=== PATIENT | female | born 1960 | race African-American/Black ===

== ENCOUNTER 2016-09-11 09:17 | Inpatient (IN) | payer MEDICAID, OTHER ==
[~2016-09-11] VITALS: Ht 170.2 cm; Wt 68.0 kg
[~2016-09-11 09:17] MED LIST: ADVAIR 250/501 PUFFS INH; CARDIZEM60 MG ORAL; CARVEDILOL12.5 MG ORAL; COREG6.25 MG ORAL; CYCLOBENZAPRINE10 MG ORAL; FERROUS SULFAT325 MG ORAL; FUROSEMIDE40 MG ORAL; HYDRALAZINE HCL50 MG ORAL; IBUPROFEN600 MG ORAL; LEVAQUIN500 MG ORAL; LISINOPRIL10 MG ORAL; MEDROL4 MG ORAL; NORCO 5-325 TA1 EACH ORAL; NORVASC10 MG ORAL; PROAIR HFA8.5 GM INH
[2016-09-11 10:00] VITALS: BP 174/137
[2016-09-11] MEDS: Ipratropium 0.02% Inh Soln 2.5ml UD HHN SCH ×3 (10:12→11:11)
[2016-09-11] MEDS: Albuterol ud Inhalation HHN SCH ×3 (10:12→11:11)
[2016-09-11] MEDS ORDERED: Solu-MEDROL 125mg Inj IVP ONE (10:15)
[2016-09-11 10:39] LABS: BASOPHILS % (AUTO) 0.8 % (0.0-2.0); EOSINOPHILS % (AUTO) 1.5 % (0.0-3.0); LYMPHOCYTES % (AUTO) 16.1 % (20.0-45.0); MEAN CORPUSCULAR HEMOGLOBIN 26.5 PG (27.0-31.0); MEAN CORPUSCULAR HGB CONC 31.3 G/DL (32.0-36.0); MEAN CORPUSCULAR VOLUME 85 FL (80-99); MEAN PLATELET VOLUME 10.8 FL (6.5-10.1); MONOCYTES % (AUTO) 6.8 % (1.0-10.0); NEUTROPHILS % (AUTO) 74.7 % (45.0-75.0); PLATELET COUNT 128 K/UL (150-450); RED BLOOD COUNT 5.39 M/UL (4.20-5.40); WHITE BLOOD COUNT 8.6 K/UL (4.8-10.8)
[2016-09-11 11:00] LABS: ALANINE AMINOTRANSFERASE 22 U/L (3-33); ALBUMIN/GLOBULIN RATIO 1.4 (1.0-2.7); ANION GAP 14 (5-15); ASPARTATE AMINO TRANSFERASE 35 U/L (5-40); CALCIUM 9.4 mg/dL (8.6-10.2); CARBON DIOXIDE 25 mEQ/L (20-30); CHLORIDE 102 mEQ/L (98-107); GLOMERULAR FILTRATION RATE > 60 mL/min (>60); HEMOLYSIS 5; POTASSIUM 4.1 mEQ/L (3.4-4.9); SODIUM 141 mEQ/L (135-145); TROPONIN I < 0.30 ng/mL (<=0.30)
[2016-09-11 11:10] LABS: CKMB 2.9 ng/mL (< 3.8)
[2016-09-11] MEDS ORDERED: Diltiazem 25mg/5ml IV ONE ×2 (11:15→14:00)
[2016-09-11 11:54] VITALS: BP 170/134
[2016-09-11] MEDS ORDERED: Ketorolac 30mg Inj IV PRN (12:45)
[2016-09-11] MEDS ORDERED: LORazepam Inj 2mg/ml 1ml IV PRN (12:45)
[2016-09-11] MEDS ORDERED: Nitroglycerin Subl 0.4mg tab (Bottle Of 25) SL PRN (12:45)
[2016-09-11] MEDS ORDERED: Morphine Sulfate 2mg/ml Inj IVP PRN (12:45)
[2016-09-11] MEDS ORDERED: DuoNeb 0.5-3(2.5)mg/3ml neb HHN PRN (12:45)
[2016-09-11] MEDS ORDERED: Promethazine/Codeine 5ml UD ORAL PRN (12:45)
[2016-09-11 14:34] VITALS: BP 176/133
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
[2016-09-11 15:11] VITALS: BP 177/135
[2016-09-11] MEDS ORDERED: NovoLOG Insulin Flexpen SUBQ SCH (16:30)
[2016-09-11 17:22] VITALS: BP 176/135
[2016-09-11] MEDS: HydrALAZINE 50mg tab ORAL SCH (18:16)
[2016-09-11] MEDS: Solu-MEDROL 125mg Inj IV SCH (18:16)
[2016-09-11] MEDS: Lisinopril 20mg tab ORAL SCH (18:16)
[2016-09-11 18:29] VITALS: BP 193/152
[2016-09-11] MEDS: Carvedilol 12.5mg tab ORAL SCH (18:38)
[2016-09-11] MEDS ORDERED: Zosyn 2.25gm inj ONE (19:11)
[2016-09-11] MEDS: Piperacillin/Tazobactam 2.25 GM in D5W 55 ML IV SCH ×2 (19:17→22:13)
[2016-09-11] MEDS: Heparin 5000 units/ml inj SUBQ SCH (21:00)
[2016-09-11] MEDS: Theophylline ER 100mg ORAL SCH (22:11)
[2016-09-12] VITALS (7 sets, daily range): BP systolic 106–155; BP diastolic 75–105
[2016-09-12] MEDS: HydrALAZINE 50mg tab ORAL SCH ×4 (00:39→18:56)
[2016-09-12] MEDS: Solu-MEDROL 125mg Inj IV SCH ×3 (00:39→12:16)
[2016-09-12] MEDS ORDERED: Zosyn 2.25gm inj ONE (06:08)
[2016-09-12] MEDS: Piperacillin/Tazobactam 2.25 GM in D5W 55 ML IV SCH ×3 (06:27→21:47)
[2016-09-12] MEDS: Carvedilol 12.5mg tab ORAL SCH ×2 (08:47→18:56)
[2016-09-12] MEDS: Theophylline ER 100mg ORAL SCH ×2 (08:47→21:47)
[2016-09-12] MEDS: Lisinopril 20mg tab ORAL SCH ×2 (08:47→18:57)
[2016-09-12] MEDS: Heparin 5000 units/ml inj SUBQ SCH ×2 (08:48→21:00)
[2016-09-12] MEDS: Furosemide 40mg tab ORAL SCH (08:48)
--- NOTE | 2016-09-12 13:39 | History and Physical ---
History of Present Illness General Reason for Hospitalization: Upper Respiratory Illness Present Illness HPI 56-year-old female presented to ED complaining of cough and shortness of breath. reports congestion for few days Cough productive, no fevers or chills + wheezing, intermittent SOB, no hemoptysis hx of COPD, active smoker also complained of chest pain, sharp, midsternal /10, nonradiating aptietn found to be hypertensive and tachycardic ECG with AF with RVR, Cardizem x 2 given in ER with improvement, troponin negative started on IV steroids patient admitted of being noncompliant with medications urine drug screen + cocaine admitted to tele for further management Allergies: Coded Allergies: SULFA (SULFONAMIDE ANTIBIOTICS) (Unverified Allergy, Unknown, 03/29/14) Medication History Scheduled Albuterol Sulfate* (Proair Hfa*), 1 PUFF INH Q6H Carvedilol (Coreg), 6.25 MG ORAL EVERY 12 HOURS Carvedilol* (Carvedilol*), 12.5 MG ORAL BID, (Reported) Diltiazem Hcl* (Cardizem*), 60 MG ORAL EVERY 8 HOURS Ferrous Sulfate* (Ferrous Sulfate*), 325 MG ORAL DAILY, (Reported) Fluticasone/Salmeterol (Advair 250-50 Diskus), 1 PUFF INH EVERY 12 HOURS Furosemide* (Lasix*), 40 MG ORAL DAILY, (Reported) Hydralazine Hcl* (Hydralazine Hcl*), 50 MG ORAL EVERY 6 HOURS, (Reported) Levofloxacin* (Levaquin*), 500 MG ORAL DAILY Lisinopril* (Lisinopril*), 10 MG ORAL BID Methylprednisolone* (Medrol*), 4 MG ORAL DAILY Patient History History Provided By: Patient Healthcare decision maker Resuscitation status Full Code Advanced Directive on File Past Medical/Surgical History Past Medical/Surgical History: (1) Afib (2) HTN (hypertension) (3) COPD (chronic obstructive pulmonary disease) (4) Drug abuse (5) Atrial flutter (6) CHF (congestive heart failure) Social History Social History: (1) Cocaine abuse Review of Systems Constitutional: Reports: no symptoms Eye: Reports: no symptoms ENT: Reports: no symptoms Respiratory: Reports: see HPI Cardiovascular: Reports: see HPI Gastrointestinal: Reports: no symptoms Genitourinary: Reports: no symptoms Musculoskeletal: Reports: no symptoms Skin: Reports: no symptoms Psychiatric: Reports: no symptoms Neurological: Reports: no symptoms Endocrine: Reports: no symptoms Hematologic/Lymphatic: Reports: no symptoms Physical Exam General Appearance: WD/WN, no apparent distress Lines, tubes and drains: peripheral HEENT: normocephalic, atraumatic, anicteric, mucous membranes moist, PERRL Neck: non-tender, normal alignment, supple Respiratory/Chest: chest wall non-tender, no respiratory distress, no accessory muscle use, expiratory wheezing - throughout all herrera Cardiovascular/Chest: normal peripheral pulses, no JVD, irregularly irregular - rate controlled Abdomen: normal bowel sounds, non tender, soft Extremities: normal range of motion, non-tender, no calf tenderness, normal capillary refill Skin Exam: normal pigmentation, warm/dry Neurologic: alert, oriented x 3, responsive, normal mood/affect Musculoskeletal: normal muscle bulk Last 24 Hour Vital Signs Date Time Temp Pulse Resp B/P Pulse Ox O2 Delivery O2 Flow Rate FiO2 09/12/16 13:08 104 106/78 09/12/16 12:00 98.2 85 18 106/78 98 Room Air 83 09/12/16 12:00 106/78 09/12/16 12:00 80 09/12/16 08:47 135/75 09/12/16 08:47 94 135/75 09/12/16 08:00 88 09/12/16 08:00 97.9 94 17 135/75 98 Room Air 09/12/16 06:35 93 20 Room Air 09/12/16 06:27 130/83 09/12/16 06:27 93 130/83 09/12/16 06:25 93 130/83 09/12/16 04:18 97.3 77 20 124/92 95 Room Air 09/12/16 04:08 94 09/12/16 00:39 155/105 09/12/16 00:25 97.2 84 20 155/105 97 Room Air 09/11/16 23:44 74 09/11/16 23:44 74 09/11/16 22:10 90 150/109 09/11/16 22:00 92 22 Room Air 21 09/11/16 21:15 82 09/11/16 20:53 90 25 141/112 98 Room Air 1/20/17 19:13 186/147 09/11/16 18:38 89 205/148 09/11/16 18:29 97.6 88 12 193/152 99 Room Air 09/11/16 18:16 184/145 09/11/16 18:16 184/145 09/11/16 17:22 100 20 176/135 100 Room Air 09/11/16 16:30 96 182/132 09/11/16 15:11 99 22 177/135 98 Room Air 09/11/16 14:34 99 20 176/133 96 Room Air 09/11/16 13:57 103 202/146 Intake and Output 09/11/16 09/12/16 19:00 07:00 Intake Total 700 ml Balance 700 ml Intake Oral 480 ml IV Total 220 ml # Voids 1 # Bowel Movements 1 Height (Feet): 5 Height (Inches): 7.00 Weight (Pounds): 150 Medications Current Medications Medications (Trade) Dose Ordered Sig/Ruben Route PRN Reason Start Time Stop Time Status Last Admin Dose Admin Albuterol/ Ipratropium (DuoNeb 0.5-3(2.5)mg/3ml) 3 ml Q4H PRN HHN dyspnea 09/11/16 12:45 09/16/16 12:44 Carvedilol (Coreg) 12.5 mg BID ORAL 09/11/16 18:00 10/11/16 17:59 09/12/16 08:47 Clonidine HCl (Catapres) 0.1 mg Q4H PRN ORAL SBP>160 09/11/16 20:30 10/11/16 20:29 Dextrose (Dextrose 50%) STAT PRN IV Hypoglycemia 09/11/16 12:45 10/11/16 12:44 Diltiazem HCl (Cardizem) 60 mg EVERY 8 HOURS ORAL 09/11/16 14:00 10/11/16 13:59 09/12/16 13:08 Furosemide (Lasix) 40 mg DAILY ORAL 09/12/16 09:00 10/12/16 08:59 09/12/16 08:48 Heparin Sodium (Porcine) (Heparin 5000 units/ml) 5,000 units EVERY 12 HOURS SUBQ 09/11/16 21:00 10/11/16 20:59 Hydralazine HCl (Apresoline) 50 mg EVERY 6 HOURS ORAL 09/11/16 18:00 2/19/17 17:59 09/12/16 06:27 Ketorolac Tromethamine (Toradol 30mg) 30 mg Q8H PRN IV moderate pain 4-6 09/11/16 12:45 09/16/16 12:44 Lisinopril (Prinivil) 10 mg BID ORAL 09/11/16 18:00 10/11/16 17:59 09/12/16 08:47 Lorazepam (Ativan 2mg/ml 1ml) 0.5 mg Q4H PRN IV For Anxiety 09/11/16 12:45 09/18/16 12:44 Methylprednisolone Sodium Succinate (Solu-MEDROL) 60 mg EVERY 6 HOURS IV 09/11/16 18:00 10/11/16 17:59 09/12/16 12:16 Morphine Sulfate (Morphine Sulfate) 2 mg Q4H PRN IVP severe pain 7-10 09/11/16 12:45 09/18/16 12:44 Nitroglycerin (Ntg) 0.4 mg Q5M X 3 DOSES PRN SL Prn Chest Pain 09/11/16 12:45 10/11/16 12:44 09/11/16 19:13 Ondansetron HCl (Zofran) 4 mg Q6H PRN IVP Nausea & Vomiting 09/11/16 12:45 10/11/16 12:44 Piperacillin Sod/ Tazobactam Sod/ Dextrose (Zosyn/D5W) 55 ml @ 110 mls/hr EVERY 8 HOURS IV 09/11/16 19:00 09/16/16 18:59 09/12/16 13:14 Promethazine HCl/ Codeine (Phenergan with Codeine) 5 ml Q6H PRN ORAL cough 09/11/16 12:45 10/11/16 12:44 Temazepam (Restoril) 15 mg HSPRN PRN ORAL Insomnia 09/11/16 12:45 09/18/16 12:44 Theophylline 100 mg 100 mg EVERY 12 HOURS ORAL 09/11/16 21:00 10/11/16 20:59 09/12/16 08:47 Assessment/Plan Assessment/Plan ASSESSMENT HTN emergency acute COPD exacerbation AF with RVR - resolved chronic A fib/A flutter Cocaine abuse noncompliance with medications active smoker PLAN OF CARE tele O2 HHN prn IV steroids and taper gradually, still severe wheeling empiric abx sputum cx fup with CXR , initial CXR finding c/w COPD, but no acute finding continue Theophylline antitussive prn BP management with BB , CCB, Hydralazine and NATHAN, optimize as needed A fib likely chronic, rate control with BB and Cardizem no anticoagulation yet -per cardio discretion cardio eval pending patient is not aware that she has arrhythmia continue Lasix, monitor renal parameters, lytes trend pro BNP ECHO DVT prophylaxis 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
--- NOTE | 2016-09-12 16:45 | Cardiology Progress Note ---
Subjective Subjective [id number] Objective Last 24 Hour Vital Signs Date Time Temp Pulse Resp B/P Pulse Ox O2 Delivery O2 Flow Rate FiO2 09/12/16 13:08 104 106/78 09/12/16 12:00 98.2 85 18 106/78 98 Room Air 83 09/12/16 12:00 106/78 09/12/16 12:00 80 09/12/16 08:47 135/75 09/12/16 08:47 94 135/75 09/12/16 08:00 88 09/12/16 08:00 97.9 94 17 135/75 98 Room Air 09/12/16 06:35 93 20 Room Air 09/12/16 06:27 130/83 09/12/16 06:27 93 130/83 09/12/16 06:25 93 130/83 09/12/16 04:18 97.3 77 20 124/92 95 Room Air 09/12/16 04:08 94 09/12/16 00:39 155/105 09/12/16 00:25 97.2 84 20 155/105 97 Room Air 09/11/16 23:44 74 09/11/16 23:44 74 09/11/16 22:10 90 150/109 09/11/16 22:00 92 22 Room Air 21 09/11/16 21:15 82 09/11/16 20:53 90 25 141/112 98 Room Air 09/11/16 19:13 186/147 09/11/16 18:38 89 205/148 09/11/16 18:29 97.6 88 12 193/152 99 Room Air 09/11/16 18:16 184/145 09/11/16 18:16 184/145 09/11/16 17:22 100 20 176/135 100 Room Air Intake and Output 09/11/16 09/12/16 19:00 07:00 Intake Total 700 ml Balance 700 ml Intake Oral 480 ml IV Total 220 ml # Voids 1 # Bowel Movements 1 Microbiology Date/Time Source Procedure Growth Status 09/11/16 10:10 Blood Blood Culture - Preliminary NO GROWTH AFTER 24 HOURS Resulted 09/11/16 10:10 Blood Blood Culture - Preliminary NO GROWTH AFTER 24 HOURS Resulted 09/11/16 10:10 Nasal Nares Influenza Types A,B Antigen ([facility]ARSON) - Final Complete KEILA VEGA Sep 12, 2016 16:44
[2016-09-13] VITALS: BP 136/94
[2016-09-13] MEDS: HydrALAZINE 50mg tab ORAL SCH ×5 (00:36→23:53)
[2016-09-13 04:00] VITALS: BP 141/90
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
[2016-09-13] MEDS: Solu-MEDROL 125mg Inj IV SCH ×2 (06:10→13:27)
[2016-09-13] MEDS: Piperacillin/Tazobactam 2.25 GM in D5W 55 ML IV SCH ×2 (06:11→13:25)
[2016-09-13 08:00] VITALS: BP 127/88
[2016-09-13 08:35] LABS: MEAN CORPUSCULAR HEMOGLOBIN 26.7 PG (27.0-31.0); MEAN CORPUSCULAR HGB CONC 31.2 G/DL (32.0-36.0); MEAN CORPUSCULAR VOLUME 86 FL (80-99); MEAN PLATELET VOLUME 11.9 FL (6.5-10.1); PLATELET COUNT 161 K/UL (150-450); RED BLOOD COUNT 5.45 M/UL (4.20-5.40); RED CELL DISTRIBUTION WIDTH 14.1 % (11.6-14.8); WHITE BLOOD COUNT 21.4 K/UL (4.8-10.8)
[2016-09-13 08:42] LABS: ANION GAP 17 (5-15); CALCIUM 9.6 mg/dL (8.6-10.2); CARBON DIOXIDE 22 mEQ/L (20-30); CHLORIDE 103 mEQ/L (98-107); CREATININE 1.1 mg/dL (0.5-0.9); GLOMERULAR FILTRATION RATE > 60 mL/min (>60); HEMOLYSIS 6; POTASSIUM 3.9 mEQ/L (3.4-4.9); SODIUM 142 mEQ/L (135-145)
[2016-09-13] MEDS: Theophylline ER 100mg ORAL SCH ×2 (08:48→21:38)
[2016-09-13] MEDS: Furosemide 40mg tab ORAL SCH (08:48)
[2016-09-13] MEDS: Lisinopril 20mg tab ORAL SCH ×2 (08:48→17:15)
[2016-09-13] MEDS: Carvedilol 12.5mg tab ORAL SCH ×2 (08:48→17:15)
[2016-09-13] MEDS: Heparin 5000 units/ml inj SUBQ SCH (08:49)
[2016-09-13 11:08] LABS: BAND NEUTROPHILS % (MANUAL) 0 % (0-8); BASOPHILS % (MANUAL) 0 % (0-2); EOSINOPHILS % (MANUAL) 0 % (0-3); LYMPHOCYTES % (MANUAL) 4 % (20-45); NEUTROPHILS % (MANUAL) 95 % (45-75); PLATELET ESTIMATE ADEQUATE; PLATELET MORPHOLOGY NORMAL; TOTAL CELLS COUNTED 100
--- NOTE | 2016-09-13 11:45 | Diagnostic Imaging Report ---
Indications: Technique: Portable AP chest Findings: Comparison: 11/03/2016 Cardiac silhouette remains enlarged. Pulmonary vasculature appears mildly redistributed.. Mild bilateral interstitial prominence, right lung base linear densities unchanged. Lungs and pleura remain otherwise clear. Mild calcification and elongation of the aortic arch is unchanged. IMPRESSION: Stable mild bilateral interstitial prominence. Whether this represents chronic interstitial disease, persistent versus recurrent mild pulmonary edema in the setting of congestive heart failure cannot be differentiated Persistent subsegmental atelectasis versus scarring right lung base No new abnormality
[2016-09-13 12:00] VITALS: BP 124/87
--- NOTE | 2016-09-13 14:20 | Pulmonology Progress Note ---
Assessment/Plan Assessment/Plan ASSESSMENT HTN emergency acute COPD exacerbation AF with RVR - resolved chronic A fib/A flutter Cocaine abuse noncompliance with medications active smoker PLAN OF CARE O2 HHN prn IV steroids and taper today, respiratory status with significant improvement leucocytosis likely reactive 2 to steroids afebrile, non toxic, clinically with imrpvoemtn empiric abx sputum cx fup with CXR in am , initial CXR finding c/w COPD, but no acute finding continue Theophylline antitussive prn BP management with BB , CCB, Hydralazine and NATHAN, stable cardio eval appreciated A fib /flutter chronic, rate control with BB and Cardizem per cardio a/coagulation can wait, until seen by PMD, will start on ASA for now continue Lasix, monitor renal parameters, lytes trend pro BNP ECHO DVT prophylaxis addiction treatment counselor on abstinence from street drugs addiction treatment counselor on abstinence from smoking added Nicotine patch transfer to [place] case discussed and evaluated by supervising physician Subjective Allergies: Coded Allergies: SULFA (SULFONAMIDE ANTIBIOTICS) (Unverified Allergy, Unknown, 03/29/14) Subjective BP stable less wheezing, less congestion and cough seen and evaluated by cardio remains in permanent A fib/flutter, rate controlled leukocytosis today, but afebrile, non toxic Objective Last 24 Hour Vital Signs Date Time Temp Pulse Resp B/P Pulse Ox O2 Delivery O2 Flow Rate FiO2 09/13/16 13:26 94 124/82 09/13/16 12:15 124/82 09/13/16 09:54 88 18 Room Air 21 09/13/16 08:48 127/88 09/13/16 08:48 98 127/88 09/13/16 08:00 98.0 98 17 127/88 96 Room Air 93 09/13/16 08:00 84 09/13/16 06:27 155/95 09/13/16 06:27 95 155/90 09/13/16 04:00 97.1 90 19 141/90 98 Room Air 09/13/16 04:00 84 09/13/16 00:36 136/94 09/13/16 00:00 97.0 100 19 136/94 99 Room Air 09/13/16 00:00 100 09/12/16 21:51 86 148/96 09/12/16 20:34 84 20 Room Air 21 09/12/16 20:00 83 09/12/16 20:00 97.4 85 20 153/86 96 Room Air 09/12/16 18:57 146/102 09/12/16 18:56 146/102 09/12/16 18:56 91 146/102 09/12/16 16:00 97.8 81 19 123/88 98 Room Air 09/12/16 16:00 83 Intake and Output 09/12/16 09/13/16 18:59 06:59 Intake Total 730 ml 665 ml Balance 730 ml 665 ml Intake Oral 620 ml 500 ml IV Total 110 ml 165 ml # Voids 2 2 Objective General Appearance: WD/WN, no apparent distress Lines, tubes and drains: peripheral HEENT: normocephalic, atraumatic, anicteric, mucous membranes moist, PERRL Neck: non-tender, normal alignment, supple Respiratory/Chest: chest wall non-tender, no respiratory distress, no accessory muscle use, expiratory wheezing - throughout all herrera Cardiovascular/Chest: normal peripheral pulses, no JVD, irregularly irregular - rate controlled Abdomen: normal bowel sounds, non tender, soft Extremities: normal range of motion, non-tender, no calf tenderness, normal capillary refill Skin Exam: normal pigmentation, warm/dry Neurologic: alert, oriented x 3, responsive, normal mood/affect Musculoskeletal: normal muscle bulk Microbiology Date/Time Source Procedure Growth Status 09/11/16 10:10 Blood Blood Culture - Preliminary NO GROWTH AFTER 24 HOURS Resulted 09/11/16 10:10 Blood Blood Culture - Preliminary NO GROWTH AFTER 24 HOURS Resulted 09/11/16 10:10 Nasal Nares Influenza Types A,B Antigen (KARSON) - Final Complete Laboratory Tests 09/13/16 07:20: White Blood Count 21.4H, Red Blood Count 5.45H, Hemoglobin 14.5, Hematocrit 46.6 , Mean Corpuscular Volume 86, Mean Corpuscular Hemoglobin 26.7L, Mean Corpuscular Hemoglobin Concent 31.2L, Red Cell Distribution Width 14.1, Platelet Count 161, Mean Platelet Volume 11.9H, Neutrophils (%) (Auto) , Lymphocytes (%) (Auto) , Monocytes (%) (Auto) , Eosinophils (%) (Auto) , Basophils (%) (Auto) , Differential Total Cells Counted 100, Neutrophils % ( Manual) 95H, Lymphocytes % (Manual) 4L, Monocytes % (Manual) 1, Eosinophils % ( Manual) 0, Basophils % (Manual) 0, Band Neutrophils 0, Platelet Estimate Adequate, Platelet Morphology Normal, Red Blood Cell Morphology Normal, Sodium Level 142, Potassium Level 3.9, Chloride Level 103, Carbon Dioxide Level 22, Anion Gap 17H, Blood Urea Nitrogen 25H, Creatinine 1.1H, Estimat Glomerular Filtration Rate > 60, Glucose Level 129H, Calcium Level 9.6 Current Medications Medications (Trade) Dose Ordered Sig/Ruben Route PRN Reason Start Time Stop Time Status Last Admin Dose Admin Albuterol/ Ipratropium (DuoNeb 0.5-3(2.5)mg/3ml) 3 ml Q4H PRN HHN dyspnea 09/11/16 12:45 09/16/16 12:44 Carvedilol (Coreg) 12.5 mg BID ORAL 09/11/16 18:00 10/11/16 17:59 09/13/16 08:48 Clonidine HCl (Catapres) 0.1 mg Q4H PRN ORAL SBP>160 09/11/16 20:30 10/11/16 20:29 Dextrose (Dextrose 50%) STAT PRN IV Hypoglycemia 09/11/16 12:45 10/11/16 12:44 Diltiazem HCl (Cardizem) 60 mg EVERY 8 HOURS ORAL 09/11/16 14:00 10/11/16 13:59 09/13/16 13:26 Furosemide (Lasix) 40 mg DAILY ORAL 09/12/16 09:00 10/12/16 08:59 09/13/16 08:48 Heparin Sodium (Porcine) (Heparin 5000 units/ml) 5,000 units EVERY 12 HOURS SUBQ 09/11/16 21:00 10/11/16 20:59 Hydralazine HCl (Apresoline) 50 mg EVERY 6 HOURS ORAL 09/11/16 18:00 10/11/16 17:59 09/13/16 12:15 Ketorolac Tromethamine (Toradol 30mg) 30 mg Q8H PRN IV moderate pain 4-6 09/11/16 12:45 09/16/16 12:44 Lisinopril (Prinivil) 10 mg BID ORAL 09/11/16 18:00 10/11/16 17:59 09/13/16 08:48 Lorazepam (Ativan 2mg/ml 1ml) 0.5 mg Q4H PRN IV For Anxiety 09/11/16 12:45 09/18/16 12:44 Methylprednisolone Sodium Succinate (Solu-MEDROL) 60 mg Q8HR IV 09/13/16 06:00 10/13/16 05:59 09/13/16 13:27 Morphine Sulfate (Morphine Sulfate) 2 mg Q4H PRN IVP severe pain 7-10 09/11/16 12:45 09/18/16 12:44 Nicotine (Nicoderm) 1 patch Q24H TDERMAL 09/12/16 16:00 10/12/16 15:59 09/12/16 16:27 Nitroglycerin (Ntg) 0.4 mg Q5M X 3 DOSES PRN SL Prn Chest Pain 09/11/16 12:45 10/11/16 12:44 09/11/16 19:13 Ondansetron HCl (Zofran) 4 mg Q6H PRN IVP Nausea & Vomiting 09/11/16 12:45 10/11/16 12:44 Piperacillin Sod/ Tazobactam Sod/ Dextrose (Zosyn/D5W) 55 ml @ 110 mls/hr EVERY 8 HOURS IV 09/11/16 19:00 09/16/16 18:59 09/13/16 13:25 Promethazine HCl/ Codeine (Phenergan with Codeine) 5 ml Q6H PRN ORAL cough 09/11/16 12:45 10/11/16 12:44 Temazepam (Restoril) 15 mg HSPRN PRN ORAL Insomnia 09/11/16 12:45 09/18/16 12:44 Theophylline 100 mg 100 mg EVERY 12 HOURS ORAL 09/11/16 21:00 10/11/16 20:59 09/13/16 08:48 [facility]Akanksha NP Sep 13, 2016 14:20
--- NOTE | 2016-09-13 15:13 | Cardiology Progress Note ---
Assessment/Plan Problem List: (1) COPD exacerbation (2) Atrial flutter (3) HTN (hypertension) Status: stable, progressing Status Narrative Mrs. Menezes has HTN, AFL and was adm w/ COPD exacerbation. She has preserved LV systolic function, but severe MR by echo. Assessment/Plan She is responding to treatment for copd exacerbation - steroids, bronchodil, antibiotics Will start anticoagulation for AFL, given chads vasc score of 2 (or 3, if pt w / hx of chf) Consider for AFL ablation when pulm /ID status cleared. Subjective ROS Limited/Unobtainable: No Subjective Pt w/ cough, no c/o palpitations or dyspnea Objective Last 24 Hour Vital Signs Date Time Temp Pulse Resp B/P Pulse Ox O2 Delivery O2 Flow Rate FiO2 09/13/16 13:26 94 124/82 09/13/16 12:15 124/82 09/13/16 12:00 98.0 94 17 124/87 96 90 09/13/16 09:54 88 18 Room Air 21 09/13/16 08:48 127/88 09/13/16 08:48 98 127/88 09/13/16 08:00 98.0 98 17 127/88 96 Room Air 93 09/13/16 08:00 84 09/13/16 06:27 155/95 09/13/16 06:27 95 155/90 09/13/16 04:00 97.1 90 19 141/90 98 Room Air 09/13/16 04:00 84 09/13/16 00:36 136/94 09/13/16 00:00 97.0 100 19 136/94 99 Room Air 09/13/16 00:00 100 09/12/16 21:51 86 148/96 09/12/16 20:34 84 20 Room Air 21 09/12/16 20:00 83 09/12/16 20:00 97.4 85 20 153/86 96 Room Air 09/12/16 18:57 146/102 09/12/16 18:56 146/102 09/12/16 18:56 91 146/102 09/12/16 16:00 97.8 81 19 123/88 98 Room Air 09/12/16 16:00 83 General Appearance: WD/WN, no apparent distress, alert EENT: PERRL/EOMI Neck: no JVD Rhythm: other - afl Cardiovascular: normal rate, regular rhythm, systolic murmur Respiratory/Chest: rhonchi - bilaterally - scattered rhonchi bilat Abdomen: non tender, soft Extremities: no swelling Intake and Output 09/12/16 09/13/16 19:00 07:00 Intake Total 730 ml 665 ml Balance 730 ml 665 ml Intake Oral 620 ml 500 ml IV Total 110 ml 165 ml # Voids 2 2 Laboratory Tests Test 09/13/16 07:20 White Blood Count 21.4 K/UL (4.8-10.8) H Red Blood Count 5.45 M/UL (4.20-5.40) H Hemoglobin 14.5 G/DL (12.0-16.0) Hematocrit 46.6 % (37.0-47.0) Mean Corpuscular Volume 86 FL (80-99) Mean Corpuscular Hemoglobin 26.7 PG (27.0-31.0) L Mean Corpuscular Hemoglobin Concent 31.2 G/DL (32.0-36.0) L Red Cell Distribution Width 14.1 % (11.6-14.8) Platelet Count 161 K/UL (150-450) Mean Platelet Volume 11.9 FL (6.5-10.1) H Neutrophils (%) (Auto) % (45.0-75.0) Lymphocytes (%) (Auto) % (20.0-45.0) Monocytes (%) (Auto) % (1.0-10.0) Eosinophils (%) (Auto) % (0.0-3.0) Basophils (%) (Auto) % (0.0-2.0) Differential Total Cells Counted 100 Neutrophils % (Manual) 95 % (45-75) H Lymphocytes % (Manual) 4 % (20-45) L Monocytes % (Manual) 1 % (1-10) Eosinophils % (Manual) 0 % (0-3) Basophils % (Manual) 0 % (0-2) Band Neutrophils 0 % (0-8) Platelet Estimate Adequate Platelet Morphology Normal Red Blood Cell Morphology Normal Sodium Level 142 mEQ/L (135-145) Potassium Level 3.9 mEQ/L (3.4-4.9) Chloride Level 103 mEQ/L (98-107) Carbon Dioxide Level 22 mEQ/L (20-30) Anion Gap 17 (5-15) H Blood Urea Nitrogen 25 mg/dL (7-23) H Creatinine 1.1 mg/dL (0.5-0.9) H Estimat Glomerular Filtration Rate > 60 mL/min (>60) Glucose Level 129 mg/dL (74-106) H Calcium Level 9.6 mg/dL (8.6-10.2) Microbiology Date/Time Source Procedure Growth Status 09/11/16 10:10 Blood Blood Culture - Preliminary NO GROWTH AFTER 24 HOURS Resulted 09/11/16 10:10 Blood Blood Culture - Preliminary NO GROWTH AFTER 24 HOURS Resulted 09/11/16 10:10 Nasal Nares Influenza Types A,B Antigen (KARSON) - Final Complete LEA GARIBAY Sep 13, 2016 15:13
[2016-09-13 16:00] VITALS: BP 131/76
[2016-09-13 16:17] LABS: PROTHROMBIN TIME 10.3 SEC (9.30-11.50)
[2016-09-13] MEDS ORDERED: Warfarin Sodium 5mg ORAL ONE (17:00)
[2016-09-13] MEDS ORDERED: Enoxaparin 60mg Inj SUBQ SCH (17:00)
[2016-09-13 20:00] VITALS: BP 120/79
[2016-09-13] MEDS ORDERED: Solu-MEDROL 125mg Inj IV SCH (21:00)
[2016-09-13] MEDS ORDERED: Zosyn 3.375gm q8h **Extended infusion IVPB SCH ×2 (22:00)
[2016-09-14] VITALS: BP 129/94
[2016-09-14] MEDS ORDERED: Nitroglycerin Subl 0.4mg tab (Bottle Of 25) SL PRN (01:30)
[2016-09-14 04:00] VITALS: BP 126/84
[2016-09-14] MEDS ORDERED: Morphine Sulfate 2mg/ml Inj IVP PRN (04:45)
[2016-09-14] MEDS ORDERED: LORazepam Inj 2mg/ml 1ml IV PRN (04:45)
[2016-09-14] MEDS ORDERED: DuoNeb 0.5-3(2.5)mg/3ml neb HHN PRN (04:45)
[2016-09-14] MEDS ORDERED: Piperacillin/Tazobactam 3.375 GM in D5W 110 ML IVPB SCH (06:00)
[2016-09-14] MEDS: HydrALAZINE 50mg tab ORAL SCH ×4 (06:29→22:00)
[2016-09-14] MEDS ORDERED: Promethazine/Codeine 5ml UD ORAL PRN (06:45)
--- NOTE | 2016-09-14 07:17 | Consultation ---
Consult Note Consult Note ID dic # [id number] AUBRIE CHASE M.D. Sep 14, 2016 07:17
[2016-09-14 08:15] VITALS: BP 125/88
[2016-09-14 08:44] LABS: MEAN CORPUSCULAR HEMOGLOBIN 27.1 PG (27.0-31.0); MEAN CORPUSCULAR HGB CONC 31.2 G/DL (32.0-36.0); MEAN CORPUSCULAR VOLUME 87 FL (80-99); MEAN PLATELET VOLUME 9.8 FL (6.5-10.1); PLATELET COUNT 182 K/UL (150-450); RED BLOOD COUNT 6.03 M/UL (4.20-5.40); RED CELL DISTRIBUTION WIDTH 14.3 % (11.6-14.8); WHITE BLOOD COUNT 21.3 K/UL (4.8-10.8)
[2016-09-14 08:53] LABS: CALCIUM 9.4 mg/dL (8.6-10.2); CREATININE 1.4 mg/dL (0.5-0.9); GLOMERULAR FILTRATION RATE 47.1 mL/min (>60); POTASSIUM 3.2 mEQ/L (3.4-4.9)
[2016-09-14] MEDS ORDERED: Enoxaparin 60mg Inj SUBQ SCH (09:00)
[2016-09-14] MEDS ORDERED: Solu-MEDROL 125mg Inj IV SCH (09:00)
[2016-09-14] MEDS ORDERED: Aspirin EC 81mg tab ORAL SCH (09:00)
[2016-09-14] MEDS ORDERED: Furosemide 40mg tab ORAL SCH (09:00)
[2016-09-14 09:01] LABS: INR 1.1 (0.9-1.1); PROTHROMBIN TIME 11.1 SEC (9.30-11.50)
[2016-09-14 10:05] LABS: ANISOCYTOSIS 1+; BAND NEUTROPHILS % (MANUAL) 0 % (0-8); BASOPHILS % (MANUAL) 0 % (0-2); EOSINOPHILS % (MANUAL) 0 % (0-3); LYMPHOCYTES % (MANUAL) 1 % (20-45); NEUTROPHILS % (MANUAL) 97 % (45-75); PLATELET ESTIMATE ADEQUATE; PLATELET MORPHOLOGY NORMAL; TOTAL CELLS COUNTED 100
--- NOTE | 2016-09-14 10:37 | Diagnostic Imaging Report ---
Indication: Dyspnea Comparison: 09/11/16 A single view chest radiograph was obtained. Findings: Cardiomediastinal appearance is within normal limits for age. Pulmonary vascularity is appropriate. The diaphragmatic contour is smooth and costophrenic angles are sharp. No pleural effusions are identified. The bones are unremarkable. Impression: No acute findings
[2016-09-14] MEDS: Aspirin EC 81mg tab ORAL SCH (10:54)
[2016-09-14] MEDS: Lisinopril 10mg tab ORAL SCH ×2 (10:54→16:59)
[2016-09-14] MEDS: Carvedilol 12.5mg tab ORAL SCH ×3 (10:55→22:35)
[2016-09-14] MEDS: Theophylline ER 100mg ORAL SCH ×2 (10:58→22:35)
[2016-09-14 12:00] VITALS: BP 135/77
[2016-09-14 16:00] VITALS: BP 130/90
[2016-09-14] MEDS ORDERED: Warfarin Sodium 5mg ORAL ONE (17:00)
--- NOTE | 2016-09-14 17:11 | Consultation ---
Consult Note Consult Note asked to evaluate for rising serum Cr Chief Complaint: Upper Respiratory Illness HPI 56-year-old female presents to ED complaining of cough and shortness of breath. Complaining of chest pain. Notes history of COPD and heart disease. Denies any fevers or chills. Notes productive cough. Patient has history of COPD. Stating chest pain. Sharp. Midsternal. 03/01. No other aggravating relieving factors. Patient is hypertensive and tachycardic. Patient states that she has not taken her blood pressure medications today. Denies any other associated symptoms Allergies: SULFA (SULFONAMIDE ANTIBIOTICS) (Unverified Allergy, Unknown, 03/29/14) Patient History Past Medical History: HTN, COPD Past Surgical History: none Patient interviewed and examined and data reviewed. admirring diagnosis in ER: Hypertensive emergency Drug abuse / coccain in urine COPD exacerbation Atrial flutter . Assessment/Plan . Renal Impression: Rising Scr likely due to Lasix - HTN OOC Arrythmia Drug Abuse COPD Sugg> Adjust BP meds- DC Lasix Taper prednisone Monitor renal parameters- K supplement Gastric protection Per orders- EZEKIEL BRUNO Sep 14, 2016 17:11
--- NOTE | 2016-09-14 17:27 | Consultation ---
DATE OF CONSULTATION: 09/14/2016 REFERRING PHYSICIAN: Enid Quezada M.D. REASON FOR CONSULTATION: Evaluation of the patient for leukocytosis, chronic obstructive pulmonary disease exacerbation, and antibiotic management. HISTORY OF PRESENT ILLNESS: The patient is a 56-year-old female, who came to the hospital with cough and shortness of breath. The patient was admitted here with impression of pneumonia and chronic obstructive pulmonary disease exacerbation. Infectious disease consultation requested for further evaluation of the patient's antibiotic management. PAST MEDICAL HISTORY: Significant for, 1. Atrial fibrillation. 2. Hypertension. 3. Chronic obstructive pulmonary disease. 4. Anemia. ALLERGIES: Sulfa. MEDICATIONS: Zosyn and Solu-Medrol. REVIEW OF SYSTEMS: HEENT: No recent change in vision or hearing. Pulmonary: The patient has cough and shortness of breath that has improved. The patient has white sputum. Cardiovascular: No chest pain. Gastrointestinal: No nausea or vomiting. Genitourinary: No dysuria. Musculoskeletal: No pain in the extremities. Neurologic: No seizure. PHYSICAL EXAMINATION: VITAL SIGNS: Temperature 97, blood pressure 126/84, and respiratory rate 18. HEENT: Mild pale conjunctivae. No icterus. NECK: No lymphadenopathy. CHEST: Coarse breathing sounds. HEART: S1 and S2. ABDOMEN: Soft. EXTREMITIES: No cyanosis at this time. NEUROLOGIC: Awake. LABORATORY DATA: White blood cells 21.4, hemoglobin 14, and platelets 161,000. BUN 35, creatinine 1. ALT, AST, and alkaline phosphatase within normal range. Urine toxicology is positive for cocaine. Sputum culture is pending. Blood culture is pending. Rapid influenza test is negative. Chest x-ray showed bilateral interstitial prominence. ASSESSMENT: The patient is a 56-year-old female with multiple medical problems who was admitted to this medical center with pneumonia and chronic obstructive pulmonary disease exacerbation. The patient has increased white blood cells due to Solu-Medrol. The patient would benefit from coverage of atypicals. PLAN: 1. We change Zosyn to Levaquin for 5 days. 2. Monitor CBC and monitor BMP. 3. Monitor cultures (blood, sputum). 4. Monitor chest x-ray. 5. Based on the patient's clinical course and laboratories, we will do further recommendations. Thank you, Dr. Quezada, for allowing me to participate in the care of this patient. I will follow the patient with you during this hospitalization. Amadou Boyd M.D. DR: DEMETRIUS JOB#: [id number] CC:
--- NOTE | 2016-09-14 17:52 | Pulmonology Progress Note ---
Assessment/Plan Problems: (1) COPD exacerbation (2) Leukocytosis (3) Afib (4) HTN (hypertension) Assessment/Plan IV antibiotics respiratory treatment cardiology to follow for heart rate control Subjective Interval Events: feeling better Allergies: Coded Allergies: SULFA (SULFONAMIDE ANTIBIOTICS) (Unverified Allergy, Unknown, 03/29/14) Objective Last 24 Hour Vital Signs Date Time Temp Pulse Resp B/P Pulse Ox O2 Delivery O2 Flow Rate FiO2 09/14/16 16:59 130/90 09/14/16 16:59 130/90 09/14/16 16:59 83 130/90 09/14/16 16:00 97.5 83 18 130/90 98 Room Air 09/14/16 13:38 135/77 09/14/16 13:38 66 135/77 09/14/16 12:00 97.6 66 21 135/77 97 Room Air 09/14/16 10:55 75 125/88 09/14/16 10:54 125/88 09/14/16 08:15 98.0 75 21 125/88 97 Room Air 09/14/16 07:45 87 16 Room Air 09/14/16 06:30 86 126/84 09/14/16 06:29 126/84 09/14/16 04:00 97.3 86 18 126/84 98 Room Air 09/14/16 00:00 97.7 90 20 129/94 95 Room Air 09/13/16 23:53 129/94 09/13/16 21:38 86 120/79 09/13/16 20:22 86 18 Room Air 21 09/13/16 20:00 97.4 93 20 120/79 95 Room Air Intake and Output 09/13/16 09/14/16 19:00 07:00 Intake Total 110 ml 822.5 ml Balance 110 ml 822.5 ml Intake Oral 740 ml IV Total 110 ml 82.5 ml # Voids 4 1 # Bowel Movements 1 General Appearance: WD/WN HEENT: normocephalic, anicteric Respiratory/Chest: chest wall non-tender, lungs clear Cardiovascular: normal peripheral pulses, regular rhythm Abdomen: normal bowel sounds, soft, non tender Skin: no rash Neurologic/Psychiatric: reception interviewer II-XII grossly normal Microbiology Date/Time Source Procedure Growth Status 09/13/16 03:30 Sputum Gram Stain - Final Resulted 09/13/16 03:30 Sputum Sputum Culture - Preliminary NO GROWTH Resulted Laboratory Tests 09/14/16 08:10: White Blood Count 21.3H, Red Blood Count 6.03H, Hemoglobin 16.3H, Hematocrit 52.3H, Mean Corpuscular Volume 87, Mean Corpuscular Hemoglobin 27.1, Mean Corpuscular Hemoglobin Concent 31.2L, Red Cell Distribution Width 14.3, Platelet Count 182, Mean Platelet Volume 9.8, Neutrophils (%) (Auto) , Lymphocytes (%) (Auto) , Monocytes (%) (Auto) , Eosinophils (%) (Auto) , Basophils (%) (Auto) , Differential Total Cells Counted 100, Neutrophils % ( Manual) 97H, Lymphocytes % (Manual) 1L, Monocytes % (Manual) 2, Eosinophils % ( Manual) 0, Basophils % (Manual) 0, Band Neutrophils 0, Platelet Estimate Adequate, Platelet Morphology Normal, Hypochromasia , Anisocytosis 1+, Prothrombin Time 11.1, Prothromb Time International Ratio 1.1, Sodium Level 140 , Potassium Level 3.2L, Chloride Level 98, Carbon Dioxide Level 25, Anion Gap 17H, Blood Urea Nitrogen 32H, Creatinine 1.4H, Estimat Glomerular Filtration Rate 47.1, Glucose Level 282#H, Calcium Level 9.4 Current Medications Medications (Trade) Dose Ordered Sig/Ruben Route PRN Reason Start Time Stop Time Status Last Admin Dose Admin Albuterol/ Ipratropium (DuoNeb 0.5-3(2.5)mg/3ml) 3 ml Q4H PRN HHN dyspnea 09/14/16 04:45 09/19/16 04:44 Aspirin (Ecotrin) 81 mg DAILY ORAL 09/14/16 09:00 10/14/16 08:59 09/14/16 10:54 Carvedilol (Coreg) 25 mg Q12HR ORAL 09/14/16 21:00 10/14/16 20:59 Clonidine HCl (Catapres) 0.1 mg Q4H PRN ORAL SBP>160 09/14/16 04:30 10/14/16 04:29 Dextrose (Dextrose 50%) STAT PRN IV Hypoglycemia 09/14/16 12:45 10/14/16 12:44 Diltiazem HCl (Cardizem) 60 mg EVERY 8 HOURS ORAL 09/14/16 06:00 10/14/16 05:59 09/14/16 13:38 Enoxaparin Sodium (Lovenox) 70 mg EVERY 12 HOURS SUBQ 09/14/16 21:00 10/14/16 20:59 Hydralazine HCl (Apresoline) 50 mg EVERY 8 HOURS ORAL 09/14/16 22:00 10/14/16 21:59 Levofloxacin (Levaquin 750mg/ D5W) 150 ml @ 100 mls/hr Q24H IVPB 09/14/16 09:00 09/21/16 08:59 09/14/16 10:52 Lisinopril (Zestril) 10 mg DAILY ORAL 09/15/16 09:00 10/15/16 08:59 Lorazepam (Ativan 2mg/ml 1ml) 0.5 mg Q4H PRN IV For Anxiety 09/14/16 04:45 09/21/16 04:44 Methylprednisolone Sodium Succinate (Solu-MEDROL) 40 mg EVERY 12 HOURS IV 09/14/16 21:00 10/14/16 20:59 Morphine Sulfate (Morphine Sulfate) 2 mg Q4H PRN IVP severe pain 7-10 09/14/16 04:45 09/21/16 04:44 Nicotine (Nicoderm) 1 patch Q24H TDERMAL 09/14/16 16:00 10/14/16 15:59 09/14/16 17:00 Nitroglycerin (Ntg) 0.4 mg Q5M X 3 DOSES PRN SL Prn Chest Pain 09/14/16 01:30 10/14/16 01:29 Ondansetron HCl (Zofran) 4 mg Q6H PRN IVP Nausea & Vomiting 09/14/16 06:45 10/14/16 06:44 Potassium Chloride (K-Dur) 20 meq TWICE A DAY ORAL 09/14/16 18:00 09/15/16 17:59 Promethazine HCl/ Codeine (Phenergan with Codeine) 5 ml Q6H PRN ORAL cough 09/14/16 06:45 10/14/16 06:44 Ranitidine HCl (Zantac) 150 mg DAILY ORAL 09/14/16 18:00 10/14/16 17:59 Temazepam (Restoril) 15 mg HSPRN PRN ORAL Insomnia 09/14/16 12:45 09/21/16 12:44 Theophylline (Vasiliy-Dur) 100 mg EVERY 12 HOURS ORAL 09/14/16 09:00 10/14/16 08:59 09/14/16 10:58 Warfarin Sodium 1 ea 1 ea DAILY PRN MISC Per rx protocol 09/14/16 09:00 10/14/16 08:59 CANDIDO MARQUES Sep 14, 2016 17:52
--- NOTE | 2016-09-14 18:31 | Cardiology Report ---
APPROVED REPORT EXAM: Two-dimensional and M-mode echocardiogram with Doppler and color Doppler. INDICATION Shortness of Breath M-Mode DIMENSIONS IVSd1.9 (0.7-1.1cm)Left Atrium (MM)6.1 (1.6-4.0cm) LVDd6.1 (3.5-5.6cm)Aortic Root2.7 (2.0-3.7cm) PWd1.4 (0.7-1.1cm)Aortic Cusp Exc.1.7 (1.5-2.0cm) LVDs2.2 (2.5-4.0cm) PWs1.1 cm Normal left ventricular systolic function and wall motion. Left ventricular ejection fraction estimated to be 50-55%. High E/E' ratio is suggestive of increased intracardiac filling pressure. Mild left ventricular hypertrophy. No evidence of pericardial effusion. Moderate bi-atrial enlargment. Mild Left ventricular enlargement. Right venrticular chamber size is within normal limits. Mild focal aortic valve sclerosis with adequate cusp excursion. Mildly thickened mitral valve leaflets with normal excursion. Mild mitral annulus and aortic root calcification. Pulmonic valve not well visualized. Normal tricuspid valve structure. IVC dilated at 2.1cm with physiologic collapse. A color flow and spectral Doppler study was performed and revealed: Trace aortic regurgitation. Severe mitral regurgitation. Mitral inflow indicate normal left ventricular diastolic function. Mild tricuspid regurgitation. Tricuspid systolic velocities suggests peak right ventricular systolic pressure of 30 mmHg. No pulmonic regurgitation present.
--- NOTE | 2016-09-14 19:47 | Cardiology Progress Note ---
Assessment/Plan Assessment/Plan copd afib chronic htn cociane abuse hx chf sig MR prior echo showed sig mr lwo dose diuretic increase acei not sure how safe a candidate for chronic anticoagulation she will be have recommended that she see her own recruitment and outreach assistant has apoint this to [facility] for anticoagulation patriciaamdin teaching Subjective Cardiovascular: Denies: chest pain, irregular heart rate, lightheadedness Respiratory: Reports: SOB at rest, SOB with excertion, shortness of breath Gastrointestinal/Abdominal: Denies: abdominal pain Genitourinary: Denies: burning Objective Last 24 Hour Vital Signs Date Time Temp Pulse Resp B/P Pulse Ox O2 Delivery O2 Flow Rate FiO2 09/14/16 16:59 130/90 09/14/16 16:59 130/90 09/14/16 16:59 83 130/90 09/14/16 16:00 97.5 83 18 130/90 98 Room Air 09/14/16 13:38 135/77 09/14/16 13:38 66 135/77 09/14/16 12:00 97.6 66 21 135/77 97 Room Air 09/14/16 10:55 75 125/88 09/14/16 10:54 125/88 09/14/16 08:15 98.0 75 21 125/88 97 Room Air 09/14/16 07:45 87 16 Room Air 09/14/16 06:30 86 126/84 09/14/16 06:29 126/84 09/14/16 04:00 97.3 86 18 126/84 98 Room Air 09/14/16 00:00 97.7 90 20 129/94 95 Room Air 09/13/16 23:53 129/94 09/13/16 21:38 86 120/79 09/13/16 20:22 86 18 Room Air 21 09/13/16 20:00 97.4 93 20 120/79 95 Room Air General Appearance: alert Neck: no JVD Cardiovascular: irregularly irregular Respiratory/Chest: lungs clear, normal breath sounds Abdomen: normal bowel sounds, non tender, soft Extremities: no swelling Intake and Output 09/13/16 09/14/16 19:00 07:00 Intake Total 110 ml 822.5 ml Balance 110 ml 822.5 ml Intake Oral 740 ml IV Total 110 ml 82.5 ml # Voids 4 1 # Bowel Movements 1 Laboratory Tests Test 09/14/16 08:10 White Blood Count 21.3 K/UL (4.8-10.8) H Red Blood Count 6.03 M/UL (4.20-5.40) H Hemoglobin 16.3 G/DL (12.0-16.0) H Hematocrit 52.3 % (37.0-47.0) H Mean Corpuscular Volume 87 FL (80-99) Mean Corpuscular Hemoglobin 27.1 PG (27.0-31.0) Mean Corpuscular Hemoglobin Concent 31.2 G/DL (32.0-36.0) L Red Cell Distribution Width 14.3 % (11.6-14.8) Platelet Count 182 K/UL (150-450) Mean Platelet Volume 9.8 FL (6.5-10.1) Neutrophils (%) (Auto) % (45.0-75.0) Lymphocytes (%) (Auto) % (20.0-45.0) Monocytes (%) (Auto) % (1.0-10.0) Eosinophils (%) (Auto) % (0.0-3.0) Basophils (%) (Auto) % (0.0-2.0) Differential Total Cells Counted 100 Neutrophils % (Manual) 97 % (45-75) H Lymphocytes % (Manual) 1 % (20-45) L Monocytes % (Manual) 2 % (1-10) Eosinophils % (Manual) 0 % (0-3) Basophils % (Manual) 0 % (0-2) Band Neutrophils 0 % (0-8) Platelet Estimate Adequate Platelet Morphology Normal Hypochromasia Anisocytosis 1+ Prothrombin Time 11.1 SEC (9.30-11.50) Prothromb Time International Ratio 1.1 (0.9-1.1) Sodium Level 140 mEQ/L (135-145) Potassium Level 3.2 mEQ/L (3.4-4.9) L Chloride Level 98 mEQ/L (98-107) Carbon Dioxide Level 25 mEQ/L (20-30) Anion Gap 17 (5-15) H Blood Urea Nitrogen 32 mg/dL (7-23) H Creatinine 1.4 mg/dL (0.5-0.9) H Estimat Glomerular Filtration Rate 47.1 mL/min (>60) Glucose Level 282 mg/dL (74-106) #H Calcium Level 9.4 mg/dL (8.6-10.2) Microbiology Date/Time Source Procedure Growth Status 09/13/16 03:30 Sputum Gram Stain - Final Resulted 09/13/16 03:30 Sputum Sputum Culture - Preliminary NO GROWTH Resulted DAWNA GURROLA Sep 14, 2016 19:47
[2016-09-14 20:00] VITALS: BP 126/82
[2016-09-14] MEDS: Solu-MEDROL 125mg Inj IV SCH (20:32)
[2016-09-14] MEDS: Enoxaparin 80mg Inj SUBQ SCH (22:37)
[2016-09-14 22:55] LABS: APPEARANCE,URINE CLEAR; KETONES,URINE NEGATIVE (NEGATIVE); LEUKOCYTE ESTERASE ,URINE NEGATIVE (NEGATIVE); NITRITE,URINE NEGATIVE (NEGATIVE); PH,URINE 5 (4.5-8.0); PROTEIN,URINE NEGATIVE (NEGATIVE); UROBILINOGEN,URINE NORMAL MG/DL (0.0-1.0)
[2016-09-14 23:09] LABS: BACTERIA,URINE FEW /HPF; RBC,URINE 0-2 /HPF (0 - 2); SQUAMOUS EPITHELIAL CELL,UR FEW /LPF (NONE/OCC); WBC,URINE 0-2 /HPF (0 - 2)
[2016-09-15] VITALS: BP 128/95
[2016-09-15 04:00] VITALS: BP 142/93
[2016-09-15] MEDS: HydrALAZINE 50mg tab ORAL SCH ×3 (05:21→22:00)
[2016-09-15 08:00] VITALS: BP 123/72
[2016-09-15 08:25] LABS: MEAN CORPUSCULAR HEMOGLOBIN 26.8 PG (27.0-31.0); MEAN CORPUSCULAR HGB CONC 31.1 G/DL (32.0-36.0); MEAN CORPUSCULAR VOLUME 86 FL (80-99); MEAN PLATELET VOLUME 9.4 FL (6.5-10.1); PLATELET COUNT 173 K/UL (150-450); RED BLOOD COUNT 5.91 M/UL (4.20-5.40); RED CELL DISTRIBUTION WIDTH 14.1 % (11.6-14.8); WHITE BLOOD COUNT 18.7 K/UL (4.8-10.8)
[2016-09-15 08:36] LABS: INR 1.2 (0.9-1.1); PROTHROMBIN TIME 12.6 SEC (9.30-11.50)
[2016-09-15 08:42] LABS: ALANINE AMINOTRANSFERASE 12 U/L (3-33); ALBUMIN/GLOBULIN RATIO 1.3 (1.0-2.7); ANION GAP 13 (5-15); ASPARTATE AMINO TRANSFERASE 8 U/L (5-40); CARBON DIOXIDE 26 mEQ/L (20-30); CHLORIDE 101 mEQ/L (98-107); CHOLESTEROL 165 mg/dL (< 200); CHOLESTEROL/HDL RATIO 3.2 (3.3-4.4); CREATININE 1.4 mg/dL (0.5-0.9); CRP QUANT < 0.3 mg/dL (< 0.5); GLOMERULAR FILTRATION RATE 47.1 mL/min (>60); HEMOLYSIS 8; LDL CHOLESTEROL (CALC.) 90 mg/dL (60-99); MAGNESIUM 1.9 mg/dL (1.7-2.5); PHOSPHORUS 3.7 mg/dL (2.5-4.8); POTASSIUM 3.7 mEQ/L (3.4-4.9); SODIUM 140 mEQ/L (135-145); URIC ACID 6.9 mg/dL (3.0-7.5)
[2016-09-15] MEDS: Lisinopril 10mg tab ORAL SCH ×2 (08:48→18:07)
[2016-09-15] MEDS: Solu-MEDROL 125mg Inj IV SCH (08:49)
[2016-09-15] MEDS: Theophylline ER 100mg ORAL SCH ×2 (08:49→22:12)
[2016-09-15] MEDS: Aspirin EC 81mg tab ORAL SCH (08:49)
[2016-09-15] MEDS: Carvedilol 12.5mg tab ORAL SCH ×2 (08:49→22:12)
[2016-09-15] MEDS: Enoxaparin 80mg Inj SUBQ SCH ×2 (08:52→22:13)
[2016-09-15] MEDS ORDERED: Lisinopril 10mg tab ORAL SCH (09:00)
[2016-09-15 09:01] LABS: THYROID STIMULATING HORMONE 0.307 uIU/mL (0.300-4.500)
[2016-09-15 09:26] LABS: HEMOGLOBIN A1C 5.7 % (< 6.0)
[2016-09-15 09:27] LABS: BAND NEUTROPHILS % (MANUAL) 0 % (0-8); BASOPHILS % (MANUAL) 0 % (0-2); EOSINOPHILS % (MANUAL) 0 % (0-3); LYMPHOCYTES % (MANUAL) 2 % (20-45); NEUTROPHILS % (MANUAL) 96 % (45-75); PLATELET ESTIMATE ADEQUATE; PLATELET MORPHOLOGY NORMAL; TOTAL CELLS COUNTED 100
--- NOTE | 2016-09-15 09:38 | Infectious Diseases Prog Note ---
Assessment/Plan Assessment/Plan ASSESSMENT: 56 y/o female with: // COPD exacerbation - improved, SCx NRF - CXR 09/14: No acute findings - negative: influenza // Leukocytosis - improved, afebrile ( on steroids ) // SHANKAR - stable // A-fib with RVR // Severe MR // UDS(+) cocaine // Sulfa allergy // Full Code PLAN: - continue levaquin d# 2 / 5 - taper steroids per pulm - f/u cultures - monitor CBC, temperatures - monitor BMP - monitor INR - monitor CXR Subjective Allergies: Coded Allergies: SULFA (SULFONAMIDE ANTIBIOTICS) (Unverified Allergy, Unknown, 03/29/14) Subjective remains afebrile. breathing improved Objective Vital Signs Last 24 Hour Vital Signs Date Time Temp Pulse Resp B/P Pulse Ox O2 Delivery O2 Flow Rate FiO2 09/15/16 08:49 70 123/72 09/15/16 08:48 123/72 09/15/16 08:00 97.5 70 18 123/72 97 Room Air 09/15/16 05:22 76 132/84 09/15/16 05:21 132/84 09/15/16 04:00 97.3 80 18 142/93 97 Room Air 09/15/16 00:00 96.8 67 18 128/95 97 Room Air 09/14/16 22:35 84 130/90 09/14/16 22:00 130/90 09/14/16 20:31 84 130/90 09/14/16 20:00 97.6 76 16 126/82 100 Room Air 09/14/16 19:30 84 20 Room Air 21 09/14/16 16:59 130/90 09/14/16 16:59 130/90 09/14/16 16:59 83 130/90 09/14/16 16:00 97.5 83 18 130/90 98 Room Air 09/14/16 13:38 135/77 09/14/16 13:38 66 135/77 09/14/16 12:00 97.6 66 21 135/77 97 Room Air 09/14/16 10:55 75 125/88 09/14/16 10:54 125/88 Height (Feet): 5 Height (Inches): 7.00 Weight (Pounds): 150 General Appearance: no acute distress Respiratory/Chest: no respiratory distress Cardiovascular: normal rate, regular rhythm Abdomen: normal bowel sounds, soft, non tender, non distended Microbiology Date/Time Source Procedure Growth Status 09/13/16 03:30 Sputum Gram Stain - Final Resulted 09/13/16 03:30 Sputum Sputum Culture - Preliminary NORMAL UPPER RESPIRATORY PRO AT 24 ... Resulted Laboratory Tests Test 09/14/16 21:00 09/15/16 08:05 Urine Color Pale yellow Urine Appearance Clear Urine pH 5 (4.5-8.0) Urine Specific [place] 1.015 (1.005-1.035) Urine Protein Negative (NEGATIVE) Urine Glucose (UA) Negative (NEGATIVE) Urine Ketones Negative (NEGATIVE) Urine Occult Blood Negative (NEGATIVE) Urine Nitrite Negative (NEGATIVE) Urine Bilirubin Negative (NEGATIVE) Urine Urobilinogen Normal MG/DL (0.0-1.0) Urine Leukocyte Esterase Negative (NEGATIVE) Urine RBC 0-2 /HPF (0 - 2) Urine WBC 0-2 /HPF (0 - 2) Urine Squamous Epithelial Cells Few /LPF (NONE/OCC) Urine Bacteria Few /HPF (NONE) Urine Random Sodium 38 mmol/L White Blood Count 18.7 K/UL (4.8-10.8) H Red Blood Count 5.91 M/UL (4.20-5.40) H Hemoglobin 15.9 G/DL (12.0-16.0) Hematocrit 50.9 % (37.0-47.0) H Mean Corpuscular Volume 86 FL (80-99) Mean Corpuscular Hemoglobin 26.8 PG (27.0-31.0) L Mean Corpuscular Hemoglobin Concent 31.1 G/DL (32.0-36.0) L Red Cell Distribution Width 14.1 % (11.6-14.8) Platelet Count 173 K/UL (150-450) Mean Platelet Volume 9.4 FL (6.5-10.1) Neutrophils (%) (Auto) % (45.0-75.0) Lymphocytes (%) (Auto) % (20.0-45.0) Monocytes (%) (Auto) % (1.0-10.0) Eosinophils (%) (Auto) % (0.0-3.0) Basophils (%) (Auto) % (0.0-2.0) Differential Total Cells Counted 100 Neutrophils % (Manual) 96 % (45-75) H Lymphocytes % (Manual) 2 % (20-45) L Monocytes % (Manual) 2 % (1-10) Eosinophils % (Manual) 0 % (0-3) Basophils % (Manual) 0 % (0-2) Band Neutrophils 0 % (0-8) Platelet Estimate Adequate Platelet Morphology Normal Red Blood Cell Morphology Normal Prothrombin Time 12.6 SEC (9.30-11.50) H Prothromb Time International Ratio 1.2 (0.9-1.1) H Sodium Level 140 mEQ/L (135-145) Potassium Level 3.7 mEQ/L (3.4-4.9) Chloride Level 101 mEQ/L (98-107) Carbon Dioxide Level 26 mEQ/L (20-30) Anion Gap 13 (5-15) Blood Urea Nitrogen 34 mg/dL (7-23) H Creatinine 1.4 mg/dL (0.5-0.9) H Estimat Glomerular Filtration Rate 47.1 mL/min (>60) Glucose Level 211 mg/dL (74-106) H Hemoglobin A1c 5.7 % (< 6.0) Uric Acid 6.9 mg/dL (3.0-7.5) Calcium Level 9.0 mg/dL (8.6-10.2) Phosphorus Level 3.7 mg/dL (2.5-4.8) Magnesium Level 1.9 mg/dL (1.7-2.5) Total Bilirubin 0.2 mg/dL (0.0-1.2) Gamma Glutamyl Transpeptidase 23 U/L (5-36) Aspartate Amino Transf (AST/SGOT) 8 U/L (5-40) Alanine Aminotransferase (ALT/SGPT) 12 U/L (3-33) Alkaline Phosphatase 82 U/L (35-104) Total Creatine Kinase 13 U/L (26-140) L C-Reactive Protein, Quantitative < 0.3 mg/dL (< 0.5) Pro-B-Type Natriuretic Peptide 400 pg/mL (0-125) H Total Protein 6.0 g/dL (6.6-8.7) L Albumin 3.4 g/dL (3.5-5.2) L Globulin 2.6 g/dL Albumin/Globulin Ratio 1.3 (1.0-2.7) Triglycerides Level 114 mg/dL (< 150) Cholesterol Level 165 mg/dL (< 200) LDL Cholesterol 90 mg/dL (60-99) HDL Cholesterol 52 mg/dL (> 60) Cholesterol/HDL Ratio 3.2 (3.3-4.4) L Thyroid Stimulating Hormone (TSH) 0.307 uIU/mL (0.300-4.500) Current Medications Medications (Trade) Dose Ordered Sig/Ruben Route PRN Reason Start Time Stop Time Status Last Admin Dose Admin Albuterol/ Ipratropium (DuoNeb 0.5-3(2.5)mg/3ml) 3 ml Q4H PRN HHN dyspnea 09/14/16 04:45 09/19/16 04:44 Aspirin (Ecotrin) 81 mg DAILY ORAL 09/14/16 09:00 10/14/16 08:59 09/15/16 08:49 Carvedilol (Coreg) 25 mg Q12HR ORAL 09/14/16 21:00 10/14/16 20:59 09/15/16 08:49 Clonidine HCl (Catapres) 0.1 mg Q4H PRN ORAL SBP>160 09/14/16 04:30 10/14/16 04:29 Dextrose (Dextrose 50%) STAT PRN IV Hypoglycemia 09/14/16 12:45 10/14/16 12:44 Diltiazem HCl (Cardizem) 60 mg EVERY 8 HOURS ORAL 09/14/16 06:00 10/14/16 05:59 09/15/16 05:22 Enoxaparin Sodium (Lovenox) 70 mg EVERY 12 HOURS SUBQ 09/14/16 21:00 10/14/16 20:59 09/15/16 08:52 Hydralazine HCl (Apresoline) 50 mg EVERY 8 HOURS ORAL 09/14/16 22:00 10/14/16 21:59 09/15/16 05:21 Levofloxacin (Levaquin 750mg/ D5W) 150 ml @ 100 mls/hr Q24H IVPB 09/14/16 09:00 09/21/16 08:59 09/15/16 08:49 Lisinopril (Zestril) 10 mg BID ORAL 09/15/16 09:00 10/15/16 08:59 09/15/16 08:48 Lorazepam (Ativan 2mg/ml 1ml) 0.5 mg Q4H PRN IV For Anxiety 09/14/16 04:45 09/21/16 04:44 Methylprednisolone Sodium Succinate (Solu-MEDROL) 40 mg EVERY 12 HOURS IV 09/14/16 21:00 10/14/16 20:59 09/15/16 08:49 Morphine Sulfate (Morphine Sulfate) 2 mg Q4H PRN IVP severe pain 7-10 09/14/16 04:45 09/21/16 04:44 Nicotine (Nicoderm) 1 patch Q24H TDERMAL 09/14/16 16:00 10/14/16 15:59 09/14/16 17:00 Nitroglycerin (Ntg) 0.4 mg Q5M X 3 DOSES PRN SL Prn Chest Pain 09/14/16 01:30 10/14/16 01:29 Ondansetron HCl (Zofran) 4 mg Q6H PRN IVP Nausea & Vomiting 09/14/16 06:45 10/14/16 06:44 Potassium Chloride (K-Dur) 20 meq TWICE A DAY ORAL 09/14/16 18:00 09/15/16 17:59 09/15/16 08:48 Promethazine HCl/ Codeine (Phenergan with Codeine) 5 ml Q6H PRN ORAL cough 09/14/16 06:45 10/14/16 06:44 Ranitidine HCl (Zantac) 150 mg DAILY ORAL 09/14/16 18:00 10/14/16 17:59 09/15/16 08:49 Temazepam (Restoril) 15 mg HSPRN PRN ORAL Insomnia 09/14/16 12:45 09/21/16 12:44 Theophylline (Vasiliy-Dur) 100 mg EVERY 12 HOURS ORAL 09/14/16 09:00 10/14/16 08:59 09/15/16 08:49 Warfarin Sodium 1 ea 1 ea DAILY PRN MISC Per rx protocol 09/14/16 09:00 10/14/16 08:59 ADINA FORDE Sep 15, 2016 09:38
[2016-09-15 12:00] VITALS: BP 141/77
--- NOTE | 2016-09-15 13:17 | Cardiology Progress Note ---
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 has apoint this to reevaluate for anticoagulation couamrosemary teaching d/w pty kimi need for close monitoring labs on couamdin daily and evelutlly weekly for now i explaiend keyonalure to properly be followed maylead to his or los level adn contribute to bleeign or not protect form stroke she indicated understanding Subjective Cardiovascular: Denies: chest pain Respiratory: Denies: shortness of breath Gastrointestinal/Abdominal: Denies: abdomen distended Genitourinary: Denies: burning Objective Last 24 Hour Vital Signs Date Time Temp Pulse Resp B/P Pulse Ox O2 Delivery O2 Flow Rate FiO2 09/15/16 08:49 70 123/72 09/15/16 08:48 123/72 09/15/16 08:00 97.5 70 18 123/72 97 Room Air 09/15/16 05:22 76 132/84 09/15/16 05:21 132/84 09/15/16 04:00 97.3 80 18 142/93 97 Room Air 09/15/16 00:00 96.8 67 18 128/95 97 Room Air 09/14/16 22:35 84 130/90 09/14/16 22:00 130/90 09/14/16 20:31 84 130/90 09/14/16 20:00 97.6 76 16 126/82 100 Room Air 09/14/16 19:30 84 20 Room Air 21 09/14/16 16:59 130/90 09/14/16 16:59 130/90 09/14/16 16:59 83 130/90 09/14/16 16:00 97.5 83 18 130/90 98 Room Air 09/14/16 13:38 135/77 09/14/16 13:38 66 135/77 General Appearance: no apparent distress Neck: no JVD Cardiovascular: irregularly irregular Respiratory/Chest: lungs clear, normal breath sounds Abdomen: normal bowel sounds, non tender, soft Extremities: no swelling Intake and Output 09/14/16 09/15/16 19:00 07:00 Intake Total 480 ml 180 ml Balance 480 ml 180 ml Intake Oral 480 ml 180 ml # Voids 4 Laboratory Tests Test 09/14/16 21:00 09/15/16 08:05 Urine Color Pale yellow Urine Appearance Clear Urine pH 5 (4.5-8.0) Urine Specific [place] 1.015 (1.005-1.035) Urine Protein Negative (NEGATIVE) Urine Glucose (UA) Negative (NEGATIVE) Urine Ketones Negative (NEGATIVE) Urine Occult Blood Negative (NEGATIVE) Urine Nitrite Negative (NEGATIVE) Urine Bilirubin Negative (NEGATIVE) Urine Urobilinogen Normal MG/DL (0.0-1.0) Urine Leukocyte Esterase Negative (NEGATIVE) Urine RBC 0-2 /HPF (0 - 2) Urine WBC 0-2 /HPF (0 - 2) Urine Squamous Epithelial Cells Few /LPF (NONE/OCC) Urine Bacteria Few /HPF (NONE) Urine Random Sodium 38 mmol/L White Blood Count 18.7 K/UL (4.8-10.8) H Red Blood Count 5.91 M/UL (4.20-5.40) H Hemoglobin 15.9 G/DL (12.0-16.0) Hematocrit 50.9 % (37.0-47.0) H Mean Corpuscular Volume 86 FL (80-99) Mean Corpuscular Hemoglobin 26.8 PG (27.0-31.0) L Mean Corpuscular Hemoglobin Concent 31.1 G/DL (32.0-36.0) L Red Cell Distribution Width 14.1 % (11.6-14.8) Platelet Count 173 K/UL (150-450) Mean Platelet Volume 9.4 FL (6.5-10.1) Neutrophils (%) (Auto) % (45.0-75.0) Lymphocytes (%) (Auto) % (20.0-45.0) Monocytes (%) (Auto) % (1.0-10.0) Eosinophils (%) (Auto) % (0.0-3.0) Basophils (%) (Auto) % (0.0-2.0) Differential Total Cells Counted 100 Neutrophils % (Manual) 96 % (45-75) H Lymphocytes % (Manual) 2 % (20-45) L Monocytes % (Manual) 2 % (1-10) Eosinophils % (Manual) 0 % (0-3) Basophils % (Manual) 0 % (0-2) Band Neutrophils 0 % (0-8) Platelet Estimate Adequate Platelet Morphology Normal Red Blood Cell Morphology Normal Prothrombin Time 12.6 SEC (9.30-11.50) H Prothromb Time International Ratio 1.2 (0.9-1.1) H Sodium Level 140 mEQ/L (135-145) Potassium Level 3.7 mEQ/L (3.4-4.9) Chloride Level 101 mEQ/L (98-107) Carbon Dioxide Level 26 mEQ/L (20-30) Anion Gap 13 (5-15) Blood Urea Nitrogen 34 mg/dL (7-23) H Creatinine 1.4 mg/dL (0.5-0.9) H Estimat Glomerular Filtration Rate 47.1 mL/min (>60) Glucose Level 211 mg/dL (74-106) H Hemoglobin A1c 5.7 % (< 6.0) Uric Acid 6.9 mg/dL (3.0-7.5) Calcium Level 9.0 mg/dL (8.6-10.2) Phosphorus Level 3.7 mg/dL (2.5-4.8) Magnesium Level 1.9 mg/dL (1.7-2.5) Total Bilirubin 0.2 mg/dL (0.0-1.2) Gamma Glutamyl Transpeptidase 23 U/L (5-36) Aspartate Amino Transf (AST/SGOT) 8 U/L (5-40) Alanine Aminotransferase (ALT/SGPT) 12 U/L (3-33) Alkaline Phosphatase 82 U/L (35-104) Total Creatine Kinase 13 U/L (26-140) L C-Reactive Protein, Quantitative < 0.3 mg/dL (< 0.5) Pro-B-Type Natriuretic Peptide 400 pg/mL (0-125) H Total Protein 6.0 g/dL (6.6-8.7) L Albumin 3.4 g/dL (3.5-5.2) L Globulin 2.6 g/dL Albumin/Globulin Ratio 1.3 (1.0-2.7) Triglycerides Level 114 mg/dL (< 150) Cholesterol Level 165 mg/dL (< 200) LDL Cholesterol 90 mg/dL (60-99) HDL Cholesterol 52 mg/dL (> 60) Cholesterol/HDL Ratio 3.2 (3.3-4.4) L Thyroid Stimulating Hormone (TSH) 0.307 uIU/mL (0.300-4.500) Microbiology Date/Time Source Procedure Growth Status 09/13/16 03:30 Sputum Gram Stain - Final Resulted 09/13/16 03:30 Sputum Sputum Culture - Preliminary NORMAL UPPER RESPIRATORY PRO AT 24 ... Resulted DAWNA GURROLA Sep 15, 2016 13:17
[2016-09-15 16:00] VITALS: BP 132/77
[2016-09-15] MEDS ORDERED: Warfarin Sodium 3mg ORAL ONE (17:00)
--- NOTE | 2016-09-15 17:05 | General Progress Note ---
Assessment/Plan Status: stable Assessment/Plan status: Rising Scr likely due to Lasix - now 1.4 stable HTN OOC - controlled. Arrythmia Drug Abuse COPD Plan: Adjust BP meds- Off Lasix Taper steroids Monitor renal parameters- K supplement Gastric protection Per orders- Subjective ROS Limited/Unobtainable: No Constitutional: Reports: malaise Allergies: Coded Allergies: SULFA (SULFONAMIDE ANTIBIOTICS) (Unverified Allergy, Unknown, 03/29/14) Objective Last 24 Hour Vital Signs Date Time Temp Pulse Resp B/P Pulse Ox O2 Delivery O2 Flow Rate FiO2 09/15/16 16:00 97.9 91 20 132/77 98 Room Air 09/15/16 14:39 141/77 09/15/16 14:39 75 141/77 09/15/16 12:00 97.7 75 20 141/77 99 Room Air 09/15/16 08:49 70 123/72 09/15/16 08:48 123/72 09/15/16 08:00 97.5 70 18 123/72 97 Room Air 09/15/16 05:22 76 132/84 09/15/16 05:21 132/84 09/15/16 04:00 97.3 80 18 142/93 97 Room Air 09/15/16 00:00 96.8 67 18 128/95 97 Room Air 09/14/16 22:35 84 130/90 09/14/16 22:00 130/90 09/14/16 20:31 84 130/90 09/14/16 20:00 97.6 76 16 126/82 100 Room Air 09/14/16 19:30 84 20 Room Air 21 Intake and Output 09/14/16 09/15/16 19:00 07:00 Intake Total 480 ml 180 ml Balance 480 ml 180 ml Intake Oral 480 ml 180 ml # Voids 4 Laboratory Tests 09/14/16 21:00: Urine Color Pale yellow, Urine Appearance Clear, Urine pH 5, Urine Specific [place] 1.015, Urine Protein Negative, Urine Glucose (UA) Negative, Urine Ketones Negative, Urine Occult Blood Negative, Urine Nitrite Negative, Urine Bilirubin Negative, Urine Urobilinogen Normal, Urine Leukocyte Esterase Negative , Urine RBC 0-2, Urine WBC 0-2, Urine Squamous Epithelial Cells Few, Urine Bacteria Few, Urine Random Sodium 38 09/15/16 08:05: White Blood Count 18.7H, Red Blood Count 5.91H, Hemoglobin 15.9, Hematocrit 50.9H, Mean Corpuscular Volume 86, Mean Corpuscular Hemoglobin 26.8L, Mean Corpuscular Hemoglobin Concent 31.1L, Red Cell Distribution Width 14.1, Platelet Count 173, Mean Platelet Volume 9.4, Neutrophils (%) (Auto) , Lymphocytes (%) (Auto) , Monocytes (%) (Auto) , Eosinophils (%) (Auto) , Basophils (%) (Auto) , Differential Total Cells Counted 100, Neutrophils % ( Manual) 96H, Lymphocytes % (Manual) 2L, Monocytes % (Manual) 2, Eosinophils % ( Manual) 0, Basophils % (Manual) 0, Band Neutrophils 0, Platelet Estimate Adequate, Platelet Morphology Normal, Red Blood Cell Morphology Normal, Prothrombin Time 12.6H, Prothromb Time International Ratio 1.2H, Sodium Level 140, Potassium Level 3.7, Chloride Level 101, Carbon Dioxide Level 26, Anion Gap 13, Blood Urea Nitrogen 34H, Creatinine 1.4H, Estimat Glomerular Filtration Rate 47.1, Glucose Level 211H, Hemoglobin A1c 5.7, Uric Acid 6.9, Calcium Level 9.0, Phosphorus Level 3.7, Magnesium Level 1.9, Total Bilirubin 0.2, Gamma Glutamyl Transpeptidase 23, Aspartate Amino Transf (AST/SGOT) 8, Alanine Aminotransferase (ALT/SGPT) 12, Alkaline Phosphatase 82, Total Creatine Kinase 13L, C-Reactive Protein, Quantitative < 0.3, Pro-B-Type Natriuretic Peptide 400H , Total Protein 6.0L, Albumin 3.4L, Globulin 2.6, Albumin/Globulin Ratio 1.3, Triglycerides Level 114, Cholesterol Level 165, LDL Cholesterol 90, HDL Cholesterol 52, Cholesterol/HDL Ratio 3.2L, Thyroid Stimulating Hormone (TSH) 0.307 Height (Feet): 5 Height (Inches): 7.00 Weight (Pounds): 150 General Appearance: no apparent distress Cardiovascular: arrhythmia Respiratory/Chest: other - no wheez Abdomen: soft EZEKIEL BRUNO Sep 15, 2016 17:05
[2016-09-15 19:00] VITALS: BP 125/80
[2016-09-15] MEDS ORDERED: Solu-MEDROL 40mg Inj IVP SCH (21:00)
--- NOTE | 2016-09-15 23:30 | Pulmonology Progress Note ---
Assessment/Plan Problems: (1) COPD (chronic obstructive pulmonary disease) (2) Leukocytosis (3) Afib (4) HTN (hypertension) (5) Dyspnea Assessment/Plan improving taper steorids check inr dc when INR therapeutic Subjective ROS Limited/Unobtainable: No Constitutional: Reports: no symptoms HEENT: Repors: no symptoms Respiratory: Reports: no symptoms Cardiovascular: Reports: no symptoms Allergies: Coded Allergies: SULFA (SULFONAMIDE ANTIBIOTICS) (Unverified Allergy, Unknown, 03/29/14) Objective Last 24 Hour Vital Signs Date Time Temp Pulse Resp B/P Pulse Ox O2 Delivery O2 Flow Rate FiO2 09/15/16 22:19 81 125/80 09/15/16 22:12 81 125/80 09/15/16 22:00 125/80 09/15/16 19:12 81 20 Room Air 21 09/15/16 19:00 98.0 88 20 125/80 96 Room Air 09/15/16 18:07 132/77 09/15/16 16:00 97.9 91 20 132/77 98 Room Air 09/15/16 14:39 141/77 09/15/16 14:39 75 141/77 09/15/16 12:00 97.7 75 20 141/77 99 Room Air 09/15/16 08:49 70 123/72 09/15/16 08:48 123/72 09/15/16 08:00 97.5 70 18 123/72 97 Room Air 09/15/16 05:22 76 132/84 09/15/16 05:21 132/84 09/15/16 04:00 97.3 80 18 142/93 97 Room Air 09/15/16 00:00 96.8 67 18 128/95 97 Room Air Intake and Output 09/14/16 09/15/16 19:00 07:00 Intake Total 480 ml 180 ml Balance 480 ml 180 ml Intake Oral 480 ml 180 ml # Voids 4 General Appearance: WD/WN HEENT: normocephalic, atraumatic Respiratory/Chest: chest wall non-tender, lungs clear Cardiovascular: normal peripheral pulses Abdomen: normal bowel sounds, no organomegaly Extremities: no cyanosis, no clubbing Skin: no lesions Neurologic/Psychiatric: 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 Resulted Laboratory Tests 09/15/16 08:05: White Blood Count 18.7H, Red Blood Count 5.91H, Hemoglobin 15.9, Hematocrit 50.9H, Mean Corpuscular Volume 86, Mean Corpuscular Hemoglobin 26.8L, Mean Corpuscular Hemoglobin Concent 31.1L, Red Cell Distribution Width 14.1, Platelet Count 173, Mean Platelet Volume 9.4, Neutrophils (%) (Auto) , Lymphocytes (%) (Auto) , Monocytes (%) (Auto) , Eosinophils (%) (Auto) , Basophils (%) (Auto) , Differential Total Cells Counted 100, Neutrophils % ( Manual) 96H, Lymphocytes % (Manual) 2L, Monocytes % (Manual) 2, Eosinophils % ( Manual) 0, Basophils % (Manual) 0, Band Neutrophils 0, Platelet Estimate Adequate, Platelet Morphology Normal, Red Blood Cell Morphology Normal, Prothrombin Time 12.6H, Prothromb Time International Ratio 1.2H, Sodium Level 140, Potassium Level 3.7, Chloride Level 101, Carbon Dioxide Level 26, Anion Gap 13, Blood Urea Nitrogen 34H, Creatinine 1.4H, Estimat Glomerular Filtration Rate 47.1, Glucose Level 211H, Hemoglobin A1c 5.7, Uric Acid 6.9, Calcium Level 9.0, Phosphorus Level 3.7, Magnesium Level 1.9, Total Bilirubin 0.2, Gamma Glutamyl Transpeptidase 23, Aspartate Amino Transf (AST/SGOT) 8, Alanine Aminotransferase (ALT/SGPT) 12, Alkaline Phosphatase 82, Total Creatine Kinase 13L, C-Reactive Protein, Quantitative < 0.3, Pro-B-Type Natriuretic Peptide 400H , Total Protein 6.0L, Albumin 3.4L, Globulin 2.6, Albumin/Globulin Ratio 1.3, Triglycerides Level 114, Cholesterol Level 165, LDL Cholesterol 90, HDL Cholesterol 52, Cholesterol/HDL Ratio 3.2L, Thyroid Stimulating Hormone (TSH) 0.307 Current Medications Medications (Trade) Dose Ordered Sig/Ruben Route PRN Reason Start Time Stop Time Status Last Admin Dose Admin Albuterol/ Ipratropium (DuoNeb 0.5-3(2.5)mg/3ml) 3 ml Q4H PRN HHN dyspnea 09/14/16 04:45 09/19/16 04:44 Aspirin (Ecotrin) 81 mg DAILY ORAL 09/14/16 09:00 10/14/16 08:59 09/15/16 08:49 Carvedilol (Coreg) 25 mg Q12HR ORAL 09/14/16 21:00 10/14/16 20:59 09/15/16 22:12 Clonidine HCl (Catapres) 0.1 mg Q4H PRN ORAL SBP>160 09/14/16 04:30 10/14/16 04:29 Dextrose (Dextrose 50%) STAT PRN IV Hypoglycemia 09/14/16 12:45 10/14/16 12:44 Diltiazem HCl (Cardizem) 60 mg EVERY 8 HOURS ORAL 09/14/16 06:00 10/14/16 05:59 09/15/16 22:19 Enoxaparin Sodium (Lovenox) 70 mg EVERY 12 HOURS SUBQ 09/14/16 21:00 10/14/16 20:59 09/15/16 22:13 Hydralazine HCl (Apresoline) 50 mg EVERY 8 HOURS ORAL 09/14/16 22:00 10/14/16 21:59 09/15/16 14:39 Levofloxacin (Levaquin 750mg/ D5W) 150 ml @ 100 mls/hr Q24H IVPB 09/14/16 09:00 09/21/16 08:59 09/15/16 08:49 Lisinopril (Zestril) 10 mg BID ORAL 09/15/16 09:00 10/15/16 08:59 09/15/16 18:07 Lorazepam (Ativan 2mg/ml 1ml) 0.5 mg Q4H PRN IV For Anxiety 09/14/16 04:45 09/21/16 04:44 Morphine Sulfate (Morphine Sulfate) 2 mg Q4H PRN IVP severe pain 7-10 09/14/16 04:45 09/21/16 04:44 Nicotine (Nicoderm) 1 patch Q24H TDERMAL 09/14/16 16:00 10/14/16 15:59 09/15/16 18:06 Nitroglycerin (Ntg) 0.4 mg Q5M X 3 DOSES PRN SL Prn Chest Pain 09/14/16 01:30 10/14/16 01:29 Ondansetron HCl (Zofran) 4 mg Q6H PRN IVP Nausea & Vomiting 09/14/16 06:45 10/14/16 06:44 Promethazine HCl/ Codeine (Phenergan with Codeine) 5 ml Q6H PRN ORAL cough 09/14/16 06:45 10/14/16 06:44 Ranitidine HCl (Zantac) 150 mg DAILY ORAL 09/14/16 18:00 10/14/16 17:59 09/15/16 08:49 Temazepam (Restoril) 15 mg HSPRN PRN ORAL Insomnia 09/14/16 12:45 09/21/16 12:44 Theophylline (Vasiliy-Dur) 100 mg EVERY 12 HOURS ORAL 09/14/16 09:00 10/14/16 08:59 09/15/16 22:12 Warfarin Sodium 1 ea 1 ea DAILY PRN MISC Per rx protocol 09/14/16 09:00 10/14/16 08:59 CANDIDO MARQUES Sep 15, 2016 23:30
[2016-09-16] VITALS: BP 141/103
[2016-09-16 04:00] VITALS: BP 138/94
[2016-09-16] MEDS: HydrALAZINE 50mg tab ORAL SCH ×3 (06:31→21:11)
[2016-09-16 07:49] LABS: INR 1.6 (0.9-1.1); PROTHROMBIN TIME 16.6 SEC (9.30-11.50)
[2016-09-16 08:09] VITALS: BP 148/108
[2016-09-16] MEDS: Enoxaparin 80mg Inj SUBQ SCH ×2 (08:53→21:13)
[2016-09-16] MEDS: Lisinopril 10mg tab ORAL SCH ×2 (08:56→17:02)
[2016-09-16] MEDS: Theophylline ER 100mg ORAL SCH ×2 (08:57→21:12)
[2016-09-16] MEDS: Aspirin EC 81mg tab ORAL SCH (08:57)
[2016-09-16] MEDS: Carvedilol 12.5mg tab ORAL SCH ×2 (08:57→21:12)
[2016-09-16 11:43] VITALS: BP 132/78
--- NOTE | 2016-09-16 14:10 | General Progress Note ---
Assessment/Plan Status: stable Assessment/Plan status: Rising Scr likely due to Lasix - now 1.4 stable HTN OOC - controlled. Arrythmia Drug Abuse COPD Plan: no labs today Adjust BP meds- increase cardiazem Off Lasix Taper steroids Monitor renal parameters- K supplement as needed Gastric protection Per orders- Subjective ROS Limited/Unobtainable: No Constitutional: Reports: malaise Allergies: Coded Allergies: SULFA (SULFONAMIDE ANTIBIOTICS) (Unverified Allergy, Unknown, 03/29/14) Objective Last 24 Hour Vital Signs Date Time Temp Pulse Resp B/P Pulse Ox O2 Delivery O2 Flow Rate FiO2 09/16/16 11:43 97.5 75 19 132/78 95 Room Air 09/16/16 08:57 84 148/108 09/16/16 08:56 148/108 09/16/16 08:09 97.6 84 19 148/108 96 Room Air 09/16/16 07:44 84 18 Room Air 21 09/16/16 06:31 138/94 09/16/16 06:31 86 138/94 09/16/16 04:00 98.6 86 18 138/94 97 Room Air 09/16/16 00:00 98.1 89 18 141/103 98 Room Air 09/15/16 22:19 81 125/80 09/15/16 22:12 81 125/80 09/15/16 22:00 125/80 09/15/16 19:12 81 20 Room Air 21 09/15/16 19:00 98.0 88 20 125/80 96 Room Air 09/15/16 18:07 132/77 09/15/16 16:00 97.9 91 20 132/77 98 Room Air 09/15/16 14:39 141/77 09/15/16 14:39 75 141/77 Intake and Output 09/15/16 09/16/16 19:00 07:00 Intake Total 550 ml 240 ml Output Total 1000 ml Balance -450 ml 240 ml Intake Oral 550 ml 240 ml Output Urine Total 1000 ml # Voids 7 Laboratory Tests 09/16/16 05:10: Prothrombin Time 16.6H, Prothromb Time International Ratio 1.6H Height (Feet): 5 Height (Inches): 7.00 Weight (Pounds): 150 General Appearance: no apparent distress Cardiovascular: arrhythmia Objective no change in PE EZEKIEL BRUNO 25, 2017 14:10
[2016-09-16 16:00] VITALS: BP 132/78
[2016-09-16] MEDS ORDERED: Warfarin Sodium 5mg ORAL ONE (17:00)
--- NOTE | 2016-09-16 17:38 | Infectious Diseases Prog Note ---
Assessment/Plan Assessment/Plan ASSESSMENT: 56 y/o female with: // COPD exacerbation - improved, SCx NRF - CXR 09/14: No acute findings - negative: influenza // Leukocytosis - improved, afebrile ( on steroids ) // SHANKAR - stable // A-fib with RVR // Severe MR // UDS(+) cocaine // Sulfa allergy // Full Code PLAN: - continue levaquin d# 3 / 5 - taper steroids per pulm - f/u cultures - monitor CBC, temperatures - monitor BMP - monitor INR - monitor CXR Subjective Constitutional: Denies: anorexia, chills, drenching sweats, fatigue, fever, no symptoms, other Allergies: Coded Allergies: SULFA (SULFONAMIDE ANTIBIOTICS) (Unverified Allergy, Unknown, 03/29/14) Objective Vital Signs Last 24 Hour Vital Signs Date Time Temp Pulse Resp B/P Pulse Ox O2 Delivery O2 Flow Rate FiO2 09/16/16 17:02 132/78 09/16/16 16:00 96.9 78 18 132/78 Room Air 09/16/16 15:04 133/91 09/16/16 11:43 97.5 75 19 132/78 95 Room Air 09/16/16 08:57 84 148/108 09/16/16 08:56 148/108 09/16/16 08:09 97.6 84 19 148/108 96 Room Air 09/16/16 07:44 84 18 Room Air 21 09/16/16 06:31 138/94 09/16/16 06:31 86 138/94 09/16/16 04:00 98.6 86 18 138/94 97 Room Air 09/16/16 00:00 98.1 89 18 141/103 98 Room Air 09/15/16 22:19 81 125/80 09/15/16 22:12 81 125/80 09/15/16 22:00 125/80 09/15/16 19:12 81 20 Room Air 21 09/15/16 19:00 98.0 88 20 125/80 96 Room Air 09/15/16 18:07 132/77 Height (Feet): 5 Height (Inches): 7.00 Weight (Pounds): 150 HEENT: anicteric Respiratory/Chest: lungs clear, normal breath sounds Cardiovascular: normal rate, regular rhythm Abdomen: soft, non tender, no organomegaly Laboratory Tests Test 09/16/16 05:10 Prothrombin Time 16.6 SEC (9.30-11.50) H Prothromb Time International Ratio 1.6 (0.9-1.1) H Current Medications Medications (Trade) Dose Ordered Sig/Ruben Route PRN Reason Start Time Stop Time Status Last Admin Dose Admin Albuterol/ Ipratropium (DuoNeb 0.5-3(2.5)mg/3ml) 3 ml Q4H PRN HHN dyspnea 09/14/16 04:45 09/19/16 04:44 Aspirin (Ecotrin) 81 mg DAILY ORAL 09/14/16 09:00 10/14/16 08:59 09/16/16 08:57 Carvedilol (Coreg) 25 mg Q12HR ORAL 09/14/16 21:00 10/14/16 20:59 09/16/16 08:57 Clonidine HCl (Catapres) 0.1 mg Q4H PRN ORAL SBP>160 09/14/16 04:30 10/14/16 04:29 Dextrose (Dextrose 50%) STAT PRN IV Hypoglycemia 09/14/16 12:45 10/14/16 12:44 Diltiazem HCl (Cardizem) 90 mg EVERY 8 HOURS ORAL 09/16/16 22:00 10/16/16 21:59 Enoxaparin Sodium (Lovenox) 70 mg EVERY 12 HOURS SUBQ 09/14/16 21:00 10/14/16 20:59 09/16/16 08:53 Hydralazine HCl (Apresoline) 50 mg EVERY 8 HOURS ORAL 09/14/16 22:00 10/14/16 21:59 09/16/16 15:04 Levofloxacin (Levaquin 750mg/ D5W) 150 ml @ 100 mls/hr Q24H IVPB 09/14/16 09:00 09/18/16 23:59 09/16/16 10:41 Lisinopril (Zestril) 10 mg BID ORAL 09/15/16 09:00 10/15/16 08:59 09/16/16 17:02 Lorazepam (Ativan 2mg/ml 1ml) 0.5 mg Q4H PRN IV For Anxiety 09/14/16 04:45 09/21/16 04:44 Morphine Sulfate (Morphine Sulfate) 2 mg Q4H PRN IVP severe pain 7-10 09/14/16 04:45 09/21/16 04:44 Nicotine (Nicoderm) 1 patch Q24H TDERMAL 09/14/16 16:00 10/14/16 15:59 09/16/16 17:03 Nitroglycerin (Ntg) 0.4 mg Q5M X 3 DOSES PRN SL Prn Chest Pain 09/14/16 01:30 10/14/16 01:29 Ondansetron HCl (Zofran) 4 mg Q6H PRN IVP Nausea & Vomiting 09/14/16 06:45 10/14/16 06:44 Promethazine HCl/ Codeine (Phenergan with Codeine) 5 ml Q6H PRN ORAL cough 09/14/16 06:45 10/14/16 06:44 Ranitidine HCl (Zantac) 150 mg DAILY ORAL 09/14/16 18:00 10/14/16 17:59 09/16/16 08:56 Temazepam (Restoril) 15 mg HSPRN PRN ORAL Insomnia 09/14/16 12:45 09/21/16 12:44 Theophylline (Vasiliy-Dur) 100 mg EVERY 12 HOURS ORAL 09/14/16 09:00 10/14/16 08:59 09/16/16 08:57 Warfarin Sodium 1 ea 1 ea DAILY PRN MISC Per rx protocol 09/14/16 09:00 10/14/16 08:59 AUBRIE CHASE M.D. Sep 16, 2016 17:38
--- NOTE | 2016-09-16 17:56 | Pulmonology Progress Note ---
Assessment/Plan Problems: (1) COPD exacerbation (2) Leukocytosis (3) Afib (4) HTN (hypertension) Assessment/Plan off steroids IV antibiotics respiratory treatment inr daily on Coumadine Subjective ROS Limited/Unobtainable: No Interval Events: feeling better HEENT: Repors: no symptoms Cardiovascular: Reports: no symptoms Allergies: Coded Allergies: SULFA (SULFONAMIDE ANTIBIOTICS) (Unverified Allergy, Unknown, 03/29/14) Objective Last 24 Hour Vital Signs Date Time Temp Pulse Resp B/P Pulse Ox O2 Delivery O2 Flow Rate FiO2 09/16/16 17:02 132/78 09/16/16 16:00 96.9 78 18 132/78 Room Air 09/16/16 15:04 133/91 09/16/16 11:43 97.5 75 19 132/78 95 Room Air 09/16/16 08:57 84 148/108 09/16/16 08:56 148/108 09/16/16 08:09 97.6 84 19 148/108 96 Room Air 09/16/16 07:44 84 18 Room Air 21 09/16/16 06:31 138/94 09/16/16 06:31 86 138/94 09/16/16 04:00 98.6 86 18 138/94 97 Room Air 09/16/16 00:00 98.1 89 18 141/103 98 Room Air 09/15/16 22:19 81 125/80 09/15/16 22:12 81 125/80 09/15/16 22:00 125/80 09/15/16 19:12 81 20 Room Air 21 09/15/16 19:00 98.0 88 20 125/80 96 Room Air 09/15/16 18:07 132/77 Intake and Output 09/15/16 09/16/16 19:00 07:00 Intake Total 550 ml 240 ml Output Total 1000 ml Balance -450 ml 240 ml Intake Oral 550 ml 240 ml Output Urine Total 1000 ml # Voids 7 General Appearance: WD/WN HEENT: normocephalic Respiratory/Chest: chest wall non-tender, lungs clear Cardiovascular: normal peripheral pulses Abdomen: normal bowel sounds, soft, non tender Genitourinary: normal external genitalia Laboratory Tests 09/16/16 05:10: Prothrombin Time 16.6H, Prothromb Time International Ratio 1.6H Current Medications Medications (Trade) Dose Ordered Sig/Ruben Route PRN Reason Start Time Stop Time Status Last Admin Dose Admin Albuterol/ Ipratropium (DuoNeb 0.5-3(2.5)mg/3ml) 3 ml Q4H PRN HHN dyspnea 09/14/16 04:45 09/19/16 04:44 Aspirin (Ecotrin) 81 mg DAILY ORAL 09/14/16 09:00 10/14/16 08:59 09/16/16 08:57 Carvedilol (Coreg) 25 mg Q12HR ORAL 09/14/16 21:00 10/14/16 20:59 09/16/16 08:57 Clonidine HCl (Catapres) 0.1 mg Q4H PRN ORAL SBP>160 09/14/16 04:30 10/14/16 04:29 Dextrose (Dextrose 50%) STAT PRN IV Hypoglycemia 09/14/16 12:45 10/14/16 12:44 Diltiazem HCl (Cardizem) 90 mg EVERY 8 HOURS ORAL 09/16/16 22:00 10/16/16 21:59 Enoxaparin Sodium (Lovenox) 70 mg EVERY 12 HOURS SUBQ 09/14/16 21:00 10/14/16 20:59 09/16/16 08:53 Hydralazine HCl (Apresoline) 50 mg EVERY 8 HOURS ORAL 09/14/16 22:00 10/14/16 21:59 09/16/16 15:04 Levofloxacin (Levaquin 750mg/ D5W) 150 ml @ 100 mls/hr Q24H IVPB 09/14/16 09:00 09/18/16 23:59 09/16/16 10:41 Lisinopril (Zestril) 10 mg BID ORAL 09/15/16 09:00 10/15/16 08:59 09/16/16 17:02 Lorazepam (Ativan 2mg/ml 1ml) 0.5 mg Q4H PRN IV For Anxiety 09/14/16 04:45 09/21/16 04:44 Morphine Sulfate (Morphine Sulfate) 2 mg Q4H PRN IVP severe pain 7-10 09/14/16 04:45 09/21/16 04:44 Nicotine (Nicoderm) 1 patch Q24H TDERMAL 09/14/16 16:00 10/14/16 15:59 09/16/16 17:03 Nitroglycerin (Ntg) 0.4 mg Q5M X 3 DOSES PRN SL Prn Chest Pain 09/14/16 01:30 10/14/16 01:29 Ondansetron HCl (Zofran) 4 mg Q6H PRN IVP Nausea & Vomiting 09/14/16 06:45 10/14/16 06:44 Promethazine HCl/ Codeine (Phenergan with Codeine) 5 ml Q6H PRN ORAL cough 09/14/16 06:45 10/14/16 06:44 Ranitidine HCl (Zantac) 150 mg DAILY ORAL 09/14/16 18:00 10/14/16 17:59 09/16/16 08:56 Temazepam (Restoril) 15 mg HSPRN PRN ORAL Insomnia 09/14/16 12:45 09/21/16 12:44 Theophylline (Vasiliy-Dur) 100 mg EVERY 12 HOURS ORAL 09/14/16 09:00 10/14/16 08:59 09/16/16 08:57 Warfarin Sodium 1 ea 1 ea DAILY PRN MISC Per rx protocol 09/14/16 09:00 10/14/16 08:59 CANDIDO MARQUES Sep 16, 2016 17:56
[2016-09-16 19:00] VITALS: BP 127/91
[2016-09-16] MEDS: Diltiazem 90mg tab ORAL SCH (21:16)
[2016-09-17 00:32] VITALS: BP 128/94
[2016-09-17 04:00] VITALS: BP 138/101
[2016-09-17] MEDS: HydrALAZINE 50mg tab ORAL SCH ×3 (05:38→21:38)
[2016-09-17] MEDS: Diltiazem 90mg tab ORAL SCH (05:38)
[2016-09-17 07:25] LABS: INR 1.8 (0.9-1.1); PROTHROMBIN TIME 18.9 SEC (9.30-11.50)
[2016-09-17 07:28] LABS: BASOPHILS % (AUTO) 1.6 % (0.0-2.0); EOSINOPHILS % (AUTO) 0.4 % (0.0-3.0); LYMPHOCYTES % (AUTO) 13.3 % (20.0-45.0); MEAN CORPUSCULAR HEMOGLOBIN 26.8 PG (27.0-31.0); MEAN CORPUSCULAR HGB CONC 31.6 G/DL (32.0-36.0); MEAN CORPUSCULAR VOLUME 85 FL (80-99); MEAN PLATELET VOLUME 10.6 FL (6.5-10.1); MONOCYTES % (AUTO) 7.4 % (1.0-10.0); NEUTROPHILS % (AUTO) 77.3 % (45.0-75.0); PLATELET COUNT 168 K/UL (150-450); RED BLOOD COUNT 5.79 M/UL (4.20-5.40); RED CELL DISTRIBUTION WIDTH 14.2 % (11.6-14.8); WHITE BLOOD COUNT 12.2 K/UL (4.8-10.8)
[2016-09-17 07:58] VITALS: BP 107/58
[2016-09-17 08:00] LABS: ALANINE AMINOTRANSFERASE 14 U/L (3-33); ALBUMIN/GLOBULIN RATIO 1.4 (1.0-2.7); ANION GAP 9 (5-15); ASPARTATE AMINO TRANSFERASE 13 U/L (5-40); CALCIUM 8.7 mg/dL (8.6-10.2); CARBON DIOXIDE 30 mEQ/L (20-30); CHLORIDE 103 mEQ/L (98-107); CREATININE 1.3 mg/dL (0.5-0.9); GLOMERULAR FILTRATION RATE 51.4 mL/min (>60); HEMOLYSIS 6; MAGNESIUM 2.1 mg/dL (1.7-2.5); PHOSPHORUS 3.2 mg/dL (2.5-4.8); POTASSIUM 4.3 mEQ/L (3.4-4.9); SODIUM 142 mEQ/L (135-145); TOTAL PROTEIN 5.2 g/dL (6.6-8.7); URIC ACID 6.9 mg/dL (3.0-7.5)
[2016-09-17] MEDS: Lisinopril 10mg tab ORAL SCH (09:00)
[2016-09-17] MEDS: Carvedilol 12.5mg tab ORAL SCH ×2 (09:00→21:38)
[2016-09-17] MEDS: Enoxaparin 80mg Inj SUBQ SCH ×2 (09:07→21:42)
[2016-09-17] MEDS: Aspirin EC 81mg tab ORAL SCH (09:08)
[2016-09-17] MEDS: Theophylline ER 100mg ORAL SCH ×2 (09:08→21:38)
--- NOTE | 2016-09-17 09:23 | Infectious Diseases Prog Note ---
Assessment/Plan Assessment/Plan ASSESSMENT: 56 y/o female with: // COPD exacerbation - improved, SCx NRF - CXR 09/14: No acute findings - negative: influenza // Leukocytosis - improved, afebrile ( on steroids ) // SHANKAR - stable // A-fib with RVR // Severe MR // UDS(+) cocaine // Sulfa allergy // Full Code PLAN: - continue Levaquin d# 4 / 5 upon DC will change to po to complete the course - taper steroids per pulm - f/u cultures - monitor CBC, temperatures - monitor BMP - monitor INR - monitor CXR Subjective Constitutional: Denies: anorexia, chills, drenching sweats, fatigue, fever, no symptoms, other Allergies: Coded Allergies: SULFA (SULFONAMIDE ANTIBIOTICS) (Unverified Allergy, Unknown, 03/29/14) Objective Vital Signs Last 24 Hour Vital Signs Date Time Temp Pulse Resp B/P Pulse Ox O2 Delivery O2 Flow Rate FiO2 09/17/16 09:00 102/67 09/17/16 09:00 60 102/67 09/17/16 07:58 97.7 62 21 107/58 97 Room Air 09/17/16 05:38 83 138/101 09/17/16 05:38 138/101 09/17/16 04:00 97.0 81 20 138/101 99 Room Air 09/17/16 00:32 98.2 69 20 128/94 98 Room Air 09/16/16 21:16 80 132/78 09/16/16 21:12 80 132/78 09/16/16 21:11 132/78 09/16/16 19:03 80 18 Room Air 21 09/16/16 19:00 97.9 89 20 127/91 99 Room Air 09/16/16 17:02 132/78 09/16/16 16:00 96.9 78 18 132/78 Room Air 09/16/16 15:04 133/91 09/16/16 11:43 97.5 75 19 132/78 95 Room Air Height (Feet): 5 Height (Inches): 7.00 Weight (Pounds): 150 HEENT: anicteric Respiratory/Chest: normal breath sounds Cardiovascular: regular rhythm Abdomen: soft, non tender Laboratory Tests Test 09/17/16 06:25 White Blood Count 12.2 K/UL (4.8-10.8) H Red Blood Count 5.79 M/UL (4.20-5.40) H Hemoglobin 15.5 G/DL (12.0-16.0) Hematocrit 49.2 % (37.0-47.0) H Mean Corpuscular Volume 85 FL (80-99) Mean Corpuscular Hemoglobin 26.8 PG (27.0-31.0) L Mean Corpuscular Hemoglobin Concent 31.6 G/DL (32.0-36.0) L Red Cell Distribution Width 14.2 % (11.6-14.8) Platelet Count 168 K/UL (150-450) Mean Platelet Volume 10.6 FL (6.5-10.1) H Neutrophils (%) (Auto) 77.3 % (45.0-75.0) H Lymphocytes (%) (Auto) 13.3 % (20.0-45.0) L Monocytes (%) (Auto) 7.4 % (1.0-10.0) Eosinophils (%) (Auto) 0.4 % (0.0-3.0) Basophils (%) (Auto) 1.6 % (0.0-2.0) Prothrombin Time 18.9 SEC (9.30-11.50) H Prothromb Time International Ratio 1.8 (0.9-1.1) H Sodium Level 142 mEQ/L (135-145) Potassium Level 4.3 mEQ/L (3.4-4.9) Chloride Level 103 mEQ/L (98-107) Carbon Dioxide Level 30 mEQ/L (20-30) Anion Gap 9 (5-15) Blood Urea Nitrogen 34 mg/dL (7-23) H Creatinine 1.3 mg/dL (0.5-0.9) H Estimat Glomerular Filtration Rate 51.4 mL/min (>60) Glucose Level 77 mg/dL (74-106) Uric Acid 6.9 mg/dL (3.0-7.5) Calcium Level 8.7 mg/dL (8.6-10.2) Phosphorus Level 3.2 mg/dL (2.5-4.8) Magnesium Level 2.1 mg/dL (1.7-2.5) Total Bilirubin < 0.2 mg/dL (0.0-1.2) Aspartate Amino Transf (AST/SGOT) 13 U/L (5-40) Alanine Aminotransferase (ALT/SGPT) 14 U/L (3-33) Alkaline Phosphatase 93 U/L (35-104) Total Protein 5.2 g/dL (6.6-8.7) L Albumin 3.1 g/dL (3.5-5.2) L Globulin 2.1 g/dL Albumin/Globulin Ratio 1.4 (1.0-2.7) Current Medications Medications (Trade) Dose Ordered Sig/Ruben Route PRN Reason Start Time Stop Time Status Last Admin Dose Admin Albuterol/ Ipratropium (DuoNeb 0.5-3(2.5)mg/3ml) 3 ml Q4H PRN HHN dyspnea 09/14/16 04:45 09/19/16 04:44 Aspirin (Ecotrin) 81 mg DAILY ORAL 09/14/16 09:00 10/14/16 08:59 09/17/16 09:08 Carvedilol (Coreg) 25 mg Q12HR ORAL 09/14/16 21:00 10/14/16 20:59 09/16/16 21:12 Clonidine HCl (Catapres) 0.1 mg Q4H PRN ORAL SBP>160 09/14/16 04:30 10/14/16 04:29 Dextrose (Dextrose 50%) STAT PRN IV Hypoglycemia 09/14/16 12:45 10/14/16 12:44 Diltiazem HCl (Cardizem) 90 mg EVERY 8 HOURS ORAL 09/16/16 22:00 10/16/16 21:59 09/17/16 05:38 Enoxaparin Sodium (Lovenox) 70 mg EVERY 12 HOURS SUBQ 09/14/16 21:00 10/14/16 20:59 09/17/16 09:07 Hydralazine HCl (Apresoline) 50 mg EVERY 8 HOURS ORAL 09/14/16 22:00 10/14/16 21:59 09/17/16 05:38 Levofloxacin (Levaquin 750mg/ D5W) 150 ml @ 100 mls/hr Q24H IVPB 09/14/16 09:00 09/18/16 23:59 09/17/16 09:06 Lisinopril (Zestril) 10 mg BID ORAL 09/15/16 09:00 10/15/16 08:59 09/16/16 17:02 Lorazepam (Ativan 2mg/ml 1ml) 0.5 mg Q4H PRN IV For Anxiety 09/14/16 04:45 09/21/16 04:44 Morphine Sulfate (Morphine Sulfate) 2 mg Q4H PRN IVP severe pain 7-10 09/14/16 04:45 09/21/16 04:44 Nicotine (Nicoderm) 1 patch Q24H TDERMAL 09/14/16 16:00 10/14/16 15:59 09/16/16 17:03 Nitroglycerin (Ntg) 0.4 mg Q5M X 3 DOSES PRN SL Prn Chest Pain 09/14/16 01:30 10/14/16 01:29 Ondansetron HCl (Zofran) 4 mg Q6H PRN IVP Nausea & Vomiting 09/14/16 06:45 10/14/16 06:44 Promethazine HCl/ Codeine (Phenergan with Codeine) 5 ml Q6H PRN ORAL cough 09/14/16 06:45 10/14/16 06:44 Ranitidine HCl (Zantac) 150 mg DAILY ORAL 09/14/16 18:00 10/14/16 17:59 09/17/16 09:08 Temazepam (Restoril) 15 mg HSPRN PRN ORAL Insomnia 09/14/16 12:45 09/21/16 12:44 Theophylline (Vasiliy-Dur) 100 mg EVERY 12 HOURS ORAL 09/14/16 09:00 10/14/16 08:59 09/17/16 09:08 Warfarin Sodium (Coumadin) 6 mg COUMADIN ONCE ORAL 09/17/16 17:00 09/17/16 17:01 Warfarin Sodium 1 ea 1 ea DAILY PRN MISC Per rx protocol 09/14/16 09:00 10/14/16 08:59 AUBRIE CHASE M.D. Sep 17, 2016 09:23
[2016-09-17 11:50] VITALS: BP 105/63
--- NOTE | 2016-09-17 12:05 | General Progress Note ---
Assessment/Plan Status: stable Assessment/Plan status: Rising Scr likely due to Lasix - now 1.3 stable HTN OOC - controlled. low bp at times Arrythmia Drug Abuse COPD Plan: Adjust BP meds- change cardiazem dosage Off Lasix Taper steroids Monitor renal parameters- K supplement as needed Gastric protection Per orders- Subjective ROS Limited/Unobtainable: No Constitutional: Reports: malaise Allergies: Coded Allergies: SULFA (SULFONAMIDE ANTIBIOTICS) (Unverified Allergy, Unknown, 03/29/14) Objective Last 24 Hour Vital Signs Date Time Temp Pulse Resp B/P Pulse Ox O2 Delivery O2 Flow Rate FiO2 09/17/16 11:50 97.7 66 20 105/63 98 Room Air 09/17/16 09:40 94 18 Room Air 21 09/17/16 09:00 102/67 09/17/16 09:00 60 102/67 09/17/16 07:58 97.7 62 21 107/58 97 Room Air 09/17/16 05:38 83 138/101 09/17/16 05:38 138/101 09/17/16 04:00 97.0 81 20 138/101 99 Room Air 09/17/16 00:32 98.2 69 20 128/94 98 Room Air 09/16/16 21:16 80 132/78 09/16/16 21:12 80 132/78 09/16/16 21:11 132/78 09/16/16 19:03 80 18 Room Air 21 09/16/16 19:00 97.9 89 20 127/91 99 Room Air 09/16/16 17:02 132/78 09/16/16 16:00 96.9 78 18 132/78 Room Air 09/16/16 15:04 133/91 Intake and Output 09/16/16 09/17/16 19:00 07:00 Intake Total 620 ml 360 ml Balance 620 ml 360 ml Intake Oral 620 ml 360 ml # Voids 3 5 Laboratory Tests 09/17/16 06:25: White Blood Count 12.2H, Red Blood Count 5.79H, Hemoglobin 15.5, Hematocrit 49.2H, Mean Corpuscular Volume 85, Mean Corpuscular Hemoglobin 26.8L, Mean Corpuscular Hemoglobin Concent 31.6L, Red Cell Distribution Width 14.2, Platelet Count 168, Mean Platelet Volume 10.6H, Neutrophils (%) (Auto) 77.3H, Lymphocytes (%) (Auto) 13.3L, Monocytes (%) (Auto) 7.4, Eosinophils (%) (Auto) 0.4, Basophils (%) (Auto) 1.6, Prothrombin Time 18.9H, Prothromb Time International Ratio 1.8H, Sodium Level 142, Potassium Level 4.3, Chloride Level 103, Carbon Dioxide Level 30, Anion Gap 9, Blood Urea Nitrogen 34H, Creatinine 1.3H, Estimat Glomerular Filtration Rate 51.4, Glucose Level 77, Uric Acid 6.9, Calcium Level 8.7, Phosphorus Level 3.2, Magnesium Level 2.1, Total Bilirubin < 0.2, Aspartate Amino Transf (AST/SGOT) 13, Alanine Aminotransferase (ALT/SGPT) 14, Alkaline Phosphatase 93, Total Protein 5.2L, Albumin 3.1L, Globulin 2.1, Albumin/Globulin Ratio 1.4 Height (Feet): 5 Height (Inches): 7.00 Weight (Pounds): 150 General Appearance: no apparent distress Objective no change in PE EZEKIEL BRUNO Sep 17, 2016 12:05
[2016-09-17] MEDS ORDERED: COREG12.5 MG ORAL (15:01)
[2016-09-17] MEDS ORDERED: CARDIZEM60 MG ORAL (15:01)
[2016-09-17] MEDS ORDERED: APRESOLINE50 MG ORAL (15:01)
[2016-09-17] MEDS ORDERED: COUMADIN3 MG ORAL (15:01)
--- NOTE | 2016-09-17 15:04 | Pulmonology Progress Note ---
Assessment/Plan Problems: (1) COPD exacerbation (2) Leukocytosis (3) Afib (4) HTN (hypertension) Assessment/Plan off steroids IV antibiotics respiratory treatment inr daily on Coumadine INR. 1.8,, on lovenox, rising steady will be ready to dc in am Subjective ROS Limited/Unobtainable: No Interval Events: feeling better Constitutional: Reports: no symptoms HEENT: Repors: no symptoms Respiratory: Reports: no symptoms Allergies: Coded Allergies: SULFA (SULFONAMIDE ANTIBIOTICS) (Unverified Allergy, Unknown, 03/29/14) Objective Last 24 Hour Vital Signs Date Time Temp Pulse Resp B/P Pulse Ox O2 Delivery O2 Flow Rate FiO2 09/17/16 13:38 85 129/88 09/17/16 13:38 129/88 09/17/16 11:50 97.7 66 20 105/63 98 Room Air 09/17/16 09:40 94 18 Room Air 21 09/17/16 09:00 102/67 09/17/16 09:00 60 102/67 09/17/16 07:58 97.7 62 21 107/58 97 Room Air 09/17/16 05:38 83 138/101 09/17/16 05:38 138/101 09/17/16 04:00 97.0 81 20 138/101 99 Room Air 09/17/16 00:32 98.2 69 20 128/94 98 Room Air 09/16/16 21:16 80 132/78 09/16/16 21:12 80 132/78 09/16/16 21:11 132/78 09/16/16 19:03 80 18 Room Air 21 09/16/16 19:00 97.9 89 20 127/91 99 Room Air 09/16/16 17:02 132/78 09/16/16 16:00 96.9 78 18 132/78 Room Air 09/16/16 15:04 133/91 Intake and Output 09/16/16 09/17/16 19:00 07:00 Intake Total 620 ml 360 ml Balance 620 ml 360 ml Intake Oral 620 ml 360 ml # Voids 3 5 General Appearance: WD/WN HEENT: normocephalic, atraumatic Respiratory/Chest: chest wall non-tender, lungs clear Cardiovascular: normal peripheral pulses, normal rate Abdomen: normal bowel sounds, no organomegaly Genitourinary: normal external genitalia Extremities: no cyanosis 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, no motor/sensory deficits Lymphatic: no neck adenopathy Laboratory Tests 09/17/16 06:25: White Blood Count 12.2H, Red Blood Count 5.79H, Hemoglobin 15.5, Hematocrit 49.2H, Mean Corpuscular Volume 85, Mean Corpuscular Hemoglobin 26.8L, Mean Corpuscular Hemoglobin Concent 31.6L, Red Cell Distribution Width 14.2, Platelet Count 168, Mean Platelet Volume 10.6H, Neutrophils (%) (Auto) 77.3H, Lymphocytes (%) (Auto) 13.3L, Monocytes (%) (Auto) 7.4, Eosinophils (%) (Auto) 0.4, Basophils (%) (Auto) 1.6, Prothrombin Time 18.9H, Prothromb Time International Ratio 1.8H, Sodium Level 142, Potassium Level 4.3, Chloride Level 103, Carbon Dioxide Level 30, Anion Gap 9, Blood Urea Nitrogen 34H, Creatinine 1.3H, Estimat Glomerular Filtration Rate 51.4, Glucose Level 77, Uric Acid 6.9, Calcium Level 8.7, Phosphorus Level 3.2, Magnesium Level 2.1, Total Bilirubin < 0.2, Aspartate Amino Transf (AST/SGOT) 13, Alanine Aminotransferase (ALT/SGPT) 14, Alkaline Phosphatase 93, Total Protein 5.2L, Albumin 3.1L, Globulin 2.1, Albumin/Globulin Ratio 1.4 Current Medications Medications (Trade) Dose Ordered Sig/Ruben Route PRN Reason Start Time Stop Time Status Last Admin Dose Admin Albuterol/ Ipratropium (DuoNeb 0.5-3(2.5)mg/3ml) 3 ml Q4H PRN HHN dyspnea 09/14/16 04:45 09/19/16 04:44 Aspirin (Ecotrin) 81 mg DAILY ORAL 09/14/16 09:00 10/14/16 08:59 09/17/16 09:08 Carvedilol (Coreg) 25 mg Q12HR ORAL 09/14/16 21:00 10/14/16 20:59 09/16/16 21:12 Clonidine HCl (Catapres) 0.1 mg Q4H PRN ORAL SBP>160 09/14/16 04:30 10/14/16 04:29 Dextrose (Dextrose 50%) STAT PRN IV Hypoglycemia 09/14/16 12:45 10/14/16 12:44 Diltiazem HCl (Cardizem) 60 mg EVERY 8 HOURS ORAL 09/17/16 14:00 10/17/16 13:59 09/17/16 13:38 Enoxaparin Sodium (Lovenox) 70 mg EVERY 12 HOURS SUBQ 09/14/16 21:00 10/14/16 20:59 09/17/16 09:07 Hydralazine HCl (Apresoline) 50 mg EVERY 8 HOURS ORAL 09/14/16 22:00 10/14/16 21:59 09/17/16 13:38 Levofloxacin (Levaquin 750mg/ D5W) 150 ml @ 100 mls/hr Q24H IVPB 09/14/16 09:00 09/18/16 23:59 09/17/16 09:06 Lisinopril (Zestril) 10 mg DAILY ORAL 09/18/16 09:00 10/18/16 08:59 Lorazepam (Ativan 2mg/ml 1ml) 0.5 mg Q4H PRN IV For Anxiety 09/14/16 04:45 09/21/16 04:44 Morphine Sulfate (Morphine Sulfate) 2 mg Q4H PRN IVP severe pain 7-10 09/14/16 04:45 09/21/16 04:44 Nicotine (Nicoderm) 1 patch Q24H TDERMAL 09/14/16 16:00 10/14/16 15:59 09/16/16 17:03 Nitroglycerin (Ntg) 0.4 mg Q5M X 3 DOSES PRN SL Prn Chest Pain 09/14/16 01:30 10/14/16 01:29 Ondansetron HCl (Zofran) 4 mg Q6H PRN IVP Nausea & Vomiting 09/14/16 06:45 10/14/16 06:44 Promethazine HCl/ Codeine (Phenergan with Codeine) 5 ml Q6H PRN ORAL cough 09/14/16 06:45 10/14/16 06:44 Ranitidine HCl (Zantac) 150 mg DAILY ORAL 09/14/16 18:00 10/14/16 17:59 09/17/16 09:08 Temazepam (Restoril) 15 mg HSPRN PRN ORAL Insomnia 09/14/16 12:45 09/21/16 12:44 Theophylline (Vasiliy-Dur) 100 mg EVERY 12 HOURS ORAL 09/14/16 09:00 10/14/16 08:59 09/17/16 09:08 Warfarin Sodium (Coumadin) 6 mg COUMADIN ONCE ORAL 09/17/16 17:00 09/17/16 17:01 Warfarin Sodium 1 ea 1 ea DAILY PRN MISC Per rx protocol 09/14/16 09:00 10/14/16 08:59 CANDIDO MARQUES Sep 17, 2016 15:04
[2016-09-17 16:00] VITALS: BP 123/74
[2016-09-17] MEDS ORDERED: Warfarin Sodium 3mg ORAL ONE (17:00)
[2016-09-17 19:00] VITALS: BP 132/91
[2016-09-18] VITALS: BP 124/82
[2016-09-18 04:00] VITALS: BP 136/87
[2016-09-18] MEDS: HydrALAZINE 50mg tab ORAL SCH (06:03)
[2016-09-18 07:02] LABS: INR 1.7 (0.9-1.1)
[2016-09-18 08:03] VITALS: BP 146/95
[2016-09-18] MEDS: Aspirin EC 81mg tab ORAL SCH (08:22)
[2016-09-18] MEDS: Theophylline ER 100mg ORAL SCH (08:22)
[2016-09-18] MEDS: Carvedilol 12.5mg tab ORAL SCH (08:22)
[2016-09-18] MEDS: Enoxaparin 80mg Inj SUBQ SCH (08:23)
--- NOTE | 2016-09-18 08:41 | Infectious Diseases Prog Note ---
Assessment/Plan Assessment/Plan ASSESSMENT: 56 y/o female with: // COPD exacerbation - improved, SCx NRF - CXR 09/14: No acute findings - negative: influenza // Leukocytosis - improved, afebrile ( on steroids ) // SHANKAR - stable // A-fib with RVR // Severe MR // UDS(+) cocaine // Sulfa allergy // Full Code PLAN: - DC Levaquin d# 5 and monitor pt off of AB Rx - taper steroids per pulm - f/u cultures - monitor CBC, temperatures - monitor BMP - monitor INR - monitor CXR Subjective Constitutional: Denies: anorexia, chills, drenching sweats, fatigue, fever, no symptoms, other Allergies: Coded Allergies: SULFA (SULFONAMIDE ANTIBIOTICS) (Unverified Allergy, Unknown, 03/29/14) Objective Vital Signs Last 24 Hour Vital Signs Date Time Temp Pulse Resp B/P Pulse Ox O2 Delivery O2 Flow Rate FiO2 09/18/16 08:22 146/95 09/18/16 08:22 81 146/95 09/18/16 08:03 97.7 81 20 146/95 97 Room Air 09/18/16 06:03 82 136/87 09/18/16 06:03 136/87 09/18/16 04:00 97.2 82 18 136/87 97 Room Air 09/18/16 00:00 96.6 74 18 124/82 99 Room Air 09/17/16 21:38 85 132/91 09/17/16 21:38 132/91 09/17/16 21:38 85 132/91 09/17/16 20:13 85 18 Room Air 09/17/16 19:00 97.7 82 18 132/91 96 Room Air 09/17/16 16:00 96.6 65 18 123/74 99 Room Air 09/17/16 13:38 85 129/88 09/17/16 13:38 129/88 09/17/16 11:50 97.7 66 20 105/63 98 Room Air 09/17/16 09:40 94 18 Room Air 21 09/17/16 09:00 102/67 09/17/16 09:00 60 102/67 Height (Feet): 5 Height (Inches): 7.00 Weight (Pounds): 150 HEENT: atraumatic Respiratory/Chest: normal breath sounds Cardiovascular: regularly irregular Abdomen: non distended Laboratory Tests Test 09/18/16 04:55 Prothrombin Time 18.0 SEC (9.30-11.50) H Prothromb Time International Ratio 1.7 (0.9-1.1) H Current Medications Medications (Trade) Dose Ordered Sig/Ruben Route PRN Reason Start Time Stop Time Status Last Admin Dose Admin Albuterol/ Ipratropium (DuoNeb 0.5-3(2.5)mg/3ml) 3 ml Q4H PRN HHN dyspnea 09/14/16 04:45 09/19/16 04:44 Aspirin (Ecotrin) 81 mg DAILY ORAL 09/14/16 09:00 10/14/16 08:59 09/18/16 08:22 Carvedilol (Coreg) 25 mg Q12HR ORAL 09/14/16 21:00 10/14/16 20:59 09/18/16 08:22 Clonidine HCl (Catapres) 0.1 mg Q4H PRN ORAL SBP>160 09/14/16 04:30 10/14/16 04:29 Dextrose (Dextrose 50%) STAT PRN IV Hypoglycemia 09/14/16 12:45 10/14/16 12:44 Diltiazem HCl (Cardizem) 60 mg EVERY 8 HOURS ORAL 09/17/16 14:00 10/17/16 13:59 09/18/16 06:03 Enoxaparin Sodium (Lovenox) 70 mg EVERY 12 HOURS SUBQ 09/14/16 21:00 10/14/16 20:59 09/18/16 08:23 Hydralazine HCl (Apresoline) 50 mg EVERY 8 HOURS ORAL 09/14/16 22:00 10/14/16 21:59 09/18/16 06:03 Levofloxacin (Levaquin 750mg/ D5W) 150 ml @ 100 mls/hr Q24H IVPB 09/14/16 09:00 09/18/16 23:59 09/18/16 08:21 Lisinopril (Zestril) 10 mg DAILY ORAL 09/18/16 09:00 10/18/16 08:59 09/18/16 08:22 Lorazepam (Ativan 2mg/ml 1ml) 0.5 mg Q4H PRN IV For Anxiety 09/14/16 04:45 09/21/16 04:44 Morphine Sulfate (Morphine Sulfate) 2 mg Q4H PRN IVP severe pain 7-10 09/14/16 04:45 09/21/16 04:44 Nicotine (Nicoderm) 1 patch Q24H TDERMAL 09/14/16 16:00 10/14/16 15:59 09/17/16 16:33 Nitroglycerin (Ntg) 0.4 mg Q5M X 3 DOSES PRN SL Prn Chest Pain 09/14/16 01:30 10/14/16 01:29 Ondansetron HCl (Zofran) 4 mg Q6H PRN IVP Nausea & Vomiting 09/14/16 06:45 10/14/16 06:44 Promethazine HCl/ Codeine (Phenergan with Codeine) 5 ml Q6H PRN ORAL cough 09/14/16 06:45 10/14/16 06:44 Ranitidine HCl (Zantac) 150 mg DAILY ORAL 09/14/16 18:00 10/14/16 17:59 09/18/16 08:22 Temazepam (Restoril) 15 mg HSPRN PRN ORAL Insomnia 09/14/16 12:45 09/21/16 12:44 Theophylline (Vasiliy-Dur) 100 mg EVERY 12 HOURS ORAL 09/14/16 09:00 10/14/16 08:59 09/18/16 08:22 Warfarin Sodium 1 ea 1 ea DAILY PRN MISC Per rx protocol 09/14/16 09:00 10/14/16 08:59 AUBRIE CHASE M.D. Sep 18, 2016 08:41
[2016-09-18] MEDS ORDERED: Lisinopril 10mg tab ORAL SCH (09:00)
[2016-09-18 11:47] VITALS: BP 132/77
--- NOTE | 2016-09-18 13:47 | General Progress Note ---
Assessment/Plan Status: stable - from renal stand Assessment/Plan status: Rising Scr likely due to Lasix - now 1.3 stable HTN OOC - controlled. low bp at times Arrythmia Drug Abuse COPD Plan: Adjust BP meds- change cardiazem dosage Off Lasix Taper steroids Monitor renal parameters- K supplement as needed Gastric protection Per orders- Subjective ROS Limited/Unobtainable: No Allergies: Coded Allergies: SULFA (SULFONAMIDE ANTIBIOTICS) (Unverified Allergy, Unknown, 03/29/14) Objective Last 24 Hour Vital Signs Date Time Temp Pulse Resp B/P Pulse Ox O2 Delivery O2 Flow Rate FiO2 09/18/16 11:47 97.7 87 21 132/77 97 Room Air 09/18/16 10:15 73 18 Room Air 09/18/16 08:22 146/95 09/18/16 08:22 81 146/95 09/18/16 08:15 73 18 Room Air 09/18/16 08:03 97.7 81 20 146/95 97 Room Air 09/18/16 06:03 82 136/87 09/18/16 06:03 136/87 09/18/16 04:00 97.2 82 18 136/87 97 Room Air 09/18/16 00:00 96.6 74 18 124/82 99 Room Air 09/17/16 21:38 85 132/91 09/17/16 21:38 132/91 09/17/16 21:38 85 132/91 09/17/16 20:13 85 18 Room Air 09/17/16 19:00 97.7 82 18 132/91 96 Room Air 09/17/16 16:00 96.6 65 18 123/74 99 Room Air Intake and Output 09/17/16 09/18/16 19:00 07:00 Intake Total 960 ml 480 ml Balance 960 ml 480 ml Intake Oral 960 ml 480 ml # Voids 2 7 Laboratory Tests 09/18/16 04:55: Prothrombin Time 18.0H, Prothromb Time International Ratio 1.7H Height (Feet): 5 Height (Inches): 7.00 Weight (Pounds): 150 General Appearance: no apparent distress Objective no change in PE EZEKIEL BRUNO Sep 18, 2016 13:47
[2016-09-18] MEDS ORDERED: Tubing IV Secondary IV ONE (14:19)
--- NOTE | 2016-09-18 14:21 | Pulmonology Progress Note ---
Assessment/Plan Problems: (1) COPD exacerbation (2) Leukocytosis (3) Afib (4) HTN (hypertension) Assessment/Plan respiratory treatment inr daily on Coumadine INR. 1.7 today,, pt wants to go home and f/u with primary. doesn't want to stay until the INR is therapeutic repeat INR on wednesday as outpatient Subjective ROS Limited/Unobtainable: No Constitutional: Reports: no symptoms HEENT: Repors: no symptoms Respiratory: Reports: no symptoms Allergies: Coded Allergies: SULFA (SULFONAMIDE ANTIBIOTICS) (Unverified Allergy, Unknown, 03/29/14) Objective Last 24 Hour Vital Signs Date Time Temp Pulse Resp B/P Pulse Ox O2 Delivery O2 Flow Rate FiO2 09/18/16 11:47 97.7 87 21 132/77 97 Room Air 09/18/16 10:15 73 18 Room Air 09/18/16 08:22 146/95 09/18/16 08:22 81 146/95 09/18/16 08:15 73 18 Room Air 09/18/16 08:03 97.7 81 20 146/95 97 Room Air 09/18/16 06:03 82 136/87 09/18/16 06:03 136/87 09/18/16 04:00 97.2 82 18 136/87 97 Room Air 09/18/16 00:00 96.6 74 18 124/82 99 Room Air 09/17/16 21:38 85 132/91 09/17/16 21:38 132/91 09/17/16 21:38 85 132/91 09/17/16 20:13 85 18 Room Air 09/17/16 19:00 97.7 82 18 132/91 96 Room Air 09/17/16 16:00 96.6 65 18 123/74 99 Room Air Intake and Output 09/17/16 09/18/16 19:00 07:00 Intake Total 960 ml 480 ml Balance 960 ml 480 ml Intake Oral 960 ml 480 ml # Voids 2 7 General Appearance: WD/WN HEENT: normocephalic Respiratory/Chest: chest wall non-tender Cardiovascular: normal peripheral pulses, normal rate Abdomen: normal bowel sounds, soft, non tender Extremities: no cyanosis Skin: no rash, no ulcers 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 grossly normal Laboratory Tests 09/18/16 04:55: Prothrombin Time 18.0H, Prothromb Time International Ratio 1.7H Current Medications Medications (Trade) Dose Ordered Sig/Ruben Route PRN Reason Start Time Stop Time Status Last Admin Dose Admin Albuterol/ Ipratropium (DuoNeb 0.5-3(2.5)mg/3ml) 3 ml Q4H PRN HHN dyspnea 09/14/16 04:45 09/19/16 04:44 Aspirin (Ecotrin) 81 mg DAILY ORAL 09/14/16 09:00 10/14/16 08:59 09/18/16 08:22 Carvedilol (Coreg) 25 mg Q12HR ORAL 09/14/16 21:00 10/14/16 20:59 09/18/16 08:22 Clonidine HCl (Catapres) 0.1 mg Q4H PRN ORAL SBP>160 09/14/16 04:30 10/14/16 04:29 Dextrose (Dextrose 50%) STAT PRN IV Hypoglycemia 09/14/16 12:45 10/14/16 12:44 Diltiazem HCl (Cardizem) 60 mg EVERY 8 HOURS ORAL 09/17/16 14:00 10/17/16 13:59 09/18/16 06:03 Enoxaparin Sodium (Lovenox) 70 mg EVERY 12 HOURS SUBQ 09/14/16 21:00 10/14/16 20:59 09/18/16 08:23 Hydralazine HCl (Apresoline) 50 mg EVERY 8 HOURS ORAL 09/14/16 22:00 10/14/16 21:59 09/18/16 06:03 Lisinopril (Zestril) 10 mg DAILY ORAL 09/18/16 09:00 10/18/16 08:59 09/18/16 08:22 Lorazepam (Ativan 2mg/ml 1ml) 0.5 mg Q4H PRN IV For Anxiety 09/14/16 04:45 09/21/16 04:44 Morphine Sulfate (Morphine Sulfate) 2 mg Q4H PRN IVP severe pain 7-10 09/14/16 04:45 09/21/16 04:44 Nicotine (Nicoderm) 1 patch Q24H TDERMAL 09/14/16 16:00 10/14/16 15:59 09/17/16 16:33 Nitroglycerin (Ntg) 0.4 mg Q5M X 3 DOSES PRN SL Prn Chest Pain 09/14/16 01:30 10/14/16 01:29 Ondansetron HCl (Zofran) 4 mg Q6H PRN IVP Nausea & Vomiting 09/14/16 06:45 10/14/16 06:44 Promethazine HCl/ Codeine (Phenergan with Codeine) 5 ml Q6H PRN ORAL cough 09/14/16 06:45 10/14/16 06:44 Ranitidine HCl (Zantac) 150 mg DAILY ORAL 09/14/16 18:00 10/14/16 17:59 09/18/16 08:22 Temazepam (Restoril) 15 mg HSPRN PRN ORAL Insomnia 09/14/16 12:45 09/21/16 12:44 Theophylline (Vasiliy-Dur) 100 mg EVERY 12 HOURS ORAL 09/14/16 09:00 10/14/16 08:59 09/18/16 08:22 Warfarin Sodium (Coumadin per pharmacy) 1 ea DAILY PRN MISC Per rx protocol 09/14/16 09:00 10/14/16 08:59 CANDIDO MARQUES Sep 18, 2016 14:21
[2016-09-18] MEDS ORDERED: Warfarin Sodium 3mg ORAL ONE (17:00)
--- NOTE | 2016-09-21 15:18 | Discharge Summary ---
Discharge Summary Hospital Course Date of Admission Sep 11, 2016 at 11:56 Date of Discharge Sep 18, 2016 at 14:20 Admitting Diagnosis COPD/hypertension/afib HPI Elo Menezes is a 56 year old female who was admitted on Sep 11, 2016 at 11:56 for Chronic Obstructive Pulmonary Disorder, A Fib Hospital Course dc summary #[id number] Discharge Medications New Medications: Carvedilol (Coreg) 12.5 Mg Tablet 25 MG ORAL Q12HR for 30 Days, TAB Diltiazem Hcl* (Cardizem*) 60 Mg Tablet 60 MG ORAL EVERY 8 HOURS for 30 Days, TAB Hydralazine HCl (Hydralazine HCl) 50 Mg Tablet 50 MG ORAL EVERY 8 HOURS for 30 Days, TAB Warfarin Sod* (Coumadin*) 3 Mg Tablet 4 MG ORAL COUMADIN for 30 Days, TAB Discharge Discharge Disposition Patient was discharged to Home (01) Discharge Diagnoses: Corby (Kyaleen)Akanksha NP Sep 21, 2016 15:18
--- NOTE | 2016-09-22 04:28 | Discharge Summary 2 SIG ---
DATE OF ADMISSION: 09/11/2016 DATE OF DISCHARGE: 09/18/2016 REASON FOR ADMISSION: 66 years old female presented to emergency department complaining of cough and shortness of breath as well as congestion for few days. Cough was productive. No fever. No chills. She reported wheezing, intermittent shortness of breath, denied hemoptysis. The patient had underlying history of chronic obstructive pulmonary disease, active smoker, also complained of chest pain with coughing, sharp, midsternal, 7/10, nonradiating. The patient found to be hypertensive and tachycardic. EKG revealed atrial fibrillation with rapid ventricular response. Cardizem x2 given in the emergency room with improvement in blood pressure and heart rate. First troponin was negative. The patient started on IV steroids. The patient admitted to being noncompliant with medications. Urine tox screen positive for cocaine. The patient admitted to telemetry floor for further management. ADMITTING DIAGNOSES: 1. Acute chronic obstructive pulmonary disease exacerbation. 2. Atrial fibrillation/Atrial flutter with rapid ventricular response. 3. Chronic atrial fibrillation/atrial flutter. 4. Hypertensive emergency. 5 Cocaine abuse. HOSPITAL STAY: The patient admitted initially to telemetry floor. The patient started on supplemental oxygen. Pulmonary toilet provided. IV steroids started and gradually tapered as permitted. Sputum culture was negative. Influenza screen was negative. Blood culture were negative. The patient was on empiric antibiotics. ID followed. Initial chest x-ray was negative for any acute cardiopulmonary disease, but consistent with chronic obstructive pulmonary disease. Follow up chest x-ray was negative as well. The patient was started on theophylline and antitussive as needed. Blood pressure was managed with beta-abimbola, calcium channel abimbola, and hydralazine. Embossing Tool Setter followed the patient. Per Cardiology, the patient started on anticoagulation. Rate was controlled with beta-abimbola and Cardizem. Embossing Tool Setter recommended to consider ablation when stable. The patient was initially on Lasix. Intake and output , renal parameters were closely monitored. Creatinine got slightly worse. Lasix discontinued. ProBNP minimally elevated. Echocardiogram revealed preserved ejection fraction of 50 to 55%. Right ventricular systolic pressure of 30 and severe mitral regurgitation. The patient was on Coumadin. INR still subtherapeutic 1.75. The patient wanted to go home. She had appointment with her primary restaurant recruiter on 09/17/2016 and will follow up for Coumadin dosing with restaurant recruiter at that day. Patient was encouraged to keep this appointment. Blood pressure medications were adjusted in lieu of elevated creatinine. NATHAN inhibitor stopped. Blood pressure was controlled prior to discharge with beta-abimbola, calcium channel abimbola, and hydralazine. DVT prophylaxis provided. The patient counseled on abstinence from street drugs as well as the abstinence from smoking. The patient started on nicotine patch. The patient also encouraged compliance with medication regimen . The patient was cleared for discharge. Leukocytosis clearing down. No signs of respiratory distress. Congestion decreased. No further wheezing. FINAL DIAGNOSES: 1. Acute chronic obstructive pulmonary disease exacerbation. 2. Atrial fibrillation/atrial flutter with rapid ventricular response, currently controlled 3. Chronic atrial fibrillation/atrial flutter. 4. Hypertensive emergency, resolved. 5. Cocaine abuse. 6. Active smoker. 7. Noncompliance. 8. Severe mitral regurgitation. 9. Renal insufficiency. DISCHARGE MEDICATIONS: See medication reconciliation list. DISCHARGE INSTRUCTIONS: Follow up with restaurant recruiter on 09/17/2016 . . Follow up [facility] care [facility]. Enid Quezada M.D. I have been assigned to dictate discharge summary on this account and I was not involved in the patient's management. Akanksha LlamasStony Brook Southampton HospitalLalita NRonyPRony DR: THAIS JOB#: [id number] CC: SEAN
[2016-10-13] MEDS ORDERED: COUMADIN7.5 MG ORAL (13:29)
== END 2016-09-18 14:20 | disposition home or self-care (01) | DRG 140 ==
LOC: ENRESERVDT → ENRESERVTM → EMR 10:15 → 2E 11:56 → EDBEDREQ 15:57 → 4E 09-14 01:20
DX: J44.1 Chronic obstructive pulmonary disease with (acute) exacerbation (principal); I48.92 Unspecified atrial flutter; I50.9 Heart failure, unspecified; I48.2 Chronic atrial fibrillation; I16.1 Hypertensive emergency; Z91.14 Patient's other noncompliance with medication regimen; Z88.2 Allergy status to sulfonamides; F17.200 Nicotine dependence, unspecified, uncomplicated; I34.0 Nonrheumatic mitral (valve) insufficiency; F14.10 Cocaine abuse, uncomplicated
CPT/HCPCS: 36415; 71010; 80048; 80053; 80061; 80300; 81001; 82550; 82553; 82962; 82977; 83036; 83605; 83735; 83880; 84100; 84300; 84443; 84484; 84550; 85007; 85025; 85610; 86140; 86710; 87040; 87070; 87205; 93005; 93306; 94640; 94664; J1815; J8499

== ENCOUNTER 2016-09-29 20:19 | Inpatient (IN) | payer MEDICAID, OTHER ==
[~2016-09-29] VITALS: Ht 170.2 cm; Wt 80.8 kg
[~2016-09-29 20:19] MED LIST changes: +APRESOLINE50 MG ORAL; +COREG12.5 MG ORAL; +COUMADIN3 MG ORAL
[2016-09-29 20:45] VITALS: BP 121/106
[2016-09-29 21:25] LABS: BASOPHILS % (AUTO) 0.9 % (0.0-2.0); EOSINOPHILS % (AUTO) 0.9 % (0.0-3.0); LYMPHOCYTES % (AUTO) 13.8 % (20.0-45.0); MEAN CORPUSCULAR HEMOGLOBIN 27.4 PG (27.0-31.0); MEAN CORPUSCULAR HGB CONC 31.8 G/DL (32.0-36.0); MEAN CORPUSCULAR VOLUME 86 FL (80-99); MEAN PLATELET VOLUME 9.9 FL (6.5-10.1); MONOCYTES % (AUTO) 7.7 % (1.0-10.0); NEUTROPHILS % (AUTO) 76.7 % (45.0-75.0); PLATELET COUNT 111 K/UL (150-450); RED BLOOD COUNT 5.12 M/UL (4.20-5.40); RED CELL DISTRIBUTION WIDTH 15.8 % (11.6-14.8); WHITE BLOOD COUNT 9.8 K/UL (4.8-10.8)
[2016-09-29 21:30] VITALS: BP 193/155
[2016-09-29] MEDS ORDERED: Diltiazem 25mg/5ml IV ONE (21:45)
[2016-09-29 21:49] LABS: TROPONIN I < 0.30 ng/mL (<=0.30)
[2016-09-29 21:58] LABS: CKMB < 1.5 ng/mL (< 3.8)
[2016-09-29 22:09] LABS: ALANINE AMINOTRANSFERASE 40 U/L (3-33); ALBUMIN/GLOBULIN RATIO 1.7 (1.0-2.7); ANION GAP 17 (5-15); ASPARTATE AMINO TRANSFERASE 26 U/L (5-40); CALCIUM 8.9 mg/dL (8.6-10.2); CARBON DIOXIDE 22 mEQ/L (20-30); CHLORIDE 105 mEQ/L (98-107); CREATININE 1.1 mg/dL (0.5-0.9); GLOMERULAR FILTRATION RATE > 60 mL/min (>60); HEMOLYSIS 6; POTASSIUM 4.2 mEQ/L (3.4-4.9); SODIUM 144 mEQ/L (135-145); TOTAL PROTEIN 5.8 g/dL (6.6-8.7)
[2016-09-29 22:55] VITALS: BP 170/136
--- NOTE | 2016-09-29 23:08 | Emergency Room Report ---
History of Present Illness General Chief Complaint: Dyspnea/Respdistress Source: Patient Present Illness HPI 56-year-old female presents ED for evaluation. Patient states since yesterday she's had chest pain and shortness of breath. Pain was sharp, midsternal, 8/10 , nonradiating. No aggravating or relieving factors. Patient denies any chest pain at this time. Patient has history of atrial fibrillation. Patient is well -known to [facility] and spent here multiple times for chest pain and hypertension. Patient has known history of cocaine use. Patient admits to cocaine use recently. Denies any other drug use. No other aggravating relieving factors. Denies any other associated Allergies: Coded Allergies: SULFA (SULFONAMIDE ANTIBIOTICS) (Unverified Allergy, Unknown, 03/29/14) Patient History Past Medical History: HTN, COPD Past Surgical History: none Pertinent Family History: none Social History: Denies: alcohol use, drug use, smoking Last Menstrual Period: unknown Now: No Immunizations: UTD Reviewed Nursing Documentation: PMH: Agreed, PSxH: Agreed Nursing Documentation-PMH Hx Cardiac Problems: Yes Hx Hypertension: Yes Hx Pacemaker: No Hx COPD: Yes Hx Cancer: No Hx Gastrointestinal Problems: No Hx Neurological Problems: No Review of Systems All Other Systems: negative except mentioned in HPI Physical Exam Vital Signs Date Time Temp Pulse Resp B/P Pulse Ox O2 Delivery O2 Flow Rate FiO2 09/29/16 20:31 98.4 126 20 191/115 100 Nasal Cannula 2.0 Sp02 EP Interpretation: reviewed, normal General Appearance: no apparent distress, alert, GCS 15, non-toxic Head: normocephalic, atraumatic Eyes: bilateral eye PERRL, bilateral eye normal inspection ENT: hearing grossly normal, normal pharynx, no angioedema, normal voice Neck: full range of motion, supple/symm/no masses Respiratory: chest non-tender, lungs clear, normal breath sounds, speaking full sentences Cardiovascular #1: regular rate, rhythm, no edema Cardiovascular #2: 2+ carotid (R), 2+ carotid (L), 2+ radial (R), 2+ radial (L) , 2+ dorsalis pedis (R), 2+ dorsalis pedis (L) Gastrointestinal: normal bowel sounds, non tender, soft, non-distended, no guarding, no rebound Rectal: deferred Genitourinary: normal inspection, no CVA tenderness Musculoskeletal: back normal, gait/station normal, normal range of motion, non- tender Neurologic: alert, oriented x3, responsive, motor strength/tone normal, sensory intact, speech normal Psychiatric: judgement/insight normal, memory normal, mood/affect normal, no suicidal/homicidal ideation Reflexes: 3+ bicep (R), 3+ bicep (L), 3+ tricep (R), 3+ tricep (L), 3+ knee (R) , 3+ knee (L) Skin: normal color, no rash, warm/dry, well hydrated Lymphatic: no adenopathy Medical Decision Making Diagnostic Impression: Primary Impression: Hypertensive emergency Additional Impressions: Drug abuse Afib Qualified Codes: I48.91 - Unspecified atrial fibrillation CHF (congestive heart failure) Qualified Codes: I50.21 - Acute systolic (congestive) heart failure ER Course Hospital Course 56-year-old female presents ED complaining of chest pain, shortness of breath, elevated BP Differential diagnoses include: [place]/unstable angina, ACS/[place], hyperkalemia hypertensive urgency Clinical course Patient placed on stretcher. on court monitor. After initial history and physical I ordered labs, EKG, chest x-ray labs reviewed- no leukocytosis, hemoglobin/hematocrit stable, electrolytes okay , troponins negative. BNP > 4000 Chest x-ray- cardiomegaly EKG - afib wtih RVR. no acute ischemic changes Patient given Cardizem with cardioversion achieved. Patient remains hypertensive Patient required multiple rounds of BP meds to get BP under control. Case discussed with Dr. Quezada and he agreed to accept the patient to his service for further care and support I. I feel this is a highly complex case requiring extensive working including EKG/Rhythm strip, Xray/CT/US, Blood/urine lab work, repeat exams while in ED, and administration of strong opiates/narcotics for pain control, admission to hospital or close patient follow up. Diagnosis - hypertensive urgency, atrial fibrillation, CHF, drug abuse admitted to telemetry in serious condition Labs Test 09/29/16 20:44 White Blood Count 9.8 K/UL (4.8-10.8) Red Blood Count 5.12 M/UL (4.20-5.40) Hemoglobin 14.0 G/DL (12.0-16.0) Hematocrit 44.1 % (37.0-47.0) Mean Corpuscular Volume 86 FL (80-99) Mean Corpuscular Hemoglobin 27.4 PG (27.0-31.0) Mean Corpuscular Hemoglobin Concent 31.8 G/DL (32.0-36.0) Red Cell Distribution Width 15.8 % (11.6-14.8) Platelet Count 111 K/UL (150-450) Mean Platelet Volume 9.9 FL (6.5-10.1) Neutrophils (%) (Auto) 76.7 % (45.0-75.0) Lymphocytes (%) (Auto) 13.8 % (20.0-45.0) Monocytes (%) (Auto) 7.7 % (1.0-10.0) Eosinophils (%) (Auto) 0.9 % (0.0-3.0) Basophils (%) (Auto) 0.9 % (0.0-2.0) Sodium Level 144 mEQ/L (135-145) Potassium Level 4.2 mEQ/L (3.4-4.9) Chloride Level 105 mEQ/L (98-107) Carbon Dioxide Level 22 mEQ/L (20-30) Anion Gap 17 (5-15) Blood Urea Nitrogen 16 mg/dL (7-23) Creatinine 1.1 mg/dL (0.5-0.9) Estimat Glomerular Filtration Rate > 60 mL/min (>60) Glucose Level 104 mg/dL (74-106) Calcium Level 8.9 mg/dL (8.6-10.2) Total Bilirubin 0.4 mg/dL (0.0-1.2) Aspartate Amino Transf (AST/SGOT) 26 U/L (5-40) Alanine Aminotransferase (ALT/SGPT) 40 U/L (3-33) Alkaline Phosphatase 107 U/L (35-104) Total Creatine Kinase 30 U/L (26-140) Creatine Kinase MB < 1.5 ng/mL (< 3.8) Creatine Kinase MB Relative Index 5.0 Troponin I < 0.30 ng/mL (<=0.30) Pro-B-Type Natriuretic Peptide 4430 pg/mL (0-125) Total Protein 5.8 g/dL (6.6-8.7) Albumin 3.7 g/dL (3.5-5.2) Globulin 2.1 g/dL Albumin/Globulin Ratio 1.7 (1.0-2.7) EKG Diagnostic Results Rate: tachycardiac Rhythm: other - atrial fibrillation ST Segments: no acute changes ASA given to the pt in ED: Yes Rhythm Strip Diag. Results EP Interpretation: yes Rhythm: no PVC's, no ectopy Chest X-Ray Diagnostic Results EP Interpretation: Yes Findings: no pneumothorax, no acute cardiopulmonary disease, other - cardiomegaly Number of Views: 1 Last Vital Signs Date Time Temp Pulse Resp B/P Pulse Ox O2 Delivery O2 Flow Rate FiO2 09/29/16 22:55 98.1 98 30 170/136 100 Nasal Cannula 1.0 Status: improved Disposition: [facility] Condition: Serious [facility]errals: [facility] NEGRO GALLARDO (PCP) GENE TROTTER M.D. Sep 29, 2016 23:08
[2016-09-29 23:15] VITALS: BP 141/140
[2016-09-29] MEDS ORDERED: Nitroglycerin Patch 0.4mg TDERMAL SCH (23:45)
[2016-09-29] MEDS ORDERED: Nitroglycerin Subl 0.4mg tab (Bottle Of 25) SL PRN (23:45)
[2016-09-29] MEDS ORDERED: Labetalol 5mg/ml 20ml vial IV PRN (23:45)
[2016-09-29] MEDS ORDERED: Miralax 17gm pkt ORAL PRN (23:45)
[2016-09-29] MEDS ORDERED: Enalaprilat 2.5mg/2ml Inj IV ONE (23:45)
[2016-09-29] MEDS ORDERED: Enalaprilat 2.5mg/2ml Inj IV PRN (23:45)
[2016-09-29] MEDS ORDERED: DuoNeb 0.5-3(2.5)mg/3ml neb HHN PRN (23:45)
[2016-09-29] MEDS ORDERED: Diltiazem 25mg/5ml IV PRN (23:45)
[2016-09-30] VITALS (8 sets, daily range): BP systolic 108–172; BP diastolic 65–125
[2016-09-30] MEDS ORDERED: Nitroglycerin 2% oint pkt TOPIC ONE
[2016-09-30] MEDS: HydrALAZINE 50mg tab ORAL SCH ×3 (06:15→21:26)
[2016-09-30 07:11] LABS: INR 1.7 (0.9-1.1); PROTHROMBIN TIME 17.9 SEC (9.30-11.50)
[2016-09-30 07:13] LABS: BASOPHILS % (AUTO) 1.4 % (0.0-2.0); EOSINOPHILS % (AUTO) 0.9 % (0.0-3.0); LYMPHOCYTES % (AUTO) 13.9 % (20.0-45.0); MEAN CORPUSCULAR HEMOGLOBIN 28.5 PG (27.0-31.0); MEAN CORPUSCULAR HGB CONC 33.6 G/DL (32.0-36.0); MEAN CORPUSCULAR VOLUME 85 FL (80-99); MEAN PLATELET VOLUME 9.7 FL (6.5-10.1); MONOCYTES % (AUTO) 7.7 % (1.0-10.0); NEUTROPHILS % (AUTO) 76.2 % (45.0-75.0); PLATELET COUNT 115 K/UL (150-450); RED BLOOD COUNT 5.08 M/UL (4.20-5.40); RED CELL DISTRIBUTION WIDTH 15.5 % (11.6-14.8); WHITE BLOOD COUNT 8.7 K/UL (4.8-10.8)
[2016-09-30 07:27] LABS: TROPONIN I < 0.30 ng/mL (<=0.30)
[2016-09-30 07:40] LABS: CHOLESTEROL/HDL RATIO 3.9 (3.3-4.4); CRP QUANT 0.7 mg/dL (< 0.5)
[2016-09-30 07:41] LABS: THYROID STIMULATING HORMONE 0.251 uIU/mL (0.300-4.500)
[2016-09-30] MEDS ORDERED: Carvedilol 6.25mg Tab ORAL SCH ×2 (09:00)
[2016-09-30] MEDS: Lisinopril 10mg tab ORAL SCH ×2 (09:00→17:09)
[2016-09-30] MEDS: Carvedilol 25mg Tab ORAL SCH ×2 (09:00→21:26)
[2016-09-30] MEDS: Furosemide 40mg tab ORAL SCH (09:00)
[2016-09-30] MEDS ORDERED: Heparin 5000 units/ml inj SUBQ SCH (09:00)
--- NOTE | 2016-09-30 10:41 | Diagnostic Imaging Report ---
Indications: Chest pain Technique: Portable AP chest Findings: Comparison: 09/14/2016 Inspiratory effort has decreased. Size of the cardiac silhouette has apparently increased. Pulmonary vasculature remains within normal limits. Mild diffuse bilateral interstitial prominence persists. Linear densities persist in right lung base. No pleural abnormality. Aortic arch calcification, mild elongation again noted. IMPRESSION: Stable bilateral interstitial infiltrates, nonspecific, may represent edema, interstitial pneumonitis, or chronic disease Apparent increase in heart size may be technically related Persistent subsegmental atelectasis right lung base
--- NOTE | 2016-09-30 13:29 | History and Physical ---
History of Present Illness General Date patient seen: Sep 30, 2016 Reason for Hospitalization: Dyspnea/Respdistress Present Illness HPI 56-year-old female with hx of afib, htn, afib, cocain abuse presents to ED with CC of chest pain and shortness of breath. Pain was sharp, midsternal, 8/ 10, nonradiating. Her SBP was 190 in ER. She is admitted to telemetry for hypertensive emergency and ACS. Allergies: Coded Allergies: SULFA (SULFONAMIDE ANTIBIOTICS) (Unverified Allergy, Unknown, 03/29/14) Medication History Scheduled Albuterol Sulfate* (Proair Hfa*), 1 PUFF INH Q6H Carvedilol (Coreg), 25 MG ORAL Q12HR Diltiazem Hcl* (Cardizem*), 60 MG ORAL EVERY 8 HOURS Ferrous Sulfate* (Ferrous Sulfate*), 325 MG ORAL DAILY, (Reported) Fluticasone/Salmeterol (Advair 250-50 Diskus), 1 PUFF INH EVERY 12 HOURS Furosemide* (Lasix*), 40 MG ORAL DAILY, (Reported) Hydralazine HCl (Hydralazine HCl), 50 MG ORAL EVERY 8 HOURS Warfarin Sod* (Coumadin*), 4 MG ORAL COUMADIN Discontinued Medications Carvedilol (Coreg), 6.25 MG ORAL EVERY 12 HOURS Discontinued Reason: Medication dose changed Carvedilol* (Carvedilol*), 12.5 MG ORAL BID, (Reported) Discontinued Reason: Medication dose changed Diltiazem Hcl* (Cardizem*), 60 MG ORAL EVERY 8 HOURS Discontinued Reason: Medication dose changed Hydralazine Hcl* (Hydralazine Hcl*), 50 MG ORAL EVERY 6 HOURS, (Reported) Discontinued Reason: Medication dose changed Levofloxacin* (Levaquin*), 500 MG ORAL DAILY Discontinued Reason: Therapy completed Lisinopril* (Lisinopril*), 10 MG ORAL BID Discontinued Reason: Pt stopped taking med Methylprednisolone* (Medrol*), 4 MG ORAL DAILY Discontinued Reason: Pt stopped taking med Patient History Healthcare decision maker Resuscitation status Full Code Advanced Directive on File Past Medical/Surgical History Past Medical/Surgical History: (1) Afib (2) Cocaine abuse (3) HTN (hypertension) (4) CHF (congestive heart failure) (5) COPD (chronic obstructive pulmonary disease) Review of Systems Cardiovascular: Reports: chest pain, palpitations Physical Exam Lines, tubes and drains: peripheral, central line HEENT: normocephalic, atraumatic Neck: non-tender, normal alignment Respiratory/Chest: chest wall non-tender, lungs clear Cardiovascular/Chest: normal rate Last 24 Hour Vital Signs Date Time Temp Pulse Resp B/P Pulse Ox O2 Delivery O2 Flow Rate FiO2 09/30/16 12:00 98.1 89 18 139/99 99 Nasal Cannula 2.0 09/30/16 12:00 98.1 89 18 139/99 99 Room Air 09/30/16 09:00 96 108/65 09/30/16 09:00 108/65 09/30/16 08:00 97.7 96 18 108/65 98 Nasal Cannula 2.0 09/30/16 08:00 66 09/30/16 07:53 Nasal Cannula 2.0 28 09/30/16 07:52 99 Nasal Cannula 2.0 28 09/30/16 07:50 76 18 Nasal Cannula 2.0 28 09/30/16 06:15 150/102 09/30/16 06:15 105 150/102 09/30/16 04:03 98.6 92 20 146/102 100 Nasal Cannula 2.0 09/30/16 04:00 109 09/30/16 01:30 110 159/105 09/30/16 01:13 97 Nasal Cannula 2.0 28 09/30/16 01:13 98 19 Nasal Cannula 2.0 28 09/30/16 01:13 Nasal Cannula 2.0 28 09/30/16 00:42 97.9 105 19 172/113 97 Nasal Cannula 2.0 09/30/16 00:10 98.0 102 25 172/125 100 Nasal Cannula 2.0 09/30/16 00:05 98.0 102 25 172/125 100 Nasal Cannula 2.0 09/30/16 00:00 191/136 09/29/16 23:59 191/136 09/29/16 23:31 171/137 09/29/16 23:15 98.0 107 27 141/140 100 Nasal Cannula 1.0 09/29/16 22:55 98.1 98 30 170/136 100 Nasal Cannula 1.0 09/29/16 22:43 170/136 09/29/16 21:47 126 193/155 09/29/16 21:30 112 28 193/155 100 Nasal Cannula 2.0 09/29/16 20:45 98.0 113 28 121/106 100 Nasal Cannula 2.0 09/29/16 20:45 113 28 Nasal Cannula 2.0 09/29/16 20:31 98.4 126 20 191/115 100 Nasal Cannula 2.0 Intake and Output 09/29/16 09/30/16 19:00 07:00 Intake Total 500 ml Output Total 5950 ml Balance -5450 ml Intake Oral 0 ml IV Total 500 ml Output Urine Total 5950 ml # Voids 10 Laboratory Tests Test 09/29/16 20:44 09/30/16 05:35 White Blood Count 9.8 K/UL (4.8-10.8) 8.7 K/UL (4.8-10.8) Red Blood Count 5.12 M/UL (4.20-5.40) 5.08 M/UL (4.20-5.40) Hemoglobin 14.0 G/DL (12.0-16.0) 14.5 G/DL (12.0-16.0) Hematocrit 44.1 % (37.0-47.0) 43.1 % (37.0-47.0) Mean Corpuscular Volume 86 FL (80-99) 85 FL (80-99) Mean Corpuscular Hemoglobin 27.4 PG (27.0-31.0) 28.5 PG (27.0-31.0) Mean Corpuscular Hemoglobin Concent 31.8 G/DL (32.0-36.0) L 33.6 G/DL (32.0-36.0) Red Cell Distribution Width 15.8 % (11.6-14.8) H 15.5 % (11.6-14.8) H Platelet Count 111 K/UL (150-450) L 115 K/UL (150-450) L Mean Platelet Volume 9.9 FL (6.5-10.1) 9.7 FL (6.5-10.1) Neutrophils (%) (Auto) 76.7 % (45.0-75.0) H 76.2 % (45.0-75.0) H Lymphocytes (%) (Auto) 13.8 % (20.0-45.0) L 13.9 % (20.0-45.0) L Monocytes (%) (Auto) 7.7 % (1.0-10.0) 7.7 % (1.0-10.0) Eosinophils (%) (Auto) 0.9 % (0.0-3.0) 0.9 % (0.0-3.0) Basophils (%) (Auto) 0.9 % (0.0-2.0) 1.4 % (0.0-2.0) Sodium Level 144 mEQ/L (135-145) Potassium Level 4.2 mEQ/L (3.4-4.9) Chloride Level 105 mEQ/L (98-107) Carbon Dioxide Level 22 mEQ/L (20-30) Anion Gap 17 (5-15) H Blood Urea Nitrogen 16 mg/dL (7-23) Creatinine 1.1 mg/dL (0.5-0.9) H Estimat Glomerular Filtration Rate > 60 mL/min (>60) Glucose Level 104 mg/dL (74-106) Calcium Level 8.9 mg/dL (8.6-10.2) Total Bilirubin 0.4 mg/dL (0.0-1.2) Aspartate Amino Transf (AST/SGOT) 26 U/L (5-40) Alanine Aminotransferase (ALT/SGPT) 40 U/L (3-33) H Alkaline Phosphatase 107 U/L (35-104) H Total Creatine Kinase 30 U/L (26-140) Creatine Kinase MB < 1.5 ng/mL (< 3.8) Creatine Kinase MB Relative Index 5.0 Troponin I < 0.30 ng/mL (<=0.30) < 0.30 ng/mL (<=0.30) Pro-B-Type Natriuretic Peptide 4430 pg/mL (0-125) H Total Protein 5.8 g/dL (6.6-8.7) L Albumin 3.7 g/dL (3.5-5.2) Globulin 2.1 g/dL Albumin/Globulin Ratio 1.7 (1.0-2.7) Prothrombin Time 17.9 SEC (9.30-11.50) H Prothromb Time International Ratio 1.7 (0.9-1.1) H Activated Partial Thromboplast Time 32 SEC (23-33) C-Reactive Protein, Quantitative 0.7 mg/dL (< 0.5) H Triglycerides Level 67 mg/dL (< 150) Cholesterol Level 121 mg/dL (< 200) LDL Cholesterol 77 mg/dL (60-99) HDL Cholesterol 31 mg/dL (> 60) Cholesterol/HDL Ratio 3.9 (3.3-4.4) Thyroid Stimulating Hormone (TSH) 0.251 uIU/mL (0.300-4.500) Height (Feet): 5 Height (Inches): 7.00 Weight (Pounds): 146 Medications Current Medications Medications (Trade) Dose Ordered Sig/Ruben Route PRN Reason Start Time Stop Time Status Last Admin Dose Admin Acetaminophen (Tylenol) 650 mg Q4H PRN ORAL FEVER 09/29/16 23:45 10/29/16 23:44 Albuterol/ Ipratropium (DuoNeb 0.5-3(2.5)mg/3ml) 3 ml Q4H PRN HHN Shortness of Breath 09/29/16 23:45 10/04/16 23:44 Carvedilol (Coreg) 25 mg EVERY 12 HOURS ORAL 09/30/16 09:00 10/30/16 08:59 Diltiazem HCl (Cardizem) 10 mg Q1H PRN IV heart rate more than 120, 09/29/16 23:45 10/29/16 23:44 Diltiazem HCl (Cardizem) 60 mg EVERY 8 HOURS ORAL 09/30/16 06:00 10/30/16 05:59 09/30/16 06:15 Enalaprilat (Vasotec) 2.5 mg Q6H PRN IV sbp more than 160 09/29/16 23:45 10/29/16 23:44 Furosemide (Lasix) 40 mg DAILY ORAL 09/30/16 09:00 10/30/16 08:59 Hydralazine HCl (Apresoline) 50 mg EVERY 8 HOURS ORAL 09/30/16 06:00 10/30/16 05:59 09/30/16 06:15 Labetalol HCl (Normodyne) 20 mg Q1H PRN IV sbp more than 160 09/29/16 23:45 10/29/16 23:44 Lisinopril (Zestril) 10 mg BID ORAL 09/30/16 09:00 10/30/16 08:59 Nitroglycerin (Ntg) 0.4 mg Q5M PRN SL Prn Chest Pain 09/29/16 23:45 10/29/16 23:44 Ondansetron HCl (Zofran) 4 mg Q6H PRN IVP Nausea & Vomiting 09/29/16 23:45 10/29/16 23:44 Pantoprazole (Protonix) 40 mg DAILY ORAL 09/30/16 09:00 10/30/16 08:59 09/30/16 08:40 Polyethylene Glycol (Miralax) 17 gm DAILYPRN PRN ORAL Constipation 09/29/16 23:45 10/29/16 23:44 Temazepam (Restoril) 15 mg HSPRN PRN ORAL Insomnia 09/29/16 23:45 10/06/16 23:44 Warfarin Sodium (Coumadin) 4 mg COUMADIN ORAL 09/30/16 17:00 10/30/16 16:59 Assessment/Plan Problem List: (1) Hypertensive emergency ICD Codes: I10 - Essential (primary) hypertension SNOMED: 825960385 (2) Afib ICD Codes: I48.91 - Unspecified atrial fibrillation SNOMED: 54638448 Qualifiers: Qualified Codes: I48.91 - Unspecified atrial fibrillation (3) COPD (chronic obstructive pulmonary disease) ICD Codes: J44.9 - Chronic obstructive pulmonary disease, unspecified SNOMED: 57453332 (4) HTN (hypertension) ICD Codes: I10 - Essential (primary) hypertension SNOMED: 70375034 (5) Cocaine abuse ICD Codes: F14.10 - Cocaine abuse, uncomplicated SNOMED: 24661589, [id number] Assessment/Plan serial EKG, troponin monitor heart rate cardio evaluation CANDIDO MARQUES Sep 30, 2016 13:29
[2016-09-30] MEDS: Warfarin Sodium 4mg ORAL SCH (16:43)
--- NOTE | 2016-09-30 20:47 | Cardiology Progress Note ---
Assessment/Plan Assessment/Plan safib permanent copd with exacerbation tachy cociane abuse tobaco abuse MR ? chf componenet diuretic low dose wathc bp acie anticaougaltion with coumadin no bb due to copd and cocain abuse bp allwo use of cardizem for hr control [id number] Objective Last 24 Hour Vital Signs Date Time Temp Pulse Resp B/P Pulse Ox O2 Delivery O2 Flow Rate FiO2 09/30/16 19:00 100 18 Nasal Cannula 2.0 28 09/30/16 19:00 Nasal Cannula 2.0 28 09/30/16 19:00 98 Nasal Cannula 2.0 28 09/30/16 17:09 145/98 09/30/16 16:00 97.5 102 21 145/98 98 Nasal Cannula 2.0 09/30/16 14:26 139/99 09/30/16 14:25 89 139/99 09/30/16 12:00 98.1 89 18 139/99 99 Nasal Cannula 2.0 09/30/16 12:00 98.1 89 18 139/99 99 Room Air 09/30/16 09:00 96 108/65 09/30/16 09:00 108/65 09/30/16 08:00 97.7 96 18 108/65 98 Nasal Cannula 2.0 09/30/16 08:00 66 09/30/16 07:53 Nasal Cannula 2.0 09/30/16 07:52 99 Nasal Cannula 2.0 09/30/16 07:50 76 18 Nasal Cannula 2.0 09/30/16 06:15 150/102 09/30/16 06:15 105 150/102 09/30/16 04:03 98.6 92 20 146/102 100 Nasal Cannula 2.0 09/30/16 04:00 109 09/30/16 01:30 110 159/105 09/30/16 01:13 97 Nasal Cannula 2.0 28 09/30/16 01:13 98 19 Nasal Cannula 2.0 28 09/30/16 01:13 Nasal Cannula 2.0 28 09/30/16 00:42 97.9 105 19 172/113 97 Nasal Cannula 2.0 09/30/16 00:10 98.0 102 25 172/125 100 Nasal Cannula 2.0 09/30/16 00:05 98.0 102 25 172/125 100 Nasal Cannula 2.0 09/30/16 00:00 191/136 09/29/16 23:59 191/136 09/29/16 23:31 171/137 09/29/16 23:15 98.0 107 27 141/140 100 Nasal Cannula 1.0 09/29/16 22:55 98.1 98 30 170/136 100 Nasal Cannula 1.0 09/29/16 22:43 170/136 09/29/16 21:47 126 193/155 09/29/16 21:30 112 28 193/155 100 Nasal Cannula 2.0 Intake and Output 09/29/16 09/30/16 19:00 07:00 Intake Total 500 ml Output Total 5950 ml Balance -5450 ml Intake Oral 0 ml IV Total 500 ml Output Urine Total 5950 ml # Voids 10 Laboratory Tests Test 09/30/16 05:35 White Blood Count 8.7 K/UL (4.8-10.8) Red Blood Count 5.08 M/UL (4.20-5.40) Hemoglobin 14.5 G/DL (12.0-16.0) Hematocrit 43.1 % (37.0-47.0) Mean Corpuscular Volume 85 FL (80-99) Mean Corpuscular Hemoglobin 28.5 PG (27.0-31.0) Mean Corpuscular Hemoglobin Concent 33.6 G/DL (32.0-36.0) Red Cell Distribution Width 15.5 % (11.6-14.8) H Platelet Count 115 K/UL (150-450) L Mean Platelet Volume 9.7 FL (6.5-10.1) Neutrophils (%) (Auto) 76.2 % (45.0-75.0) H Lymphocytes (%) (Auto) 13.9 % (20.0-45.0) L Monocytes (%) (Auto) 7.7 % (1.0-10.0) Eosinophils (%) (Auto) 0.9 % (0.0-3.0) Basophils (%) (Auto) 1.4 % (0.0-2.0) Prothrombin Time 17.9 SEC (9.30-11.50) H Prothromb Time International Ratio 1.7 (0.9-1.1) H Activated Partial Thromboplast Time 32 SEC (23-33) Troponin I < 0.30 ng/mL (<=0.30) C-Reactive Protein, Quantitative 0.7 mg/dL (< 0.5) H Triglycerides Level 67 mg/dL (< 150) Cholesterol Level 121 mg/dL (< 200) LDL Cholesterol 77 mg/dL (60-99) HDL Cholesterol 31 mg/dL (> 60) Cholesterol/HDL Ratio 3.9 (3.3-4.4) Thyroid Stimulating Hormone (TSH) 0.251 uIU/mL (0.300-4.500) DAWNA GURROLA Sep 30, 2016 20:47
--- NOTE | 2016-09-30 23:37 | Consultation ---
DATE OF CONSULTATION: 09/30/2016 CARDIOLOGY CONSULTATION: CONSULTING PHYSICIAN: Yao Suazo M.D. REFERRING PHYSICIAN: Enid Quezada M.D. REASON FOR EVALUATION: Palpitation and shortness of breath. HISTORY OF PRESENT ILLNESS: This is a middle-aged female, who was recently hospitalized and discharged from the hospital, who is here with history of atrial fibrillation, and who tells me that after she left the hospital, she used crack cocaine. She used on several occasions crack cocaine, last time approximately four days ago. She started smoking again and started getting short of breath, cough, and wheezing. The patient also has pain and left-sided chest pressure, when she moves suddenly and suddenly turns. She has orthopnea. She has no PND. Occasional dizziness, lightheadedness, and occasional palpitations are noted. PAST MEDICAL HISTORY: Positive for history of COPD, permanent atrial fibrillation, hypertension, cocaine abuse, history of congestive heart failure, significant mitral regurgitation, and the patient during the last hospitalization, where she was to be seen by a paper products printer, was started on anticoagulation with Coumadin and was told to follow up with a paper products printer, which she never did and she now presented to the hospital because of constellation of symptoms and appears to be quite uncomfortable because of shortness of breath. Positive for history of also cocaine-induced cardiac abnormality and congestive heart failure as well and hypertension. ALLERGIC: She is allergic to sulfa. SOCIAL HISTORY: As mentioned, she does smoke and use drugs. REVIEW OF SYSTEMS: Gastrointestinal: She has had constipation, but she did have bowel movements. Genitourinary: Negative. Pulmonary: Positive for coughing and wheezing. Constitutional: No fever or chills. PHYSICAL EXAMINATION: GENERAL: Shows to be an elderly female with rapid breathing and she is able to talk in relatively short sentences. NECK: Supple. LUNGS: Show inspiratory and expiratory wheezes and some rhonchi. CARDIAC: Irregularly irregular and tachycardic. ABDOMEN: Soft and nontender. Positive bowel sounds. EXTREMITIES: There is no clubbing, cyanosis, nor is there any edema. DIAGNOSTIC DATA: EKG shows atrial fibrillation and rapid ventricular response at 114. Telemetry shows atrial fibrillation. LABORATORY DATA: Her blood test most recently showed white count of 8.7, hemoglobin 14.7, and platelet count 115,000. Sodium is 144, potassium 4.2, chloride 105, bicarbonate 22, BUN 16, creatinine 1.1, and glucose of 104. Troponin on two separate occasions is normal. ProBNP only is 4400. TSH is 0.251 and this is lower than the prior level 0.307 and her coagulations, INR was 1.7. Toxicology screen is positive for cocaine . Chest x-ray was performed yesterday and it was read as bilateral interstitial infiltrate, nonspecific pneumonitis, and normal heart size. ASSESSMENT: 1. Permanent atrial fibrillation and tachycardia secondary to cocaine abuse. 2. Mitral regurgitation. 3. Substance abuse. 4. Chronic obstructive pulmonary disease with acute exacerbation. RECOMMENDATIONS: Dr. Quezada, this patient was seen in cardiac consultation. The patient obviously has cocaine abuse and has been tachycardiac with atrial fibrillation being permanent. At the present time, with the chronic obstructive pulmonary disease, it is difficult to control heart rate and the cardiac enzymes are negative. She may have some component of congestive heart failure of a significant degree. Continue management for chronic obstructive pulmonary disease with the medications and I will follow her along. We may administer low-dose of intravenous Lasix in light of her component of heart failure, in fact she is with elevated blood pressure and tachycardia. She may have a component of heart failure secondary to tachycardia as well as mitral regurgitation and _ this is quite okay before she should be treated chronic obstructive pulmonary disease with exacerbation with antibiotics and for heart rate control, beta-blockers cannot be given in light of the fact that she has chronic obstructive pulmonary disease as well as the fact that she has used cocaine. I will follow her along with you. We will use Cardizem for her heart rate control in the interim. Yao Suazo M.D. DR: Avelino JOB#: [id number] CC:
[2016-10-01 00:19] VITALS: BP 146/102
[2016-10-01 04:03] VITALS: BP 153/104
[2016-10-01] MEDS: HydrALAZINE 50mg tab ORAL SCH ×2 (06:12→14:36)
[2016-10-01 08:00] VITALS: BP 133/93
[2016-10-01 08:19] LABS: INR 1.4 (0.9-1.1); PROTHROMBIN TIME 14.7 SEC (9.30-11.50)
[2016-10-01 08:30] LABS: TROPONIN I < 0.30 ng/mL (<=0.30)
[2016-10-01 08:48] LABS: ANION GAP 13 (5-15); CALCIUM 8.9 mg/dL (8.6-10.2); CARBON DIOXIDE 28 mEQ/L (20-30); CHLORIDE 103 mEQ/L (98-107); CREATININE 0.8 mg/dL (0.5-0.9); GLOMERULAR FILTRATION RATE > 60 mL/min (>60); HEMOLYSIS 3; MAGNESIUM 1.6 mg/dL (1.7-2.5); POTASSIUM 3.7 mEQ/L (3.4-4.9); SODIUM 144 mEQ/L (135-145)
[2016-10-01] MEDS: Furosemide 40mg tab ORAL SCH (08:49)
[2016-10-01] MEDS: Lisinopril 10mg tab ORAL SCH ×2 (08:49→18:44)
[2016-10-01] MEDS: Carvedilol 25mg Tab ORAL SCH (08:50)
[2016-10-01 12:00] VITALS: BP 126/77
--- NOTE | 2016-10-01 13:27 | Cardiology Progress Note ---
Assessment/Plan Assessment/Plan afib permanent copd with exacerbation tachy cocaine abuse tobaco abuse MR ? chf component diuretic low dose bp isbetter heart rate i sbetter acie anticoagulation with Coumadin no bb due to copd and cocaine abuse Cardizem for hr adn bp control seem to be getting better tele noted Subjective Cardiovascular: Denies: chest pain, lightheadedness Respiratory: Denies: shortness of breath Gastrointestinal/Abdominal: Denies: abdominal pain Genitourinary: Denies: burning Objective Last 24 Hour Vital Signs Date Time Temp Pulse Resp B/P Pulse Ox O2 Delivery O2 Flow Rate FiO2 10/01/16 12:00 98.2 64 17 126/77 95 Room Air 10/01/16 08:50 98 133/93 10/01/16 08:49 98 133/93 10/01/16 08:49 133/93 10/01/16 08:00 96.5 95 18 133/93 99 Room Air 10/01/16 08:00 86 10/01/16 07:41 98 18 Nasal Cannula 2.0 28 10/01/16 07:41 Nasal Cannula 2.0 28 10/01/16 07:41 98 Nasal Cannula 2.0 28 10/01/16 06:12 153/104 10/01/16 04:03 99.4 85 18 153/104 98 Nasal Cannula 2.0 10/01/16 04:00 86 10/01/16 01:59 87 146/102 10/01/16 00:19 99.0 87 19 146/102 99 Nasal Cannula 2.0 10/01/16 00:00 100 09/30/16 21:26 88 152/105 09/30/16 21:26 152/105 09/30/16 20:00 98.1 88 19 152/105 Nasal Cannula 2.0 97 09/30/16 20:00 87 09/30/16 19:00 100 18 Nasal Cannula 2.0 28 09/30/16 19:00 Nasal Cannula 2.0 28 09/30/16 19:00 98 Nasal Cannula 2.0 28 09/30/16 17:09 145/98 09/30/16 16:00 98 09/30/16 16:00 97.5 102 21 145/98 98 Nasal Cannula 2.0 09/30/16 14:26 139/99 09/30/16 14:25 89 139/99 General Appearance: no apparent distress Neck: supple Cardiovascular: irregularly irregular Respiratory/Chest: expiratory wheezing Abdomen: normal bowel sounds, non tender, soft Extremities: no swelling Intake and Output 09/30/16 10/01/16 19:00 07:00 Intake Total 860 ml Output Total 960 ml 2 ml Balance -100 ml -2 ml Intake Oral 860 ml Output Urine Total 960 ml 2 ml # Voids 3 3 Laboratory Tests Test 10/01/16 07:50 Prothrombin Time 14.7 SEC (9.30-11.50) H Prothromb Time International Ratio 1.4 (0.9-1.1) H Sodium Level 144 mEQ/L (135-145) Potassium Level 3.7 mEQ/L (3.4-4.9) Chloride Level 103 mEQ/L (98-107) Carbon Dioxide Level 28 mEQ/L (20-30) Anion Gap 13 (5-15) Blood Urea Nitrogen 11 mg/dL (7-23) Creatinine 0.8 mg/dL (0.5-0.9) Estimat Glomerular Filtration Rate > 60 mL/min (>60) Glucose Level 120 mg/dL (74-106) H Calcium Level 8.9 mg/dL (8.6-10.2) Magnesium Level 1.6 mg/dL (1.7-2.5) L Troponin I < 0.30 ng/mL (<=0.30) DAWNA GURROLA Oct 01, 2016 13:27
--- NOTE | 2016-10-01 15:02 | Pulmonology Progress Note ---
Assessment/Plan Problems: (1) Hypertensive emergency (2) Afib (3) COPD (chronic obstructive pulmonary disease) (4) HTN (hypertension) (5) Cocaine abuse Assessment/Plan improving respiratory treatment heart rate, bp controlled Subjective ROS Limited/Unobtainable: No Interval Events: asymptomatic Allergies: Coded Allergies: SULFA (SULFONAMIDE ANTIBIOTICS) (Unverified Allergy, Unknown, 03/29/14) Objective Last 24 Hour Vital Signs Date Time Temp Pulse Resp B/P Pulse Ox O2 Delivery O2 Flow Rate FiO2 10/01/16 14:36 126/77 10/01/16 14:35 64 126/77 10/01/16 12:00 98.2 64 17 126/77 95 Room Air 10/01/16 08:50 98 133/93 10/01/16 08:49 98 133/93 10/01/16 08:49 133/93 10/01/16 08:00 96.5 95 18 133/93 99 Room Air 10/01/16 08:00 86 10/01/16 07:41 98 18 Nasal Cannula 2.0 28 10/01/16 07:41 Nasal Cannula 2.0 28 10/01/16 07:41 98 Nasal Cannula 2.0 28 10/01/16 06:12 153/104 10/01/16 04:03 99.4 85 18 153/104 98 Nasal Cannula 2.0 10/01/16 04:00 86 10/01/16 01:59 87 146/102 10/01/16 00:19 99.0 87 19 146/102 99 Nasal Cannula 2.0 10/01/16 00:00 100 09/30/16 21:26 88 152/105 09/30/16 21:26 152/105 09/30/16 20:00 98.1 88 19 152/105 Nasal Cannula 2.0 97 09/30/16 20:00 87 09/30/16 19:00 100 18 Nasal Cannula 2.0 28 09/30/16 19:00 Nasal Cannula 2.0 28 09/30/16 19:00 98 Nasal Cannula 2.0 28 09/30/16 17:09 145/98 09/30/16 16:00 98 09/30/16 16:00 97.5 102 21 145/98 98 Nasal Cannula 2.0 Intake and Output 09/30/16 10/01/16 19:00 07:00 Intake Total 860 ml Output Total 960 ml 2 ml Balance -100 ml -2 ml Intake Oral 860 ml Output Urine Total 960 ml 2 ml # Voids 3 3 General Appearance: WD/WN HEENT: normocephalic Respiratory/Chest: chest wall non-tender, lungs clear Cardiovascular: normal peripheral pulses, normal rate Abdomen: normal bowel sounds, soft, non tender Laboratory Tests 10/01/16 07:50: Prothrombin Time 14.7H, Prothromb Time International Ratio 1.4H, Sodium Level 144, Potassium Level 3.7, Chloride Level 103, Carbon Dioxide Level 28, Anion Gap 13, Blood Urea Nitrogen 11, Creatinine 0.8, Estimat Glomerular Filtration Rate > 60, Glucose Level 120H, Calcium Level 8.9, Magnesium Level 1.6L, Troponin I < 0.30 Current Medications Medications (Trade) Dose Ordered Sig/Ruben Route PRN Reason Start Time Stop Time Status Last Admin Dose Admin Acetaminophen (Tylenol) 650 mg Q4H PRN ORAL FEVER 09/29/16 23:45 10/29/16 23:44 Albuterol/ Ipratropium (DuoNeb 0.5-3(2.5)mg/3ml) 3 ml Q4H PRN HHN Shortness of Breath 09/29/16 23:45 10/04/16 23:44 Carvedilol (Coreg) 25 mg EVERY 12 HOURS ORAL 09/30/16 09:00 10/30/16 08:59 10/01/16 08:50 Diltiazem HCl (Cardizem) 10 mg Q1H PRN IV heart rate more than 120, 09/29/16 23:45 10/29/16 23:44 Diltiazem HCl (Cardizem) 60 mg Q6H ORAL 10/01/16 02:00 10/31/16 01:59 10/01/16 14:35 Enalaprilat (Vasotec) 2.5 mg Q6H PRN IV sbp more than 160 09/29/16 23:45 10/29/16 23:44 Furosemide (Lasix) 40 mg DAILY ORAL 09/30/16 09:00 10/30/16 08:59 10/01/16 08:49 Hydralazine HCl (Apresoline) 50 mg EVERY 8 HOURS ORAL 09/30/16 06:00 10/30/16 05:59 10/01/16 14:36 Labetalol HCl (Normodyne) 20 mg Q1H PRN IV sbp more than 160 09/29/16 23:45 10/29/16 23:44 Lisinopril (Zestril) 10 mg BID ORAL 09/30/16 09:00 10/30/16 08:59 10/01/16 08:49 Nitroglycerin (Ntg) 0.4 mg Q5M PRN SL Prn Chest Pain 09/29/16 23:45 10/29/16 23:44 Ondansetron HCl (Zofran) 4 mg Q6H PRN IVP Nausea & Vomiting 09/29/16 23:45 10/29/16 23:44 Pantoprazole (Protonix) 40 mg DAILY ORAL 09/30/16 09:00 10/30/16 08:59 10/01/16 08:50 Polyethylene Glycol (Miralax) 17 gm DAILYPRN PRN ORAL Constipation 09/29/16 23:45 10/29/16 23:44 Temazepam (Restoril) 15 mg HSPRN PRN ORAL Insomnia 09/29/16 23:45 10/06/16 23:44 Warfarin Sodium (Coumadin) 4 mg COUMADIN ORAL 09/30/16 17:00 10/30/16 16:59 09/30/16 16:43 CANDIDO MARQUES Oct 01, 2016 15:02
[2016-10-01 16:00] VITALS: BP 126/77
[2016-10-01 18:44] VITALS: BP 126/77
[2016-10-01] MEDS: Warfarin Sodium 4mg ORAL SCH (18:44)
--- NOTE | 2016-10-08 17:06 | Discharge Summary ---
Discharge Summary Hospital Course Date of Admission Sep 29, 2016 at 23:25 Date of Discharge Oct 01, 2016 at 20:30 Admitting Diagnosis ACS/afib HPI Elo Menezes is a 56 year old female who was admitted on Sep 29, 2016 at 23:25 for Acute Coronary Syndrome,Atrial Fibrillation Hospital Course [id number] Discharge Discharge Disposition Patient was discharged to Home (01) Discharge Diagnoses: Olivia Colbert NP Oct 08, 2016 17:06
--- NOTE | 2016-10-08 23:29 | Discharge Summary 2 SIG ---
DATE OF ADMISSION: 09/29/2016 DATE OF DISCHARGE: 10/01/2016 SOCIAL WORK PROFESSOR: Yao Suazo M.D. BRIEF HOSPITAL COURSE: The patient is a 56-year-old female with history of atrial fibrillation, hypertension, and cocaine abuse, presented to ED complaining of chest pain and shortness of breath. Pain was described to be sharp, midsternal, 8/10 and nonradiating. On evaluation, blood pressure was elevated to 190 systolic. She was admitted to telemetry for hypertensive emergency and acute coronary syndrome. Dr. Suazo was consulted. EKG showed atrial fibrillation with rapid ventricular response. Toxicology screen was positive for cocaine. She was given low dose of Lasix as she may have component of heart failure secondary to tachycardia as well as mitral regurgitation. Chest x-ray showed bilateral interstitial infiltrates and interstitial pneumonitis. She was given respiratory treatment and anticoagulation with Coumadin. She was given Cardizem for heart rate and BP control. She was eventually discharged home. FINAL DIAGNOSES: 1. Hypertensive emergency. 2. Atrial fibrillation. 3. Chronic obstructive pulmonary disease with exacerbation. 4. Cocaine abuse. 5. Tobacco abuse. 6. Mitral regurgitation. 7. Possible acute diastolic congestive heart failure component. Enid Quezada M.D. I have been assigned to dictate discharge summary on this account and I was not involved in the patient's management. Olivia Colbert N.P. DR: SRINIVASAN JOB#: [id number] CC:
--- NOTE | 2016-10-09 13:31 | Cardiology Report ---
APPROVED REPORT EKG Measurement Heart [id number] Atrial fibrillation Voltage criteria for left ventricular hypertrophy Nonspecific T wave abnormality Prolonged QT Abnormal ECG
[2016-10-13] MEDS ORDERED: COUMADIN7.5 MG ORAL (13:29)
== END 2016-10-01 20:30 | disposition home or self-care (01) | DRG 201 ==
LOC: EMR 21:00 → EDBEDREQ 23:25 → 2E 23:25 → EDBEDREQTM 23:26 → EDBEDREQ 23:27 → 2E 09-30 00:10
DX: I48.2 Chronic atrial fibrillation (principal); I50.31 Acute diastolic (congestive) heart failure; J44.1 Chronic obstructive pulmonary disease with (acute) exacerbation; J84.89 Other specified interstitial pulmonary diseases; I16.1 Hypertensive emergency; R00.0 Tachycardia, unspecified; F14.188 Cocaine abuse with other cocaine-induced disorder; I34.0 Nonrheumatic mitral (valve) insufficiency; Z72.0 Tobacco use; Z79.01 Long term (current) use of anticoagulants; Z88.2 Allergy status to sulfonamides
CPT/HCPCS: 36415; 71010; 80048; 80053; 80061; 82550; 82553; 83735; 83880; 84443; 84484; 85025; 85610; 85730; 86140; 87081; 93005; 94664; 94760

== ENCOUNTER 2016-10-09 11:31 | Inpatient (IN) | payer MEDICAID, OTHER ==
[~2016-10-09] VITALS: Ht 170.2 cm; Wt 68.0 kg
[2016-10-09] VITALS (7 sets, daily range): BP systolic 141–185; BP diastolic 91–151
[2016-10-09] MEDS ORDERED: DuoNeb 0.5-3(2.5)mg/3ml neb HHN ONE (12:00)
[2016-10-09 12:18] LABS: APPEARANCE,URINE CLEAR; KETONES,URINE NEGATIVE (NEGATIVE); LEUKOCYTE ESTERASE ,URINE 1+ (NEGATIVE); NITRITE,URINE NEGATIVE (NEGATIVE); PH,URINE 6 (4.5-8.0); PROTEIN,URINE 3+ (NEGATIVE); UROBILINOGEN,URINE 1 MG/DL (0.0-1.0)
[2016-10-09] MEDS ORDERED: Diltiazem 25mg/5ml IV ONE ×2 (12:30→14:45)
[2016-10-09 12:32] LABS: BACTERIA,URINE FEW /HPF; SQUAMOUS EPITHELIAL CELL,UR FEW /LPF (NONE/OCC)
[2016-10-09 12:50] LABS: BASOPHILS % (AUTO) 1.1 % (0.0-2.0); EOSINOPHILS % (AUTO) 1.9 % (0.0-3.0); LYMPHOCYTES % (AUTO) 20.5 % (20.0-45.0); MEAN CORPUSCULAR HEMOGLOBIN 26.4 PG (27.0-31.0); MEAN CORPUSCULAR HGB CONC 31.1 G/DL (32.0-36.0); MEAN CORPUSCULAR VOLUME 85 FL (80-99); MEAN PLATELET VOLUME 9.3 FL (6.5-10.1); MONOCYTES % (AUTO) 8.8 % (1.0-10.0); NEUTROPHILS % (AUTO) 67.6 % (45.0-75.0); PLATELET COUNT 168 K/UL (150-450); RED BLOOD COUNT 5.45 M/UL (4.20-5.40); RED CELL DISTRIBUTION WIDTH 15.9 % (11.6-14.8); WHITE BLOOD COUNT 6.1 K/UL (4.8-10.8)
[2016-10-09 13:01] LABS: ALANINE AMINOTRANSFERASE 21 U/L (3-33); ALBUMIN/GLOBULIN RATIO 1.5 (1.0-2.7); ANION GAP 16 (5-15); ASPARTATE AMINO TRANSFERASE 22 U/L (5-40); CARBON DIOXIDE 26 mEQ/L (20-30); CHLORIDE 100 mEQ/L (98-107); CREATININE 1.1 mg/dL (0.5-0.9); GLOMERULAR FILTRATION RATE > 60 mL/min (>60); HEMOLYSIS 5; POTASSIUM 3.5 mEQ/L (3.4-4.9); SODIUM 142 mEQ/L (135-145); TOTAL PROTEIN 5.9 g/dL (6.6-8.7)
[2016-10-09 13:02] LABS: TROPONIN I < 0.30 ng/mL (<=0.30)
--- NOTE | 2016-10-09 13:59 | Emergency Room Report ---
History of Present Illness General Chief Complaint: Dyspnea/Respdistress Source: Patient, Medical Record Present Illness HPI The patient is a 56-year-old female who presented after increased palpitations and shortness of breath. Patient had gradual onset of symptoms. Patient had similar type symptoms after using cocaine. The patient gradual onset of worsening shortness of breath. Patient denied using drugs. Patient was noted to have prior history of hypertension and atrial fibrillation. Allergies: Coded Allergies: SULFA (SULFONAMIDE ANTIBIOTICS) (Unverified Allergy, Unknown, 03/29/14) Patient History Past Medical History: see triage record : 10 Para: 5 Reviewed Nursing Documentation: PMH: Agreed, PSxH: Agreed Nursing Documentation-PMH Hx Cardiac Problems: Yes Hx Hypertension: Yes Hx Pacemaker: No Hx COPD: Yes Hx Cancer: No Hx Gastrointestinal Problems: No Hx Neurological Problems: No Review of Systems All Other Systems: negative except mentioned in HPI Physical Exam Vital Signs Date Time Temp Pulse Resp B/P Pulse Ox O2 Delivery O2 Flow Rate FiO2 10/09/16 11:48 97.5 98 16 182/136 100 Room Air 10/09/16 12:10 21 Sp02 EP Interpretation: reviewed, normal General Appearance: normal inspection, well appearing, no apparent distress, alert, GCS 15 Head: atraumatic ENT: normal ENT inspection, hearing grossly normal, normal voice Neck: normal inspection, full range of motion, supple, no bony tend Respiratory: normal inspection, no retraction, wheezing Cardiovascular #1: regular rate, rhythm, no edema Gastrointestinal: normal inspection, normal bowel sounds, non tender, soft, no guarding, no hernia Genitourinary: no CVA tenderness Musculoskeletal: normal inspection, back normal, normal range of motion Neurologic: normal inspection, alert, oriented x3, responsive, 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 Differential included but was not limited to anemia, pneumonia, pneumothorax, myocardial infarction, pericardial effusion, congestive heart failure, acidosis. Because of complexity of patient' s case laboratory testing and imaging studies were ordered.Laboratory studies showed positive urine drug screen.Patient was noted to have normal white blood count and as well as negative troponin. The patient was noted to have continued tachycardia. Patient was given IV Cardizem as well as clonidine without improvement in her heart rate. The patient's a urine drug screen showed positive for cocaine. The patient was discussed with Dr. ca for inpatient management. Laboratory Tests Test 10/09/16 12:02 10/09/16 12:30 Urine Color Yellow Urine Appearance Clear Urine pH 6 (4.5-8.0) Urine Specific [place] 1.020 (1.005-1.035) Urine Protein 3+ (NEGATIVE) H Urine Glucose (UA) Negative (NEGATIVE) Urine Ketones Negative (NEGATIVE) Urine Occult Blood 1+ (NEGATIVE) H Urine Nitrite Negative (NEGATIVE) Urine Bilirubin Negative (NEGATIVE) Urine Urobilinogen 1 MG/DL (0.0-1.0) H Urine Leukocyte Esterase 1+ (NEGATIVE) H Urine RBC 2-4 /HPF (0 - 2) H Urine WBC 2-4 /HPF (0 - 2) Urine Squamous Epithelial Cells Few /LPF (NONE/OCC) Urine Bacteria Few /HPF (NONE) Urine Opiates Screen Negative (NEGATIVE) Urine Barbiturates Screen Negative (NEGATIVE) Phencyclidine (PCP) Screen Negative (NEGATIVE) Urine Amphetamines Screen Negative (NEGATIVE) Urine Benzodiazepines Screen Negative (NEGATIVE) Urine Cocaine Screen Positive (NEGATIVE) H Urine Marijuana (THC) Screen Negative (NEGATIVE) White Blood Count 6.1 K/UL (4.8-10.8) Red Blood Count 5.45 M/UL (4.20-5.40) H Hemoglobin 14.4 G/DL (12.0-16.0) Hematocrit 46.2 % (37.0-47.0) Mean Corpuscular Volume 85 FL (80-99) Mean Corpuscular Hemoglobin 26.4 PG (27.0-31.0) L Mean Corpuscular Hemoglobin Concent 31.1 G/DL (32.0-36.0) L Red Cell Distribution Width 15.9 % (11.6-14.8) H Platelet Count 168 K/UL (150-450) Mean Platelet Volume 9.3 FL (6.5-10.1) Neutrophils (%) (Auto) 67.6 % (45.0-75.0) Lymphocytes (%) (Auto) 20.5 % (20.0-45.0) Monocytes (%) (Auto) 8.8 % (1.0-10.0) Eosinophils (%) (Auto) 1.9 % (0.0-3.0) Basophils (%) (Auto) 1.1 % (0.0-2.0) Sodium Level 142 mEQ/L (135-145) Potassium Level 3.5 mEQ/L (3.4-4.9) Chloride Level 100 mEQ/L (98-107) Carbon Dioxide Level 26 mEQ/L (20-30) Anion Gap 16 (5-15) H Blood Urea Nitrogen 16 mg/dL (7-23) Creatinine 1.1 mg/dL (0.5-0.9) H Estimate Glomerular Filtration Rate > 60 mL/min (>60) Glucose Level 124 mg/dL (74-106) H Calcium Level 9.0 mg/dL (8.6-10.2) Total Bilirubin 0.5 mg/dL (0.0-1.2) Aspartate Amino Transferase (AST) 22 U/L (5-40) Alanine Aminotransferase (ALT) 21 U/L (3-33) Alkaline Phosphatase 90 U/L (35-104) Troponin I < 0.30 ng/mL (<=0.30) Total Protein 5.9 g/dL (6.6-8.7) L Albumin 3.6 g/dL (3.5-5.2) Globulin 2.3 g/dL Albumin/Globulin Ratio 1.5 (1.0-2.7) EKG Diagnostic Results Rate: tachycardiac - 135 Rhythm: other - atrial fibrillation ST Segments: no acute changes Chest X-Ray Diagnostic Results EP Interpretation: Yes Findings: no effusion, no pneumothorax, other - cardiomegaly no infiltrate Number of Views: 1 Last Vital Signs Date Time Temp Pulse Resp B/P Pulse Ox O2 Delivery O2 Flow Rate FiO2 10/09/16 12:32 130 182/136 10/09/16 12:20 23 100 Room Air 21 10/09/16 11:57 97.5 Status: unchanged Disposition: ADMITTED INPATIENT Condition: Serious Referrals: [employer] [employer]ERRIN (PCP) Reinaldo Francois Oct 09, 2016 13:59
[2016-10-09] MEDS ORDERED: cloNIDine 0.2mg Tab ORAL ONE (15:15)
--- NOTE | 2016-10-09 15:56 | Diagnostic Imaging Report ---
Indication: SOB Technique: One view of the chest Comparison: none Findings: There is decreased interstitial congestion, although minimal congestive changes persists in the left hilum and right lung base no focal airspace consolidation. The heart is enlarged. Pleural spaces are clear. Impression: Decreased mild interstitial congestion with minimal residual. Cardiomegaly
[2016-10-09] MEDS ORDERED: Nitroglycerin 2% oint pkt TOPIC ONE (22:15)
[2016-10-10] VITALS (10 sets, daily range): BP systolic 134–195; BP diastolic 73–137
[2016-10-10] MEDS ORDERED: Morphine Sulfate 2mg/ml Inj IVP PRN (06:45)
[2016-10-10] MEDS ORDERED: Digoxin 0.5mg/2ml Inj IVP ONE (06:45)
[2016-10-10] MEDS ORDERED: Diltiazem 25mg/5ml IV PRN (06:45)
[2016-10-10] MEDS ORDERED: DuoNeb 0.5-3(2.5)mg/3ml neb HHN PRN (06:45)
[2016-10-10] MEDS ORDERED: Metoprolol 5mg/5ml Inj IVP PRN (06:45)
[2016-10-10] MEDS ORDERED: Miralax 17gm pkt ORAL PRN (06:45)
[2016-10-10] MEDS ORDERED: Ketorolac 30mg Inj IV PRN (06:45)
[2016-10-10] MEDS ORDERED: Nitroglycerin Subl 0.4mg tab (Bottle Of 25) SL PRN (07:00)
[2016-10-10] MEDS: Enalaprilat 2.5mg/2ml Inj IV PRN ×2 (07:12→13:22)
[2016-10-10] MEDS: Furosemide 40mg tab ORAL SCH (08:58)
[2016-10-10] MEDS ORDERED: Carvedilol 25mg Tab ORAL SCH (09:00)
[2016-10-10 09:10] LABS: TROPONIN I < 0.30 ng/mL (<=0.30)
--- NOTE | 2016-10-10 09:44 | History and Physical ---
History of Present Illness General Date patient seen: Oct 10, 2016 Time patient seen: 09:30 Reason for Hospitalization: Dyspnea/Respdistress Present Illness HPI 56-year-old female presented after increased palpitations and shortness of breath with gradual onset Similar symptoms in the past after using cocaine denies fever, chills denies cough, congestion, wheezing PMH significant for Afib, on Coumadin, CHF, HTN, CAD ED workup revealed AF with RVR, HR in 130-140 BP 182/135 pulse ox was stable on RA CXR with CM, but no evidence of infiltrate no leukocytosis, stable HH troponin negative urine tox screen + cocaine Patient with PMH of hypertension and atrial fibrillation. Allergies: Coded Allergies: SULFA (SULFONAMIDE ANTIBIOTICS) (Unverified Allergy, Unknown, 03/29/14) Medication History Scheduled Albuterol Sulfate* (Proair Hfa*), 1 PUFF INH Q6H Carvedilol (Coreg), 25 MG ORAL Q12HR Diltiazem Hcl* (Cardizem*), 60 MG ORAL EVERY 8 HOURS Ferrous Sulfate* (Ferrous Sulfate*), 325 MG ORAL DAILY, (Reported) Fluticasone/Salmeterol (Advair 250-50 Diskus), 1 PUFF INH EVERY 12 HOURS Furosemide* (Lasix*), 40 MG ORAL DAILY, (Reported) Hydralazine HCl (Hydralazine HCl), 50 MG ORAL EVERY 8 HOURS Warfarin Sod* (Coumadin*), 4 MG ORAL COUMADIN Patient History History Provided By: Patient Healthcare decision maker Resuscitation status Full Code Advanced Directive on File Past Medical/Surgical History Past Medical/Surgical History: (1) COPD (chronic obstructive pulmonary disease) (2) Cocaine abuse (3) HTN (hypertension) (4) Afib (5) CHF (congestive heart failure) (6) Bartholin's gland abscess (7) Drug abuse Review of Systems Constitutional: Reports: weakness Eye: Reports: no symptoms ENT: Reports: no symptoms Respiratory: Reports: see HPI Cardiovascular: Reports: see HPI Gastrointestinal: Reports: no symptoms Genitourinary: Reports: no symptoms Musculoskeletal: Reports: no symptoms Skin: Reports: no symptoms Psychiatric: Reports: no symptoms Neurological: Reports: no symptoms Endocrine: Reports: no symptoms Hematologic/Lymphatic: Reports: no symptoms Physical Exam General Appearance: WD/WN, no apparent distress, alert - A/A/O x 3 AA female in NAD Lines, tubes and drains: peripheral HEENT: normocephalic, atraumatic, anicteric, mucous membranes moist, PERRL Neck: supple Respiratory/Chest: lungs clear - with moderate air entry , no respiratory distress, no accessory muscle use Cardiovascular/Chest: no JVD, tachycardia, irregularly irregular - A fib on moniotr Abdomen: normal bowel sounds, non tender, soft Extremities: normal range of motion, non-tender, normal inspection, no calf tenderness, normal capillary refill Skin Exam: warm/dry Neurologic: no motor/sensory deficits, alert, oriented x 3, responsive Musculoskeletal: normal muscle bulk Last 24 Hour Vital Signs Date Time Temp Pulse Resp B/P Pulse Ox O2 Delivery O2 Flow Rate FiO2 10/10/16 08:59 79 187/104 10/10/16 07:12 168/103 10/10/16 06:57 126 10/10/16 04:00 126 10/10/16 01:30 153 10/10/16 01:10 125 177/118 10/10/16 00:00 97.9 80 16 180/91 95 Room Air 10/10/16 00:00 114 10/09/16 22:31 141/91 10/09/16 22:20 97.2 19 162/109 100 Room Air 10/09/16 22:14 97.5 121 19 141/91 100 Room Air 10/09/16 21:27 97.5 121 19 141/91 100 Room Air 21 10/09/16 19:46 97.5 110 21 160/110 100 Room Air 10/09/16 17:54 97.5 110 21 167/120 100 Room Air 10/09/16 16:01 97.5 114 32 185/151 100 Room Air 10/09/16 15:24 180/56 10/09/16 15:11 138 176/145 10/09/16 13:50 97.5 135 16 185/132 100 Room Air 10/09/16 12:32 130 182/136 10/09/16 12:20 130 23 100 Room Air 21 10/09/16 12:12 98 16 Room Air 10/09/16 12:10 135 28 Room Air 21 10/09/16 12:10 135 28 100 Room Air 21 10/09/16 12:10 21 10/09/16 11:57 97.5 16 182/136 100 Room Air 10/09/16 11:48 97.5 98 16 182/136 100 Room Air Laboratory Tests Test 10/09/16 12:02 10/09/16 12:30 10/10/16 07:35 Urine Color Yellow Urine Appearance Clear Urine pH 6 (4.5-8.0) Urine Specific [place] 1.020 (1.005-1.035) Urine Protein 3+ (NEGATIVE) H Urine Glucose (UA) Negative (NEGATIVE) Urine Ketones Negative (NEGATIVE) Urine Occult Blood 1+ (NEGATIVE) H Urine Nitrite Negative (NEGATIVE) Urine Bilirubin Negative (NEGATIVE) Urine Urobilinogen 1 MG/DL (0.0-1.0) H Urine Leukocyte Esterase 1+ (NEGATIVE) H Urine RBC 2-4 /HPF (0 - 2) H Urine WBC 2-4 /HPF (0 - 2) Urine Squamous Epithelial Cells Few /LPF (NONE/OCC) Urine Bacteria Few /HPF (NONE) Urine Opiates Screen Negative (NEGATIVE) Urine Barbiturates Screen Negative (NEGATIVE) Phencyclidine (PCP) Screen Negative (NEGATIVE) Urine Amphetamines Screen Negative (NEGATIVE) Urine Benzodiazepines Screen Negative (NEGATIVE) Urine Cocaine Screen Positive (NEGATIVE) H Urine Marijuana (THC) Screen Negative (NEGATIVE) White Blood Count 6.1 K/UL (4.8-10.8) Red Blood Count 5.45 M/UL (4.20-5.40) H Hemoglobin 14.4 G/DL (12.0-16.0) Hematocrit 46.2 % (37.0-47.0) Mean Corpuscular Volume 85 FL (80-99) Mean Corpuscular Hemoglobin 26.4 PG (27.0-31.0) L Mean Corpuscular Hemoglobin Concent 31.1 G/DL (32.0-36.0) L Red Cell Distribution Width 15.9 % (11.6-14.8) H Platelet Count 168 K/UL (150-450) Mean Platelet Volume 9.3 FL (6.5-10.1) Neutrophils (%) (Auto) 67.6 % (45.0-75.0) Lymphocytes (%) (Auto) 20.5 % (20.0-45.0) Monocytes (%) (Auto) 8.8 % (1.0-10.0) Eosinophils (%) (Auto) 1.9 % (0.0-3.0) Basophils (%) (Auto) 1.1 % (0.0-2.0) Sodium Level 142 mEQ/L (135-145) Potassium Level 3.5 mEQ/L (3.4-4.9) Chloride Level 100 mEQ/L (98-107) Carbon Dioxide Level 26 mEQ/L (20-30) Anion Gap 16 (5-15) H Blood Urea Nitrogen 16 mg/dL (7-23) Creatinine 1.1 mg/dL (0.5-0.9) H Estimat Glomerular Filtration Rate > 60 mL/min (>60) Glucose Level 124 mg/dL (74-106) H Calcium Level 9.0 mg/dL (8.6-10.2) Total Bilirubin 0.5 mg/dL (0.0-1.2) Aspartate Amino Transf (AST/SGOT) 22 U/L (5-40) Alanine Aminotransferase (ALT/SGPT) 21 U/L (3-33) Alkaline Phosphatase 90 U/L (35-104) Troponin I < 0.30 ng/mL (<=0.30) < 0.30 ng/mL (<=0.30) Total Protein 5.9 g/dL (6.6-8.7) L Albumin 3.6 g/dL (3.5-5.2) Globulin 2.3 g/dL Albumin/Globulin Ratio 1.5 (1.0-2.7) Height (Feet): 5 Height (Inches): 7.00 Weight (Pounds): 150 Medications Current Medications Medications (Trade) Dose Ordered Sig/Ruben Route PRN Reason Start Time Stop Time Status Last Admin Dose Admin Acetaminophen (Tylenol) 650 mg Q4H PRN ORAL T>100.5 10/10/16 06:45 11/09/16 06:44 Albuterol/ Ipratropium (DuoNeb 0.5-3(2.5)mg/3ml) 3 ml Q4H PRN HHN Shortness of Breath 10/10/16 06:45 10/15/16 06:44 Carvedilol (Coreg) 25 mg Q12HR ORAL 10/10/16 09:00 11/09/16 08:59 10/10/16 08:59 Digoxin (Lanoxin) 0.25 mg DAILY IVP 10/11/16 09:00 11/10/16 08:59 Diltiazem HCl (Cardizem) 10 mg EVERY HOUR PRN IV heart rate more than 120 10/10/16 06:45 11/09/16 06:44 Diltiazem HCl (Cardizem) 60 mg EVERY 8 HOURS ORAL 10/10/16 14:00 11/09/16 13:59 Enalaprilat (Vasotec) 2.5 mg Q6H PRN IV sbp more than 160 10/10/16 06:45 11/09/16 06:44 10/10/16 07:12 Furosemide (Lasix) 40 mg DAILY ORAL 10/10/16 09:00 11/09/16 08:59 10/10/16 08:58 Ketorolac Tromethamine (Toradol 30mg) 30 mg Q6H PRN IV Moderate Pain (Pain Scale 4-6) 10/10/16 06:45 10/15/16 06:44 Metoprolol Tartrate (Lopressor) 5 mg Q1H PRN IVP heart rate more than 140 10/10/16 06:45 11/09/16 06:44 Morphine Sulfate (Morphine Sulfate) 2 mg Q4H PRN IVP severe Pain (Pain Scale 7-10) 10/10/16 06:45 10/17/16 06:44 10/10/16 06:57 Nitroglycerin (Ntg) 0.4 mg Q5MIN X 3 DOSES PRN SL Prn Chest Pain 10/10/16 07:00 11/09/16 06:59 Ondansetron HCl (Zofran) 4 mg Q6H PRN IVP Nausea & Vomiting 10/10/16 06:45 11/09/16 06:44 Pantoprazole (Protonix) 40 mg DAILY ORAL 10/10/16 09:00 11/09/16 08:59 10/10/16 08:58 Polyethylene Glycol (Miralax) 17 gm DAILYPRN PRN ORAL Constipation 10/10/16 06:45 11/09/16 06:44 Temazepam (Restoril) 15 mg HSPRN PRN ORAL Insomnia 10/10/16 21:00 10/17/16 20:59 Assessment/Plan Assessment/Plan ASSESSMENT AF with RVR HTN urgency drug abuse COPD hx of CHF PLAN OF CARE tele O2 HHN prn CXR + CM, no infiltrate rate control with Digoxin , Cardizem,u=increased dose, optimize further as needed cardio eval anticoagulation, start on Lovenox and Coumadin and bridge to therapeutic INR BP management with CCB and BB, increase dose of Cardizem ECHO today serial troponin check lipid panel, TSH, continue Lasix, monitor renal parameters, lytes O2 HHN prn, no clinical evidence of COPD exacerbation GI prophylaxis 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
[2016-10-10 12:03] LABS: INR 1.2 (0.9-1.1); PROTHROMBIN TIME 12.1 SEC (9.30-11.50)
[2016-10-10] MEDS: Enoxaparin 80mg Inj SUBQ SCH ×2 (13:17→22:18)
[2016-10-10] MEDS ORDERED: Diltiazem 90mg tab ORAL SCH (14:00)
--- NOTE | 2016-10-10 16:38 | Cardiology Progress Note ---
Subjective Subjective [id number] Objective Last 24 Hour Vital Signs Date Time Temp Pulse Resp B/P Pulse Ox O2 Delivery O2 Flow Rate FiO2 10/10/16 14:49 82 151/123 10/10/16 13:50 86 183/113 10/10/16 13:22 195/115 10/10/16 13:05 79 179/137 10/10/16 13:00 79 195/115 10/10/16 12:00 79 23 179/137 100 Room Air 10/10/16 12:00 73 10/10/16 08:59 79 187/104 10/10/16 08:00 97 10/10/16 08:00 96.7 59 28 191/106 100 Room Air 10/10/16 07:30 87 20 Room Air 21 10/10/16 07:12 168/103 10/10/16 06:57 126 10/10/16 04:00 126 10/10/16 01:30 153 10/10/16 01:10 125 177/118 10/10/16 00:00 97.9 80 16 180/91 95 Room Air 10/10/16 00:00 114 10/09/16 22:31 141/91 10/09/16 22:20 97.2 19 162/109 100 Room Air 10/09/16 22:14 97.5 121 19 141/91 100 Room Air 21 10/09/16 21:27 97.5 121 19 141/91 100 Room Air 21 10/09/16 19:46 97.5 110 21 160/110 100 Room Air 10/09/16 17:54 97.5 110 21 167/120 100 Room Air 21 Intake and Output 10/09/16 10/10/16 19:00 07:00 # Voids 2 1 Laboratory Tests Test 10/10/16 07:35 10/10/16 11:05 Troponin I < 0.30 ng/mL (<=0.30) Prothrombin Time 12.1 SEC (9.30-11.50) H Prothromb Time International Ratio 1.2 (0.9-1.1) H KEILA VEGA Oct 10, 2016 16:38
[2016-10-10] MEDS ORDERED: Warfarin Sodium 5mg ORAL ONE (17:00)
[2016-10-10] MEDS: Diltiazem 90mg tab ORAL SCH (22:00)
[2016-10-10] MEDS: Carvedilol 25mg Tab ORAL SCH (22:17)
--- NOTE | 2016-10-10 22:59 | Consultation ---
DATE OF CONSULTATION: 10/10/2016 CARDIOLOGY CONSULTATION IDENTIFYING DATA: This is a 56-year-old, black female. REASON FOR EVALUATION: Atrial fibrillation with a rapid ventricular rate. HISTORY OF PRESENT ILLNESS: Taken from the patient and reviewing the note. Unfortunately, the patient is not a very good historian. She is lethargic and she said she felt better today, although she does not specify, which was that yesterday when she came in. Apparently, she came with palpitations and shortness of breath. She is in atrial fibrillation with rapid ventricular rate. She is cocaine abuser frequent and she was known to do that in the past. She is in atrial fibrillation, congestive heart failure, hypertension and coronary artery disease. The patient was tachycardiac in the emergency room and now she is more stabilized. Her troponin was negative. PAST MEDICAL HISTORY: Significant for COPD, hypertension, coronary artery disease, congestive heart failure and she is anticoagulated with Coumadin. PAST SURGICAL HISTORY: She has history of skin lesions operated on according to the patient. ALLERGIES: Not reported. MEDICATIONS: Home medications were reviewed. REVIEW OF SYSTEMS: She denies any fever, chills, nausea, or vomiting at this time. She is resting comfortably much better than yesterday according to her. PHYSICAL EXAMINATION: VITAL SIGNS: Her blood pressure is 180/137 to 150/120, heart rate is 80 to 90 in atrial fibrillation, saturation 100% and she is afebrile. She appears to be chronically ill and older than stated age. HEENT: VELVETLA. EOMI. NECK: Neck veins are approximately at 10 cm. Carotid upstroke is brisk. Irregular. She has no bruit. LUNGS: She has bilateral rales at bases posteriorly. No crackles. No wheezing. HEART: Irregular. S1 is diminished. She has a slightly accented A2. She has holosystolic murmur and negative 2/6. ABDOMEN: Soft, distended, and slightly tender. Bowel sounds are present. EXTREMITIES: Lower extremities, no edema. Distal pulses palpable. NEUROLOGICAL: She moves all extremities. LABORATORY AND DIAGNOSTIC DATA: Her EKG shows left ventricular hypertrophy and atrial fibrillation without acute ST or T changes. Her troponin was negative. The rest of the laboratories were reviewed and they are unremarkable. Her INR upon admission is 1.2. Urinalysis showed 2 to 4 WBCs and she is positive for cocaine. IMPRESSION AND RECOMMENDATION: The patient is exposed to cocaine at home consistently and the best way to treat her would be to stop cocaine. In terms of her medications at the present time, they appeared to be appropriate. According to the INR, she probably is not compliant her medications at home. She also is on beta-blockers, which is not the best option for patient on cocaine, however, considering that she is on carvedilol, which has sympathomimetic effect , it is probably okay and I am not going to change it and she is also on oral Lasix. According to the patient, she was here a week ago. Unfortunately, I cannot find the records from previous admission to see if she had echo done at that admission and so I will try to pull it from the records if I can to see if she had recent echocardiogram and some other workup for coronary artery disease. However, at this point, she is free of chest pain and troponin negative and EKG does not show acute ischemia so we do not have to do anything urgently. Thank you for your consultation. Yuliya Castillo M.D. DR: DANIELA JOB#: [id number] CC: SEAN
[2016-10-11] VITALS: BP 144/67
[2016-10-11] MEDS: Diltiazem 90mg tab ORAL SCH ×4 (01:44→21:13)
[2016-10-11 04:00] VITALS: BP 186/98
[2016-10-11 05:55] LABS: BASOPHILS % (AUTO) 0.9 % (0.0-2.0); EOSINOPHILS % (AUTO) 1.6 % (0.0-3.0); LYMPHOCYTES % (AUTO) 14.1 % (20.0-45.0); MEAN CORPUSCULAR HEMOGLOBIN 27.1 PG (27.0-31.0); MEAN CORPUSCULAR HGB CONC 32.1 G/DL (32.0-36.0); MEAN CORPUSCULAR VOLUME 84 FL (80-99); MEAN PLATELET VOLUME 9.3 FL (6.5-10.1); MONOCYTES % (AUTO) 7.9 % (1.0-10.0); NEUTROPHILS % (AUTO) 75.5 % (45.0-75.0); PLATELET COUNT 138 K/UL (150-450); RED BLOOD COUNT 5.14 M/UL (4.20-5.40); RED CELL DISTRIBUTION WIDTH 15.4 % (11.6-14.8); WHITE BLOOD COUNT 8.1 K/UL (4.8-10.8)
[2016-10-11 06:09] LABS: INR 1.2 (0.9-1.1); PROTHROMBIN TIME 12.4 SEC (9.30-11.50)
[2016-10-11 06:16] LABS: TROPONIN I < 0.30 ng/mL (<=0.30)
[2016-10-11 07:18] LABS: CHOLESTEROL/HDL RATIO 5.8 (3.3-4.4); CRP QUANT 1.8 mg/dL (< 0.5)
[2016-10-11 07:27] LABS: THYROID STIMULATING HORMONE 0.359 uIU/mL (0.300-4.500)
[2016-10-11 08:00] VITALS: BP 159/111
[2016-10-11] MEDS: Furosemide 40mg tab ORAL SCH (08:37)
[2016-10-11] MEDS: Carvedilol 25mg Tab ORAL SCH ×2 (08:38→21:00)
[2016-10-11] MEDS: Enoxaparin 80mg Inj SUBQ SCH ×2 (08:41→20:17)
[2016-10-11] MEDS ORDERED: Digoxin 0.5mg/2ml Inj IVP SCH (09:00)
--- NOTE | 2016-10-11 10:27 | Pulmonology Progress Note ---
Assessment/Plan Assessment/Plan ASSESSMENT AF with RVR -resolved HTN urgency drug abuse COPD hx of CHF severe pulmonary HTN severe MR PLAN OF CARE tele O2 HHN prn CXR + CM, no infiltrate rate control with Digoxin , Cardizem, dose increased , HR stable cardio eval appreciated , per cradio no urgent workup required anticoagulation, start on Lovenox and Coumadin and bridge to therapeutic INR , still subtherapeutic BP management with CCB and BB, BB not advisable for cocaine users, however per cardio Coreg OK ECHO with EF 55%, RVSP of 57, c/w severe pulmonary HTN, severe MR serial troponin negative, lipid panel stable, TSH WNL, continue Lasix, monitor renal parameters, lytes-stable O2 HHN prn, no clinical evidence of COPD exacerbation GI prophylaxis 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 dc plan for am case discussed and evaluated by supervising physician Subjective Allergies: Coded Allergies: SULFA (SULFONAMIDE ANTIBIOTICS) (Unverified Allergy, Unknown, 03/29/14) Subjective denies chest pain, SOB, palpitations seen and evaluated by cardio Objective Last 24 Hour Vital Signs Date Time Temp Pulse Resp B/P Pulse Ox O2 Delivery O2 Flow Rate FiO2 10/11/16 09:00 56 10/11/16 08:38 73 156/108 10/11/16 08:00 72 10/11/16 08:00 96.9 67 17 159/111 96 Room Air 10/11/16 06:15 81 162/120 10/11/16 04:00 97.8 86 20 186/98 96 Room Air 10/11/16 04:00 76 10/11/16 00:00 62 10/11/16 00:00 97.0 20 144/67 Room Air 10/10/16 22:17 67 135/100 10/10/16 22:00 58 135/100 10/10/16 20:00 98.1 67 19 135/100 97 Room Air 10/10/16 20:00 58 10/10/16 19:59 83 20 Room Air 21 10/10/16 18:44 99.1 60 18 134/101 96 Room Air 10/10/16 16:00 97.0 60 18 154/103 96 Room Air 10/10/16 16:00 90 10/10/16 14:49 82 151/123 10/10/16 13:50 86 183/113 10/10/16 13:22 195/115 10/10/16 13:05 79 179/137 10/10/16 13:00 79 195/115 10/10/16 12:00 79 23 179/137 100 Room Air 10/10/16 12:00 73 Intake and Output 10/10/16 10/11/16 19:00 07:00 Intake Total 2250 ml Output Total 3350 ml Balance -1100 ml Intake Oral 2250 ml Output Urine Total 3350 ml # Voids 6 3 Objective General Appearance: WD/WN, no apparent distress, alert - A/A/O x 3 AA female in NAD Lines, tubes and drains: peripheral HEENT: normocephalic, atraumatic, anicteric, mucous membranes moist, PERRL Neck: supple Respiratory/Chest: lungs clear - with moderate air entry , no respiratory distress, no accessory muscle use Cardiovascular/Chest: no JVD, irregularly irregular - A fib on monitor Abdomen: normal bowel sounds, non tender, soft Extremities: normal range of motion, non-tender, normal inspection, no calf tenderness, normal capillary refill Skin Exam: warm/dry Neurologic: no motor/sensory deficits, alert, oriented x 3, responsive Musculoskeletal: normal muscle bulk Microbiology Date/Time Source Procedure Growth Status 10/09/16 17:47 Nasal Nares MRSA Culture - Final NO METHICILLIN RESISTANT STAPH AUREUS... Complete Laboratory Tests 10/10/16 11:05: Prothrombin Time 12.1H, Prothromb Time International Ratio 1.2H 10/11/16 05:20: Prothrombin Time 12.4H, Prothromb Time International Ratio 1.2H, White Blood Count 8.1, Red Blood Count 5.14, Hemoglobin 13.9, Hematocrit 43.4, Mean Corpuscular Volume 84, Mean Corpuscular Hemoglobin 27.1, Mean Corpuscular Hemoglobin Concent 32.1, Red Cell Distribution Width 15.4H, Platelet Count 138L , Mean Platelet Volume 9.3, Neutrophils (%) (Auto) 75.5H, Lymphocytes (%) (Auto ) 14.1L, Monocytes (%) (Auto) 7.9, Eosinophils (%) (Auto) 1.6, Basophils (%) ( Auto) 0.9, Activated Partial Thromboplast Time 33, Troponin I < 0.30, C- Reactive Protein, Quantitative 1.8H, Triglycerides Level 63, Cholesterol Level 110, LDL Cholesterol 78, HDL Cholesterol 19, Cholesterol/HDL Ratio 5.8H, Thyroid Stimulating Hormone (TSH) 0.359, Digoxin Level 0.6 Current Medications Medications (Trade) Dose Ordered Sig/Ruben Route PRN Reason Start Time Stop Time Status Last Admin Dose Admin Acetaminophen (Tylenol) 650 mg Q4H PRN ORAL T>100.5 10/10/16 06:45 11/09/16 06:44 Albuterol/ Ipratropium (DuoNeb 0.5-3(2.5)mg/3ml) 3 ml Q4H PRN HHN Shortness of Breath 10/10/16 06:45 10/15/16 06:44 Carvedilol (Coreg) 25 mg Q12HR ORAL 10/10/16 21:00 11/09/16 20:59 10/11/16 08:38 Clonidine HCl (Catapres) 0.1 mg Q6H PRN ORAL SBP>160 10/10/16 14:30 11/09/16 14:29 Digoxin (Lanoxin) 0.25 mg DAILY IVP 10/11/16 09:00 11/10/16 08:59 Diltiazem HCl (Cardizem) 10 mg EVERY HOUR PRN IV heart rate more than 120 10/10/16 06:45 11/09/16 06:44 Diltiazem HCl (Cardizem) 90 mg EVERY 8 HOURS ORAL 10/10/16 22:00 11/09/16 21:59 10/11/16 06:15 Enoxaparin Sodium (Lovenox) 70 mg EVERY 12 HOURS SUBQ 10/10/16 12:30 11/09/16 12:29 10/11/16 08:41 Furosemide (Lasix) 40 mg DAILY ORAL 10/10/16 09:00 11/09/16 08:59 10/11/16 08:37 Metoprolol Tartrate (Lopressor) 5 mg Q1H PRN IVP heart rate more than 140 10/10/16 06:45 11/09/16 06:44 Morphine Sulfate (Morphine Sulfate) 2 mg Q4H PRN IVP severe Pain (Pain Scale 7-10) 10/10/16 06:45 10/17/16 06:44 10/10/16 06:57 Nitroglycerin (Ntg) 0.4 mg Q5MIN X 3 DOSES PRN SL Prn Chest Pain 10/10/16 07:00 11/09/16 06:59 Ondansetron HCl (Zofran) 4 mg Q6H PRN IVP Nausea & Vomiting 10/10/16 06:45 11/09/16 06:44 Pantoprazole (Protonix) 40 mg DAILY ORAL 10/10/16 09:00 11/09/16 08:59 10/11/16 08:37 Polyethylene Glycol (Miralax) 17 gm DAILYPRN PRN ORAL Constipation 10/10/16 06:45 11/09/16 06:44 Temazepam (Restoril) 15 mg HSPRN PRN ORAL Insomnia 10/10/16 21:00 10/17/16 20:59 Warfarin Sodium (Coumadin per pharmacy) 1 ea DAILY PRN MISC Per rx protocol 10/10/16 14:00 11/09/16 13:59 Warfarin Sodium (Coumadin) 6 mg COUMADIN ONCE ORAL 10/11/16 17:00 10/11/16 17:01 Corby ([facility])Akanksha NP Oct 11, 2016 10:27
[2016-10-11 12:00] VITALS: BP 148/97
[2016-10-11 16:00] VITALS: BP 151/92
--- NOTE | 2016-10-11 16:23 | Cardiology Progress Note ---
Assessment/Plan Assessment/Plan a fib with RVR, better controlled non sustianed V tach, cocaine abuse improving anticoagulation in process. Subjective Subjective the patient is less lethargic and is feeling better she had episodes of bradycardia, yesterday, but she did not feel anything with those episodes she denies chest pain Objective Last 24 Hour Vital Signs Date Time Temp Pulse Resp B/P Pulse Ox O2 Delivery O2 Flow Rate FiO2 10/11/16 15:18 69 138/84 10/11/16 12:00 96.8 60 18 148/97 95 Room Air 10/11/16 09:00 56 10/11/16 08:38 73 156/108 10/11/16 08:05 52 16 Room Air 21 10/11/16 08:00 72 10/11/16 08:00 96.9 67 17 159/111 96 Room Air 10/11/16 06:15 81 162/120 10/11/16 04:00 97.8 86 20 186/98 96 Room Air 10/11/16 04:00 76 10/11/16 00:00 62 10/11/16 00:00 97.0 20 144/67 Room Air 10/10/16 22:17 67 135/100 10/10/16 22:00 58 135/100 10/10/16 20:00 98.1 67 19 135/100 97 Room Air 10/10/16 20:00 58 10/10/16 19:59 83 20 Room Air 21 10/10/16 18:44 99.1 60 18 134/101 96 Room Air General Appearance: lethargic EENT: PERRL/EOMI Neck: JVD Rhythm: Afib Cardiovascular: bradycardia, tachycardia Respiratory/Chest: chest wall non-tender, decreased breath sounds Abdomen: non tender Extremities: trace edema Intake and Output 10/10/16 10/11/16 19:00 07:00 Intake Total 2250 ml Output Total 3350 ml Balance -1100 ml Intake Oral 2250 ml Output Urine Total 3350 ml # Voids 6 3 Laboratory Tests Test 10/11/16 05:20 White Blood Count 8.1 K/UL (4.8-10.8) Red Blood Count 5.14 M/UL (4.20-5.40) Hemoglobin 13.9 G/DL (12.0-16.0) Hematocrit 43.4 % (37.0-47.0) Mean Corpuscular Volume 84 FL (80-99) Mean Corpuscular Hemoglobin 27.1 PG (27.0-31.0) Mean Corpuscular Hemoglobin Concent 32.1 G/DL (32.0-36.0) Red Cell Distribution Width 15.4 % (11.6-14.8) H Platelet Count 138 K/UL (150-450) L Mean Platelet Volume 9.3 FL (6.5-10.1) Neutrophils (%) (Auto) 75.5 % (45.0-75.0) H Lymphocytes (%) (Auto) 14.1 % (20.0-45.0) L Monocytes (%) (Auto) 7.9 % (1.0-10.0) Eosinophils (%) (Auto) 1.6 % (0.0-3.0) Basophils (%) (Auto) 0.9 % (0.0-2.0) Prothrombin Time 12.4 SEC (9.30-11.50) H Prothromb Time International Ratio 1.2 (0.9-1.1) H Activated Partial Thromboplast Time 33 SEC (23-33) Troponin I < 0.30 ng/mL (<=0.30) C-Reactive Protein, Quantitative 1.8 mg/dL (< 0.5) H Triglycerides Level 63 mg/dL (< 150) Cholesterol Level 110 mg/dL (< 200) LDL Cholesterol 78 mg/dL (60-99) HDL Cholesterol 19 mg/dL (> 60) Cholesterol/HDL Ratio 5.8 (3.3-4.4) H Thyroid Stimulating Hormone (TSH) 0.359 uIU/mL (0.300-4.500) Digoxin Level 0.6 ng/mL (0.5-2.0) Microbiology Date/Time Source Procedure Growth Status 10/09/16 17:47 Nasal Nares MRSA Culture - Final NO METHICILLIN RESISTANT STAPH AUREUS... Complete 10/09/16 17:47 Rectum VRE Culture - Final NO VANCOMYCIN RESISTANT ENTEROCOCCUS ... Complete KEILA VEGA Oct 11, 2016 16:23
[2016-10-11] MEDS ORDERED: Warfarin Sodium 3mg ORAL ONE (17:00)
[2016-10-11 20:00] VITALS: BP 146/89
[2016-10-12] VITALS (8 sets, daily range): BP systolic 110–171; BP diastolic 58–107
[2016-10-12] MEDS: Carvedilol 25mg Tab ORAL SCH ×2 (01:43→08:51)
[2016-10-12] MEDS: Diltiazem 90mg tab ORAL SCH ×2 (06:00→14:47)
[2016-10-12 06:44] LABS: INR 1.2 (0.9-1.1)
[2016-10-12 06:57] LABS: TROPONIN I < 0.30 ng/mL (<=0.30)
[2016-10-12] MEDS: Furosemide 40mg tab ORAL SCH (08:51)
[2016-10-12] MEDS: Enoxaparin 80mg Inj SUBQ SCH (08:52)
--- NOTE | 2016-10-12 09:21 | Cardiology Report ---
APPROVED REPORT EXAM: Two-dimensional and M-mode echocardiogram with Doppler and color Doppler. INDICATION Left ventricular function M-Mode DIMENSIONS IVSd1.0 (0.7-1.1cm)Left Atrium (MM)5.2 (1.6-4.0cm) LVDd6.2 (3.5-5.6cm)Aortic Root2.5 (2.0-3.7cm) PWd1.1 (0.7-1.1cm)Aortic Cusp Exc.1.6 (1.5-2.0cm) LVDs4.8 (2.5-4.0cm) PWs1.6 cm Moderate left ventricular enlargement, normal systolic function and wall motion. Left ventricular ejection fraction estimated to be 55%. Mild left ventricular hypertrophy. No evidence of pericardial fat or effusion. Severe left atrial enlargement by 2D. Mild rigth atrial enlargement by 2D. Focal aortic valve sclerosis with adequate cusp excursion Mildly thickened mitral valve leaflets with normal excursion. Mitral annulus and aortic root calcification. Pulmonic valve is well visualized. Normal tricuspid valve structure. IVC dilated at 3.3cm with no physiologic collapse. RA pressure of 20mmHg. A color flow and spectral Doppler study was performed and revealed: Mild aortic regurgitation. Severe mitral regurgitation. Left ventricular diastolic dysfunction not obtainable due to A-FIB. Moderate tricuspid regurgitation. Tricuspid systolic velocities suggests peak right ventricular systolic pressure of 57 mmHg Consistent with severe pulmonary hypertension.
--- NOTE | 2016-10-12 16:26 | Pulmonology Progress Note ---
Assessment/Plan Problems: (1) Afib (2) HTN (hypertension) (3) CHF (congestive heart failure) (4) Cocaine abuse (5) COPD (chronic obstructive pulmonary disease) Assessment/Plan on coumadin heart rate controlled dc home in am. Subjective ROS Limited/Unobtainable: No Constitutional: Reports: no symptoms HEENT: Repors: no symptoms Respiratory: Reports: no symptoms Cardiovascular: Reports: no symptoms Gastrointestinal/Abdominal: Reports: no symptoms Genitourinary: Reports: no symptoms Allergies: Coded Allergies: SULFA (SULFONAMIDE ANTIBIOTICS) (Unverified Allergy, Unknown, 03/29/14) Objective Last 24 Hour Vital Signs Date Time Temp Pulse Resp B/P Pulse Ox O2 Delivery O2 Flow Rate FiO2 10/12/16 14:47 67 155/84 10/12/16 11:31 97.0 67 18 155/84 97 Room Air 10/12/16 10:07 61 149/91 10/12/16 08:51 78 163/100 10/12/16 08:50 71 10/12/16 08:14 96.5 55 18 163/100 100 Nasal Cannula 2.0 10/12/16 08:00 59 10/12/16 06:45 56 110/60 Room Air 10/12/16 06:00 56 110/60 10/12/16 04:30 98.1 54 20 95 Nasal Cannula 10/12/16 04:00 97.0 84 16 126/58 94 Endotracheal Tube 10/12/16 03:52 47 10/12/16 01:43 82 171/88 10/12/16 01:41 171/88 10/12/16 00:00 98.1 82 20 171/88 97 Nasal Cannula 10/11/16 23:45 66 10/11/16 22:06 68 18 100 Nasal Cannula 32 10/11/16 21:58 32 10/11/16 21:56 64 20 100 Nasal Cannula 3.0 32 10/11/16 20:10 58 16 Room Air 21 10/11/16 20:00 98.1 54 18 146/89 99 Room Air 10/11/16 19:53 58 Intake and Output 10/11/16 10/12/16 19:00 07:00 Intake Total 580 ml Balance 580 ml Intake Oral 580 ml # Voids 3 # Bowel Movements 1 HEENT: normocephalic, atraumatic Respiratory/Chest: chest wall non-tender Cardiovascular: normal peripheral pulses, regular rhythm, no JVD Abdomen: soft, non tender Microbiology Date/Time Source Procedure Growth Status 10/09/16 17:47 Nasal Nares MRSA Culture - Final NO METHICILLIN RESISTANT STAPH AUREUS... Complete 10/09/16 17:47 Rectum VRE Culture - Final NO VANCOMYCIN RESISTANT ENTEROCOCCUS ... Complete Laboratory Tests 10/12/16 04:15: Prothrombin Time 12.0H, Prothromb Time International Ratio 1.2H, Troponin I < 0.30 Current Medications Medications (Trade) Dose Ordered Sig/Ruben Route PRN Reason Start Time Stop Time Status Last Admin Dose Admin Acetaminophen (Tylenol) 650 mg Q4H PRN ORAL T>100.5 10/10/16 06:45 11/09/16 06:44 Albuterol/ Ipratropium (DuoNeb 0.5-3(2.5)mg/3ml) 3 ml Q4H PRN HHN Shortness of Breath 10/10/16 06:45 10/15/16 06:44 10/11/16 21:56 Carvedilol (Coreg) 25 mg Q12HR ORAL 10/10/16 21:00 11/09/16 20:59 10/12/16 08:51 Clonidine HCl (Catapres) 0.1 mg Q6H PRN ORAL SBP>160 10/10/16 14:30 11/09/16 14:29 10/12/16 01:41 Diltiazem HCl (Cardizem) 90 mg EVERY 8 HOURS ORAL 10/10/16 22:00 11/09/16 21:59 10/12/16 14:47 Enoxaparin Sodium (Lovenox) 70 mg EVERY 12 HOURS SUBQ 10/10/16 12:30 11/09/16 12:29 10/12/16 08:52 Furosemide (Lasix) 40 mg DAILY ORAL 10/10/16 09:00 11/09/16 08:59 10/12/16 08:51 Metoprolol Tartrate (Lopressor) 5 mg Q1H PRN IVP heart rate more than 140 10/10/16 06:45 11/09/16 06:44 Morphine Sulfate (Morphine Sulfate) 2 mg Q4H PRN IVP severe Pain (Pain Scale 7-10) 10/10/16 06:45 10/17/16 06:44 10/10/16 06:57 Nitroglycerin (Ntg) 0.4 mg Q5MIN X 3 DOSES PRN SL Prn Chest Pain 10/10/16 07:00 11/09/16 06:59 Ondansetron HCl (Zofran) 4 mg Q6H PRN IVP Nausea & Vomiting 10/10/16 06:45 11/09/16 06:44 Pantoprazole (Protonix) 40 mg DAILY ORAL 10/10/16 09:00 11/09/16 08:59 10/12/16 08:50 Polyethylene Glycol (Miralax) 17 gm DAILYPRN PRN ORAL Constipation 10/10/16 06:45 11/09/16 06:44 Temazepam (Restoril) 15 mg HSPRN PRN ORAL Insomnia 10/10/16 21:00 10/17/16 20:59 10/12/16 01:37 Warfarin Sodium (Coumadin per pharmacy) 1 ea DAILY PRN MISC Per rx protocol 10/10/16 14:00 11/09/16 13:59 Warfarin Sodium (Coumadin) 7.5 mg COUMADIN ORAL 10/12/16 17:00 10/12/16 17:01 CANDIDO MARQUES Oct 12, 2016 16:26
[2016-10-12] MEDS ORDERED: Warfarin Sodium 7.5mg ORAL SCH (17:00)
[2016-10-13] MEDS ORDERED: COUMADIN7.5 MG ORAL (13:29)
--- NOTE | 2016-10-13 13:37 | Discharge Instructions ---
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 [facility] Celis NP Oct 13, 2016 13:37
--- NOTE | 2016-10-13 13:37 | Discharge Summary ---
Discharge Summary Hospital Course Date of Admission Oct 09, 2016 at 22:00 Date of Discharge Oct 12, 2016 at 22:15 Admitting Diagnosis hypertensive urgency HPI Elo Menezes is a 56 year old female who was admitted on Oct 09, 2016 at 22:00 for Hypertensive Urgency Hospital Course dc summary dictated [id number] Discharge Medications New Medications: Warfarin Sod (Coumadin*) 7.5 Mg Tablet 7.5 MG ORAL DAILY, #5 TAB Continued Medications: Albuterol Sulfate* (Proair Hfa*) 8.5 Gm Hfa.aer.ad 1 PUFF INH Q6H, #8.5 GM 0 Refills Carvedilol (Coreg) 12.5 Mg Tablet 25 MG ORAL Q12HR for 30 Days, TAB Diltiazem Hcl* (Cardizem*) 60 Mg Tablet 60 MG ORAL EVERY 8 HOURS for 30 Days, TAB Ferrous Sulfate* (Ferrous Sulfate*) 325 Mg Tablet 325 MG ORAL DAILY, TAB 0 Refills Fluticasone/Salmeterol (Advair 250-50 Diskus) 1 Each Blst.w.dev 1 PUFF INH EVERY 12 HOURS for 30 Days, #1 EA Furosemide* (Lasix*) 40 Mg Tablet 40 MG ORAL DAILY, TAB Hydralazine HCl (Hydralazine HCl) 50 Mg Tablet 50 MG ORAL EVERY 8 HOURS for 30 Days, TAB Discontinued Medications: Warfarin Sod* (Coumadin*) 3 Mg Tablet 4 MG ORAL COUMADIN for 30 Days, TAB Discharge Condition Upon Discharge: stable Discharge Disposition Patient was discharged to Home () Discharge Diagnoses: Discharge Instructions Discharge Instructions Follow up with: PMD on wednesday for INR check Call MD/Return to Hospital if: chest pain, SOB, palpitations, dizziness, bleeding Activity: resume normal activities, as tolerated Akanksha Tavarez NP ([facility]) Oct 13, 2016 13:37
--- NOTE | 2016-10-14 02:18 | Discharge Summary 2 SIG ---
DATE OF ADMISSION: 10/09/2016 DATE OF DISCHARGE: 10/12/2016 The patient was admitted under Dr. Quezada. REASON FOR HOSPITALIZATION: 56-year-old female, presented to the emergency department, after increased palpitations and shortness of breath. She reported gradual onset of symptoms. She reported similar symptoms in the past after using cocaine. She denied fever , chills. Denied cough, congestion, wheezing, or chest pain. Past medical history significant for atrial fibrillation. The patient was on Coumadin at home. Patient reported compliance with medication. Reported history of congestive heart failure, hypertension, and coronary artery disease. ED workup in ED revealed atrial fibrillation with rapid ventricular response. Heart rate 130 to 140 and blood pressure was 182/135. Pulse oximetry was stable on room air. Chest x-ray revealed cardiomegaly, but no evidence of infiltrate. No leukocytosis. Stable hemoglobin and hematocrit. Negative troponin. Urine tox screen was positive for cocaine. In the emergency department, the patient was given intravenous Cardizem as well as clonidine without much improvement in blood pressure and heart rate and was transferred to telemetry floor for further management. ADMITTING DIAGNOSES: 1. Atrial fibrillation with rapid ventricular response. 2. Hypertensive urgency. 3. Drug abuse/cocaine . 4. Chronic obstructive pulmonary disease. 5. History of congestive heart failure. HOSPITAL COURSE: The patient was admitted to telemetry floor. Supplemental oxygen and pulmonary toilet provided as needed. Pulse oximetry was stable on the room air. Chest x-ray revealed cardiomegaly. No infiltrate. Rate control was done with digoxin and Cardizem. Dose of Cardizem was increased. Heart rate stabilized. Cardiology consult was requested. INR was subtherapeutic. The patient was likely noncompliant. The patient was started on Lovenox and Coumadin to bridge to the therapeutic INR. Blood pressure was managed with calcium channel abimbola and beta-abimbola. Again, a dose of Cardizem was increased. Echocardiogram revealed preserved ejection fraction of 55% and right ventricular systolic pressure of 57% consistent with severe pulmonary hypertension and severe mitral regurgitation. The patient was on Lasix. Renal parameters and electrolytes were stable. No clinical evidence of chronic obstructive pulmonary disease exacerbation. Respiratory status was stable. GI prophylaxis provided. The patient was counseled on abstinence from street drugs. INR was still subtherapeutic on the day of discharge. The patient was discharged on Coumadin 7.5 mg and followup with the primary medical doctor for INR on Wednesday. Per Cardiology, not recommended use of the beta abimbola due to the history of cocaine abuse. However, since the patient taking Coreg, which has sympathomimetic effect, the inspector penetrant cleared to continue Coreg. The patient was stable for discharge. DISCHARGE DIAGNOSES: 1. Atrial fibrillation with rapid ventricular response/-resolved. 2. Hypertensive emergency/- resolved. 3. Drug abuse/cocaine. 4. Chronic obstructive pulmonary disease. 5. History of congestive heart failure. 6. Severe pulmonary hypertension. 7. Severe mitral regurgitation. DISCHARGE MEDICATIONS: See medication reconciliation list. DISCHARGE INSTRUCTIONS: The patient was discharged home. Followup with the primary medical doctor on Wednesday for INR checkup. Enid Quezada M.D. Akanksha LlamasWeill Cornell Medical CenterLalita NRonyPRony DR: EDEN JOB#: [id number] CC: SEAN
== END 2016-10-12 22:15 | disposition home or self-care (01) | DRG 201 ==
LOC: ENRESERVTM → ENRESERVDT → EMR 12:08 → EDBEDREQ 17:15 → 2E 22:00
DX: I48.91 Unspecified atrial fibrillation (principal); I27.2 Other secondary pulmonary hypertension; I50.9 Heart failure, unspecified; I16.0 Hypertensive urgency; J44.9 Chronic obstructive pulmonary disease, unspecified; F14.10 Cocaine abuse, uncomplicated; Z79.01 Long term (current) use of anticoagulants; I34.0 Nonrheumatic mitral (valve) insufficiency; I25.10 Atherosclerotic heart disease of native coronary artery without angina pectoris; Z88.2 Allergy status to sulfonamides
CPT/HCPCS: 36415; 71010; 80053; 80061; 80162; 80300; 81001; 84443; 84484; 85025; 85610; 85730; 86140; 87081; 93005; 93306; 94640; 94664; J7620

== ENCOUNTER 2017-06-16 04:58 | Inpatient (IN) | payer MEDICAID, OTHER ==
[~2017-06-16] VITALS: Ht 170.2 cm; Wt 69.4 kg
[~2017-06-16 04:58] MED LIST changes: +COUMADIN7.5 MG ORAL
[2017-06-16 05:04] VITALS: BP 178/112
--- NOTE | 2017-06-16 05:12 | Emergency Room Report ---
History of Present Illness General Chief Complaint: Upper Respiratory Illness Source: Patient Present Illness HPI This is a 56-year-old female presented after increased difficulty breathing. Patient gradual onset of symptoms. Patient states that she had recent had increased difficulty with a cough. She prior history of COPD. Patient states that she had been taking inhalers the past but however she is out of her medication. She reported having increased congestion. She had not been vomiting. She reports having worsening symptoms for the past few days. Allergies: Coded Allergies: SULFA (SULFONAMIDE ANTIBIOTICS) (Unverified Allergy, Unknown, 03/29/14) Patient History Past Medical History: COPD Social History: Reports: drug use - cocaine Last Menstrual Period: n/a Reviewed Nursing Documentation: PMH: Agreed Nursing Documentation-PMH Hx Cardiac Problems: Yes Hx Hypertension: Yes Hx Pacemaker: No Hx COPD: Yes Hx Cancer: No Hx Gastrointestinal Problems: No Hx Neurological Problems: No Review of Systems All Other Systems: negative except mentioned in HPI Physical Exam Vital Signs Date Time Temp Pulse Resp B/P (MAP) Pulse Ox O2 Delivery O2 Flow Rate FiO2 06/16/17 04:58 97.9 86 16 178/112 97 Room Air Sp02 EP Interpretation: reviewed, normal General Appearance: normal inspection, well appearing, no apparent distress, alert Head: atraumatic ENT: normal ENT inspection, hearing grossly normal, normal voice Neck: normal inspection, full range of motion, supple, no bony tend Respiratory: normal inspection, lungs clear, normal breath sounds, no respiratory distress, no retraction, no wheezing Cardiovascular #1: regular rate, rhythm, no edema Gastrointestinal: normal inspection, normal bowel sounds, non tender, soft, no guarding, no hernia Genitourinary: no CVA tenderness Musculoskeletal: normal inspection, back normal, normal range of motion Neurologic: normal inspection, alert, oriented x3, responsive, bench scientist III-XII nml as tested, motor strength/tone normal, speech normal Psychiatric: normal inspection, judgement/insight normal, mood/affect normal Skin: normal inspection, normal color, no rash Medical Decision Making Diagnostic Impression: Primary Impression: COPD (chronic obstructive pulmonary disease) Additional Impressions: COPD exacerbation CHF (congestive heart failure) ER Course Patient presented for shortness of breath. Differential included but was not limited to anemia, pneumonia, pneumothorax, myocardial infarction, pericardial effusion, congestive heart failure, acidosis. Because of complexity of patient' s case imaging studies were ordered.Laboratory testing showed initial negative troponin. Patient noted have some evidence of ischemia on EKG. This may be related to patient substance-abuse. The patient was given breathing treatments as well as nitroglycerin. She had some improvement shortness of breath. Chest x-ray one view interpreted by me showed cardiomegaly with the normal mediastinum there is no evident infiltrate or effusion. Dr. Quezada was contacted for inpatient management due to complexity of medical condition. Labs Test 06/16/17 05:40 06/16/17 06:18 White Blood Count 5.6 K/UL (4.8-10.8) Red Blood Count 5.34 M/UL (4.20-5.40) Hemoglobin 14.7 G/DL (12.0-16.0) Hematocrit 47.3 % (37.0-47.0) Mean Corpuscular Volume 89 FL (80-99) Mean Corpuscular Hemoglobin 27.6 PG (27.0-31.0) Mean Corpuscular Hemoglobin Concent 31.2 G/DL (32.0-36.0) Red Cell Distribution Width 13.7 % (11.6-14.8) Platelet Count 144 K/UL (150-450) Mean Platelet Volume 9.9 FL (6.5-10.1) Neutrophils (%) (Auto) 60.7 % (45.0-75.0) Lymphocytes (%) (Auto) 28.6 % (20.0-45.0) Monocytes (%) (Auto) 7.6 % (1.0-10.0) Eosinophils (%) (Auto) 2.2 % (0.0-3.0) Basophils (%) (Auto) 0.9 % (0.0-2.0) Troponin I 0.010 ng/mL (0.000-0.056) EKG Diagnostic Results Rate: other - atrial fibrillation with st depressions ST Segments: other Last Vital Signs Date Time Temp Pulse Resp B/P (MAP) Pulse Ox O2 Delivery O2 Flow Rate FiO2 06/16/17 04:58 97.9 86 16 178/112 97 Room Air Status: unchanged Disposition: ADMITTED INPATIENT Condition: Serious Reinaldo Francois Jun 16, 2017 05:12
[2017-06-16] MEDS ORDERED: Albuterol/Ipratropium 3ml neb HHN ONE (05:15)
[2017-06-16] MEDS ORDERED: Nitroglycerin Subl 0.4mg tab SL PRN ×2 (06:15→07:15)
[2017-06-16] MEDS ORDERED: Aspirin Baby 81mg ORAL ONE (06:15)
[2017-06-16 06:24] LABS: BASOPHILS % (AUTO) 0.9 % (0.0-2.0); EOSINOPHILS % (AUTO) 2.2 % (0.0-3.0); LYMPHOCYTES % (AUTO) 28.6 % (20.0-45.0); MEAN CORPUSCULAR HEMOGLOBIN 27.6 PG (27.0-31.0); MEAN CORPUSCULAR HGB CONC 31.2 G/DL (32.0-36.0); MEAN CORPUSCULAR VOLUME 89 FL (80-99); MEAN PLATELET VOLUME 9.9 FL (6.5-10.1); MONOCYTES % (AUTO) 7.6 % (1.0-10.0); NEUTROPHILS % (AUTO) 60.7 % (45.0-75.0); PLATELET COUNT 144 K/UL (150-450); RED BLOOD COUNT 5.34 M/UL (4.20-5.40); RED CELL DISTRIBUTION WIDTH 13.7 % (11.6-14.8); WHITE BLOOD COUNT 5.6 K/UL (4.8-10.8)
[2017-06-16 06:50] LABS: ALANINE AMINOTRANSFERASE 14 U/L (12-78); ANION GAP 9 mmol/L (5-15); ASPARTATE AMINO TRANSFERASE 19 U/L (15-37); CALCIUM 8.8 MG/DL (8.5-10.1); CARBON DIOXIDE 25 MMOL/L (21-32); CHLORIDE 113 MMOL/L (98-107); CKMB 0.9 NG/ML (0.0-3.6); CREATININE 1.3 MG/DL (0.55-1.30); GLOMERULAR FILTRATION RATE 51.4 mL/min (>60); SODIUM 147 MMOL/L (136-145); TOTAL PROTEIN 6.3 G/DL (6.4-8.2)
[2017-06-16 07:04] VITALS: BP 162/102
[2017-06-16] MEDS ORDERED: Ketorolac 30mg Inj IV PRN (07:15)
[2017-06-16] MEDS ORDERED: Morphine Sulfate 2mg/ml Inj IVP PRN (07:15)
[2017-06-16] MEDS ORDERED: LORazepam Inj 2mg/ml 1ml IV PRN (07:15)
[2017-06-16] MEDS ORDERED: Albuterol/Ipratropium 3ml neb HHN PRN (07:15)
[2017-06-16 09:23] VITALS: BP 197/139
[2017-06-16 10:22] VITALS: BP 150/99
--- NOTE | 2017-06-16 11:26 | Diagnostic Imaging Report ---
Indication: SOB Technique: One view of the chest Comparison: 10/09/2016 Findings: Lungs and pleural spaces are clear. Heart size is borderline enlarged. Aorta is ectatic. Upper mediastinum is unremarkable. There are degenerative changes of the right shoulder Impression: Borderline cardiomegaly. No acute process
[2017-06-16 11:39] VITALS: BP 156/89
[2017-06-16] MEDS ORDERED: Heparin 5000 units/ml inj SUBQ SCH (12:00)
--- NOTE | 2017-06-16 12:12 | History and Physical ---
History of Present Illness General Date patient seen: Jun 16, 2017 Reason for Hospitalization: Upper Respiratory Illness Present Illness HPI 56-year-old female with hx of cardiac disease, COPD presented after increased difficulty breathing with gradual onset of symptoms and some cough. She prior history of COPD. She reported having increased congestion. she is admitted for acute exacerbation of COPD. Allergies: Coded Allergies: SULFA (SULFONAMIDE ANTIBIOTICS) (Unverified Allergy, Unknown, 03/29/14) Medication History Scheduled Albuterol Sulfate* (Proair Hfa*), 1 PUFF INH Q6H Carvedilol (Coreg), 25 MG ORAL Q12HR Diltiazem Hcl* (Cardizem*), 60 MG ORAL EVERY 8 HOURS Ferrous Sulfate* (Ferrous Sulfate*), 325 MG ORAL DAILY, (Reported) Fluticasone/Salmeterol (Advair 250-50 Diskus), 1 PUFF INH EVERY 12 HOURS Furosemide* (Lasix*), 40 MG ORAL DAILY, (Reported) Hydralazine HCl (Hydralazine HCl), 50 MG ORAL EVERY 8 HOURS Warfarin Sod (Coumadin*), 7.5 MG ORAL DAILY Patient History Healthcare decision maker Resuscitation status Advanced Directive on File Past Medical/Surgical History Past Medical/Surgical History: (1) Afib (2) HTN (hypertension) Review of Systems Constitutional: Reports: no symptoms Eye: Reports: no symptoms ENT: Reports: no symptoms Respiratory: Reports: no symptoms Cardiovascular: Reports: no symptoms Physical Exam General Appearance: WD/WN Lines, tubes and drains: peripheral HEENT: normocephalic, atraumatic Neck: non-tender Respiratory/Chest: chest wall non-tender, rhonchi - left, rhonchi - right Breasts: no masses Cardiovascular/Chest: normal rate Abdomen: normal bowel sounds, non tender Extremities: normal range of motion Lymphatic: anterior cervical Last 24 Hour Vital Signs Date Time Temp Pulse Resp B/P (MAP) Pulse Ox O2 Delivery O2 Flow Rate FiO2 06/16/17 11:39 97.9 71 18 156/89 99 Room Air 06/16/17 10:54 98.1 81 22 150/99 100 Room Air 21 06/16/17 10:22 81 22 150/99 100 Room Air 06/16/17 09:23 98.1 74 22 197/139 100 Room Air 21 06/16/17 09:21 197/139 1025/17 07:04 98.1 65 24 162/102 97 Room Air 06/16/17 06:25 189/139 06/16/17 05:26 74 20 100 Room Air 21 06/16/17 05:23 71 18 Room Air 21 06/16/17 05:20 71 18 99 Room Air 21 06/16/17 05:04 89 16 Room Air 06/16/17 05:04 97.9 89 16 178/112 97 Room Air 06/16/17 04:58 97.9 86 16 178/112 97 Room Air Laboratory Tests Test 06/16/17 05:40 06/16/17 06:18 White Blood Count 5.6 K/UL (4.8-10.8) Red Blood Count 5.34 M/UL (4.20-5.40) Hemoglobin 14.7 G/DL (12.0-16.0) Hematocrit 47.3 % (37.0-47.0) H Mean Corpuscular Volume 89 FL (80-99) Mean Corpuscular Hemoglobin 27.6 PG (27.0-31.0) Mean Corpuscular Hemoglobin Concent 31.2 G/DL (32.0-36.0) L Red Cell Distribution Width 13.7 % (11.6-14.8) Platelet Count 144 K/UL (150-450) L Mean Platelet Volume 9.9 FL (6.5-10.1) Neutrophils (%) (Auto) 60.7 % (45.0-75.0) Lymphocytes (%) (Auto) 28.6 % (20.0-45.0) Monocytes (%) (Auto) 7.6 % (1.0-10.0) Eosinophils (%) (Auto) 2.2 % (0.0-3.0) Basophils (%) (Auto) 0.9 % (0.0-2.0) Sodium Level 147 MMOL/L (136-145) H Potassium Level 4.0 MMOL/L (3.5-5.1) Chloride Level 113 MMOL/L (98-107) H Carbon Dioxide Level 25 MMOL/L (21-32) Anion Gap 9 mmol/L (5-15) Blood Urea Nitrogen 18 mg/dL (7-18) Creatinine 1.3 MG/DL (0.55-1.30) Estimat Glomerular Filtration Rate 51.4 mL/min (>60) Glucose Level 148 MG/DL (74-106) H Calcium Level 8.8 MG/DL (8.5-10.1) Total Bilirubin 0.4 MG/DL (0.2-1.0) Aspartate Amino Transf (AST/SGOT) 19 U/L (15-37) Alanine Aminotransferase (ALT/SGPT) 14 U/L (12-78) Alkaline Phosphatase 129 U/L (46-116) H Total Creatine Kinase 66 U/L (26-308) Creatine Kinase MB 0.9 NG/ML (0.0-3.6) Creatine Kinase MB Relative Index 1.3 Troponin I 0.010 ng/mL (0.000-0.056) Pro-B-Type Natriuretic Peptide 1456 pg/mL (0-125) H Total Protein 6.3 G/DL (6.4-8.2) L Albumin 3.2 G/DL (3.4-5.0) L Globulin 3.1 g/dL Albumin/Globulin Ratio 1.0 (1.0-2.7) Urine Opiates Screen Negative (NEGATIVE) Urine Barbiturates Screen Negative (NEGATIVE) Phencyclidine (PCP) Screen Negative (NEGATIVE) Urine Amphetamines Screen Negative (NEGATIVE) Urine Benzodiazepines Screen Negative (NEGATIVE) Urine Cocaine Screen Positive (NEGATIVE) H Urine Marijuana (THC) Screen Negative (NEGATIVE) Height (Feet): 5 Height (Inches): 7.00 Weight (Pounds): 145 Medications Current Medications Medications (Trade) Dose Ordered Sig/Ruben Route PRN Reason Start Time Stop Time Status Last Admin Dose Admin Albuterol/ Ipratropium (DuoNeb 0.5-3(2.5)mg/3ml) 3 ml EVERY 4 HOURS PRN HHN dyspnea 06/16/17 07:15 06/21/17 07:14 Carvedilol (Coreg) 25 mg Q12HR ORAL 06/16/17 12:00 07/16/17 11:59 Dextrose (Dextrose 50%) STAT PRN IV Hypoglycemia 06/16/17 07:15 07/16/17 07:14 Diltiazem HCl (Cardizem) 60 mg EVERY 8 HOURS ORAL 06/16/17 14:00 07/16/17 13:59 Furosemide (Lasix) 40 mg DAILY ORAL 06/16/17 12:00 07/16/17 11:59 Heparin Sodium (Porcine) (Heparin 5000 units/ml) 5,000 units EVERY 12 HOURS SUBQ 06/16/17 12:00 07/16/17 11:59 Hydralazine HCl (Apresoline) 50 mg EVERY 8 HOURS ORAL 06/16/17 14:00 07/16/17 13:59 Ketorolac Tromethamine (Toradol 30mg) 30 mg EVERY 8 HOURS PRN IV moderate pain 4-6 06/16/17 07:15 06/21/17 07:14 Lorazepam (Ativan 2mg/ml 1ml) 0.5 mg Q4H PRN IV For Anxiety 06/16/17 07:15 06/23/17 07:14 Methylprednisolone Sodium Succinate (Solu-MEDROL) 60 mg EVERY 6 HOURS IV 06/16/17 12:00 07/16/17 11:59 Morphine Sulfate (Morphine Sulfate) 2 mg EVERY 4 HOURS PRN IVP severe pain 7-10 06/16/17 07:15 06/23/17 07:14 Nitroglycerin (Ntg) 0.4 mg Q5M X 3 DOSES PRN SL Prn Chest Pain 06/16/17 07:15 07/16/17 07:14 Ondansetron HCl (Zofran) 4 mg Q6H PRN IVP Nausea & Vomiting 06/16/17 07:15 07/16/17 07:14 Piperacillin/ Tazobactam/ Dextrose 50 ml @ 12.5 mls/hr EVERY 8 HOURS IVPB 06/16/17 12:00 06/23/17 11:59 Promethazine HCl/ Codeine (Phenergan with Codeine) 5 ml EVERY 6 HOURS PRN ORAL cough 06/16/17 07:15 07/16/17 07:14 Temazepam (Restoril) 15 mg HSPRN PRN ORAL Insomnia 06/16/17 07:15 06/23/17 07:14 Theophylline (Vasiliy-Dur) 100 mg EVERY 12 HOURS ORAL 06/16/17 12:00 07/16/17 11:59 Warfarin Sodium (Coumadin per pharmacy) 1 ea DAILY PRN MISC Per rx protocol 06/16/17 07:15 07/16/17 07:14 UNV Assessment/Plan Problem List: (1) COPD exacerbation ICD Codes: J44.1 - Chronic obstructive pulmonary disease with (acute) exacerbation SNOMED: 482455896 (2) Afib ICD Codes: I48.91 - Unspecified atrial fibrillation SNOMED: 02596849 (3) HTN (hypertension) ICD Codes: I10 - Essential (primary) hypertension SNOMED: 71784207 Assessment/Plan respiratory treatment IV steroids IV antibiotics check sputum Cardio to see coumadin by pharmacy CANDIDO MARQUES Jun 16, 2017 12:12
[2017-06-16 12:22] LABS: INR 0.9 (0.9-1.1); PROTHROMBIN TIME 9.9 SEC (9.30-11.50)
[2017-06-16] MEDS: Carvedilol 12.5mg tab ORAL SCH ×2 (12:55→20:30)
[2017-06-16] MEDS: Theophylline ER 100mg ORAL SCH ×2 (12:55→20:30)
[2017-06-16] MEDS: Furosemide 40mg tab ORAL SCH (12:55)
[2017-06-16] MEDS: Solu-MEDROL 125mg Inj IV SCH ×2 (12:55→17:28)
[2017-06-16] MEDS: Zosyn 3.375gm/50ml Premix 50 ML IVPB SCH ×2 (12:56→21:39)
--- NOTE | 2017-06-16 14:28 | Cardiology Report ---
APPROVED REPORT EKG Measurement Heart [id number] Atrial fibrillation Moderate voltage criteria for LVH, may be normal variant Prolonged QT Abnormal ECG
[2017-06-16] MEDS: HydrALAZINE 50mg tab ORAL SCH ×2 (14:51→21:40)
[2017-06-16] MEDS: dilTIAZem HCl 60mg tab ORAL SCH ×2 (14:51→21:39)
[2017-06-16] MEDS: Enoxaparin 60mg Inj SUBQ SCH (14:54)
[2017-06-16 15:25] VITALS: BP 144/103
[2017-06-16] MEDS ORDERED: Warfarin Sodium 5mg ORAL SCH (17:00)
--- NOTE | 2017-06-16 19:57 | Cardiology Progress Note ---
Assessment/Plan Assessment/Plan full note to follow awiat echo\repeat trop adn bnp cindy Objective Last 24 Hour Vital Signs Date Time Temp Pulse Resp B/P (MAP) Pulse Ox O2 Delivery O2 Flow Rate FiO2 06/16/17 16:00 81 06/16/17 15:25 97.9 82 18 144/103 97 Room Air 06/16/17 14:51 144/103 06/16/17 14:51 70 144/103 06/16/17 12:55 71 156/89 06/16/17 12:00 81 06/16/17 11:39 97.9 71 18 156/89 99 Room Air 06/16/17 10:54 98.1 81 22 150/99 100 Room Air 21 06/16/17 10:22 81 22 150/99 100 Room Air 06/16/17 09:23 98.1 74 22 197/139 100 Room Air 21 06/16/17 09:21 197/139 06/16/17 07:04 98.1 65 24 162/102 97 Room Air 06/16/17 06:25 189/139 06/16/17 05:26 74 20 100 Room Air 21 06/16/17 05:23 71 18 Room Air 21 06/16/17 05:20 71 18 99 Room Air 21 06/16/17 05:04 89 16 Room Air 06/16/17 05:04 97.9 89 16 178/112 97 Room Air 06/16/17 04:58 97.9 86 16 178/112 97 Room Air Intake and Output 06/16/17 06/17/17 19:00 07:00 Intake Total 530.0 ml Balance 530.0 ml Intake Oral 480 ml IV Total 50.0 ml # Voids 2 1 # Bowel Movements 1 Laboratory Tests Test 06/16/17 05:40 06/16/17 06:18 06/16/17 11:40 White Blood Count 5.6 K/UL (4.8-10.8) Red Blood Count 5.34 M/UL (4.20-5.40) Hemoglobin 14.7 G/DL (12.0-16.0) Hematocrit 47.3 % (37.0-47.0) H Mean Corpuscular Volume 89 FL (80-99) Mean Corpuscular Hemoglobin 27.6 PG (27.0-31.0) Mean Corpuscular Hemoglobin Concent 31.2 G/DL (32.0-36.0) L Red Cell Distribution Width 13.7 % (11.6-14.8) Platelet Count 144 K/UL (150-450) L Mean Platelet Volume 9.9 FL (6.5-10.1) Neutrophils (%) (Auto) 60.7 % (45.0-75.0) Lymphocytes (%) (Auto) 28.6 % (20.0-45.0) Monocytes (%) (Auto) 7.6 % (1.0-10.0) Eosinophils (%) (Auto) 2.2 % (0.0-3.0) Basophils (%) (Auto) 0.9 % (0.0-2.0) Sodium Level 147 MMOL/L (136-145) H Potassium Level 4.0 MMOL/L (3.5-5.1) Chloride Level 113 MMOL/L (98-107) H Carbon Dioxide Level 25 MMOL/L (21-32) Anion Gap 9 mmol/L (5-15) Blood Urea Nitrogen 18 mg/dL (7-18) Creatinine 1.3 MG/DL (0.55-1.30) Estimat Glomerular Filtration Rate 51.4 mL/min (>60) Glucose Level 148 MG/DL (74-106) H Calcium Level 8.8 MG/DL (8.5-10.1) Total Bilirubin 0.4 MG/DL (0.2-1.0) Aspartate Amino Transf (AST/SGOT) 19 U/L (15-37) Alanine Aminotransferase (ALT/SGPT) 14 U/L (12-78) Alkaline Phosphatase 129 U/L (46-116) H Total Creatine Kinase 66 U/L (26-308) Creatine Kinase MB 0.9 NG/ML (0.0-3.6) Creatine Kinase MB Relative Index 1.3 Troponin I 0.010 ng/mL (0.000-0.056) Pro-B-Type Natriuretic Peptide 1456 pg/mL (0-125) H Total Protein 6.3 G/DL (6.4-8.2) L Albumin 3.2 G/DL (3.4-5.0) L Globulin 3.1 g/dL Albumin/Globulin Ratio 1.0 (1.0-2.7) Urine Opiates Screen Negative (NEGATIVE) Urine Barbiturates Screen Negative (NEGATIVE) Phencyclidine (PCP) Screen Negative (NEGATIVE) Urine Amphetamines Screen Negative (NEGATIVE) Urine Benzodiazepines Screen Negative (NEGATIVE) Urine Cocaine Screen Positive (NEGATIVE) H Urine Marijuana (THC) Screen Negative (NEGATIVE) Prothrombin Time 9.9 SEC (9.30-11.50) Prothromb Time International Ratio 0.9 (0.9-1.1) DAWNA GURROLA Jun 16, 2017 19:57
[2017-06-17] VITALS: BP 139/104
[2017-06-17] MEDS: Solu-MEDROL 125mg Inj IV SCH ×4 (00:19→17:26)
[2017-06-17] MEDS: Enoxaparin 60mg Inj SUBQ SCH ×2 (02:03→14:09)
[2017-06-17 04:00] VITALS: BP 146/90
[2017-06-17] MEDS: Promethazine/Codeine 5ml UD ORAL PRN ×2 (05:44→17:27)
[2017-06-17] MEDS: Zosyn 3.375gm/50ml Premix 50 ML IVPB SCH ×3 (05:45→21:41)
[2017-06-17] MEDS: HydrALAZINE 50mg tab ORAL SCH ×3 (05:46→22:03)
[2017-06-17] MEDS: dilTIAZem HCl 60mg tab ORAL SCH ×3 (05:46→21:37)
[2017-06-17 08:22] LABS: PROTHROMBIN TIME 10.7 SEC (9.30-11.50)
[2017-06-17 08:35] VITALS: BP 129/93
[2017-06-17] MEDS: Carvedilol 12.5mg tab ORAL SCH ×2 (09:43→21:38)
[2017-06-17] MEDS: Theophylline ER 100mg ORAL SCH ×2 (09:44→21:38)
[2017-06-17] MEDS: Furosemide 40mg tab ORAL SCH (09:44)
[2017-06-17 11:29] VITALS: BP 147/94
--- NOTE | 2017-06-17 12:39 | Pulmonology Progress Note ---
Assessment/Plan Problems: (1) COPD exacerbation (2) Afib (3) HTN (hypertension) Subjective ROS Limited/Unobtainable: No Constitutional: Reports: no symptoms Respiratory: Reports: no symptoms Cardiovascular: Reports: no symptoms Gastrointestinal/Abdominal: Reports: no symptoms Allergies: Coded Allergies: SULFA (SULFONAMIDE ANTIBIOTICS) (Unverified Allergy, Unknown, 03/29/14) Objective Last 24 Hour Vital Signs Date Time Temp Pulse Resp B/P (MAP) Pulse Ox O2 Delivery O2 Flow Rate FiO2 06/17/17 11:29 97.3 70 18 147/94 99 Room Air 06/17/17 09:43 76 129/93 06/17/17 08:35 97.5 76 20 129/93 99 Room Air 06/17/17 08:00 84 06/17/17 05:46 155/100 06/17/17 05:46 76 155/100 06/17/17 04:00 97.9 96 20 146/90 Room Air 06/17/17 04:00 82 06/17/17 00:00 97.3 97 20 139/104 97 Room Air 06/17/17 00:00 68 06/16/17 21:40 160/106 06/16/17 21:39 73 160/106 06/16/17 20:30 78 161/103 06/16/17 20:00 73 06/16/17 16:00 81 06/16/17 15:25 97.9 82 18 144/103 97 Room Air 06/16/17 14:51 144/103 06/16/17 14:51 70 144/103 06/16/17 12:55 71 156/89 Intake and Output 06/17/17 06/18/17 19:00 07:00 Intake Total 240 ml Balance 240 ml Intake Oral 240 ml # Voids 2 # Bowel Movements 1 Objective in and out of sinus echo reviewed. f/u cardiology recommendations. 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 General Appearance: WD/WN HEENT: normocephalic, atraumatic Respiratory/Chest: chest wall non-tender, lungs clear Breasts: no masses Cardiovascular: normal peripheral pulses, regular rhythm Abdomen: normal bowel sounds Microbiology Date/Time Source Procedure Growth Status 06/16/17 21:00 Sputum Gram Stain Pending Resulted 06/16/17 21:00 Sputum Sputum Culture - Preliminary NO GROWTH Resulted Laboratory Tests 06/17/17 07:30: Prothrombin Time 10.7, Prothromb Time International Ratio 1.0, Troponin I 0.017 , Pro-B-Type Natriuretic Peptide 1706H Current Medications Medications (Trade) Dose Ordered Sig/Ruben Route PRN Reason Start Time Stop Time Status Last Admin Dose Admin Albuterol/ Ipratropium (DuoNeb 0.5-3(2.5)mg/3ml) 3 ml EVERY 4 HOURS PRN HHN dyspnea 06/16/17 07:15 06/21/17 07:14 Carvedilol (Coreg) 25 mg Q12HR ORAL 06/16/17 12:00 07/16/17 11:59 06/17/17 09:43 Dextrose (Dextrose 50%) STAT PRN IV Hypoglycemia 06/16/17 07:15 07/16/17 07:14 Diltiazem HCl (Cardizem) 60 mg EVERY 8 HOURS ORAL 06/16/17 14:00 07/16/17 13:59 06/17/17 05:46 Enoxaparin Sodium (Lovenox) 60 mg Q12H SUBQ 06/16/17 14:00 07/16/17 13:59 06/17/17 02:03 Furosemide (Lasix) 40 mg DAILY ORAL 06/16/17 12:00 07/16/17 11:59 06/17/17 09:44 Hydralazine HCl (Apresoline) 50 mg EVERY 8 HOURS ORAL 06/16/17 14:00 07/16/17 13:59 06/17/17 05:46 Lorazepam (Ativan 2mg/ml 1ml) 0.5 mg Q4H PRN IV For Anxiety 06/16/17 07:15 06/23/17 07:14 Methylprednisolone Sodium Succinate (Solu-MEDROL) 60 mg EVERY 6 HOURS IV 06/16/17 12:00 07/16/17 11:59 06/17/17 11:59 Morphine Sulfate (Morphine Sulfate) 2 mg EVERY 4 HOURS PRN IVP severe pain 7-10 06/16/17 07:15 06/23/17 07:14 Nitroglycerin (Ntg) 0.4 mg Q5M X 3 DOSES PRN SL Prn Chest Pain 06/16/17 07:15 07/16/17 07:14 Ondansetron HCl (Zofran) 4 mg Q6H PRN IVP Nausea & Vomiting 06/16/17 07:15 07/16/17 07:14 Piperacillin/ Tazobactam/ Dextrose 50 ml @ 12.5 mls/hr EVERY 8 HOURS IVPB 06/16/17 12:00 06/23/17 11:59 06/17/17 05:45 Promethazine HCl/ Codeine (Phenergan with Codeine) 5 ml EVERY 6 HOURS PRN ORAL cough 06/16/17 07:15 07/16/17 07:14 06/17/17 05:44 Temazepam (Restoril) 15 mg HSPRN PRN ORAL Insomnia 06/16/17 07:15 06/23/17 07:14 Theophylline (Vasiliy-Dur) 100 mg EVERY 12 HOURS ORAL 06/16/17 12:00 07/16/17 11:59 06/17/17 09:44 Warfarin Sodium (Coumadin per pharmacy) 1 ea DAILYPRN PRN MISC Per rx protocol 06/16/17 07:15 07/16/17 07:14 Warfarin Sodium (Coumadin) 5 mg COUMADIN ONCE ORAL 06/17/17 17:00 06/17/17 17:01 CANDIDO MARQUES Jun 17, 2017 12:39
[2017-06-17] MEDS ORDERED: Morphine Sulfate 2mg/ml Inj IVP PRN (13:45)
[2017-06-17 15:54] VITALS: BP 145/76
[2017-06-17] MEDS ORDERED: Morphine Sulfate 10mg/5ml Oral Soln ud ORAL PRN (16:00)
--- NOTE | 2017-06-17 16:28 | Cardiology Report ---
APPROVED REPORT EXAM: Two-dimensional and M-mode echocardiogram with Doppler and color Doppler. INDICATION Left ventricular function M-Mode DIMENSIONS IVSd1.4 (0.7-1.1cm)Left Atrium (MM)4.4 (1.6-4.0cm) LVDd5.4 (3.5-5.6cm)Aortic Root2.7 (2.0-3.7cm) PWd1.1 (0.7-1.1cm)Aortic Cusp Exc.1.8 (1.5-2.0cm) LVDs3.5 (2.5-4.0cm) PWs1.2 cm Normal left ventricular chamber size, systolic function and wall motion. Left ventricular ejection fraction estimated to be 60-65%. Moderate left ventricular hypertrophy. No evidence of pericardial or pleural effusion. Moderate bi-atrial enlargement by 2D. Focal aortic valve sclerosis with adequate cusp excursion. Normal mitral valve leaflets with normal excursion. Normal mitral annulus and aortic root. Pulmonic valve not well visualized. Normal tricuspid valve structure. IVC is normal in size and collapsible with respiration. A color flow and spectral Doppler study was performed and revealed: Trace aortic regurgitation. Moderate mitral regurgitation. Mitral diastolic function not obtainable due to A-FIB. Moderate tricuspid regurgitation. Tricuspid systolic velocities suggests peak right ventricular systolic pressure of 27mmHg
--- NOTE | 2017-06-17 16:32 | Cardiology Report ---
APPROVED REPORT EKG Measurement Heart [id number] Atrial fibrillation with a competing junctional pacemaker Voltage criteria for left ventricular hypertrophy Marked ST abnormality, possible inferior subendocardial injury Prolonged QT Abnormal ECG
[2017-06-17] MEDS ORDERED: Warfarin Sodium 5mg ORAL ONE (17:00)
--- NOTE | 2017-06-17 18:13 | Cardiology Progress Note ---
Assessment/Plan Assessment/Plan [id number] Objective Last 24 Hour Vital Signs Date Time Temp Pulse Resp B/P (MAP) Pulse Ox O2 Delivery O2 Flow Rate FiO2 06/17/17 16:00 85 06/17/17 15:54 98.2 62 20 145/76 96 Room Air 06/17/17 14:07 147/94 06/17/17 14:07 70 147/94 06/17/17 12:00 72 06/17/17 11:29 97.3 70 18 147/94 99 Room Air 06/17/17 09:43 76 129/93 06/17/17 08:35 97.5 76 20 129/93 99 Room Air 06/17/17 08:00 84 06/17/17 05:46 155/100 06/17/17 05:46 76 155/100 06/17/17 04:00 97.9 96 20 146/90 Room Air 06/17/17 04:00 82 06/17/17 00:00 97.3 97 20 139/104 97 Room Air 06/17/17 00:00 68 06/16/17 21:40 160/106 06/16/17 21:39 73 160/106 06/16/17 20:30 78 161/103 06/16/17 20:00 73 Intake and Output 06/17/17 06/18/17 19:00 07:00 Intake Total 910 ml Balance 910 ml Intake Oral 910 ml # Voids 2 # Bowel Movements 1 Laboratory Tests Test 06/17/17 07:30 Prothrombin Time 10.7 SEC (9.30-11.50) Prothromb Time International Ratio 1.0 (0.9-1.1) Troponin I 0.017 ng/mL (0.000-0.056) Pro-B-Type Natriuretic Peptide 1706 pg/mL (0-125) H Microbiology Date/Time Source Procedure Growth Status 06/16/17 21:00 Sputum Gram Stain - Final Resulted 06/16/17 21:00 Sputum Sputum Culture - Preliminary NO GROWTH Resulted DAWNA GURROLA Jun 17, 2017 18:12
[2017-06-17 20:13] VITALS: BP 145/95
--- NOTE | 2017-06-18 00:16 | Consultation ---
DATE OF CONSULTATION: 06/17/2017 CARDIOLOGY CONSULTATION CONSULTING PHYSICIAN: Yao Suazo M.D. REFERRING PHYSICIAN: Enid Quezada M.D. REASON FOR REFERRAL: Atrial fibrillation. HISTORY OF PRESENT ILLNESS: This is a middle-aged female, who is known to me from prior evaluation and hospitalization. The patient presented to the hospital because of shortness of breath and basically, she has had some upper respiratory issues with difficulty breathing and eventually had cough and finally presented to the hospital. It is questionable if she has had episodes of PND. There is 2-pillow orthopnea, occasional palpitation, occasional dizziness, and lightheadedness. No real chest pains. PAST MEDICAL HISTORY: Positive for history of COPD, permanent atrial fibrillation, hypertension, cocaine abuse, history of congestive heart failure, significant mitral regurgitation, has been on anticoagulation, but apparently noncompliant with followups with doctor every 3 months she states. She has a history of cocaine-induced cardiomyopathy as well as systemic hypertension. ALLERGIES: She is allergic to sulfa. SOCIAL HISTORY: She does smoke and use drugs. No alcohol. REVIEW OF SYSTEMS: GASTROINTESTINAL: Bowels are fine. GENITOURINARY: Negative. PULMONARY: Positive coughing and congestion. CONSTITUTIONAL: She is having some sweats, which she attributes to going through menopause. NEUROLOGIC: Negative. PHYSICAL EXAMINATION: GENERAL: Physical examination shows her to be a middle-aged female, in no respiratory distress. NECK: Supple. No jugular venous distention. LUNGS: There are decreased breath sounds on the right side. There are some crackles on the left side. CARDIAC: Irregularly irregular. Not tachycardic. Not bradycardic. There is a holosystolic regurgitant murmur noted. ABDOMEN: Soft and nontender. Positive bowel sounds. EXTREMITIES: There is no clubbing, cyanosis, nor edema. NEUROLOGIC: She is awake, alert, and responsive, in no apparent respiratory distress. LABORATORY AND DIAGNOSTIC DATA: Laboratory values, white count of 5.6, hemoglobin 14.7, and platelet count of 144. Sodium is 147, potassium 4.0, chloride 113, bicarbonate 25, BUN of 18, creatinine 1.3, and glucose of 148. Two sets of cardiac enzymes are all negative. ProBNP is only 1706. Liver function tests abnormal with albumin of 3.2. Coags, INR 1.0. Toxicology screen positive for cocaine on 06/16/2017. Chest x-ray shows borderline cardiomegaly, no acute processes. An echocardiogram shows normal left ventricular systolic function, ejection fraction 60% to 65%, moderate mitral regurgitation, moderate tricuspid regurgitation, and pulmonary artery systolic pressure at this time is 27. ASSESSMENT AND PLAN: 1. Permanent atrial fibrillation. 2. History of mitral regurgitation and tricuspid regurgitation. 3. History of congestive heart failure. 4. History of chronic obstructive pulmonary disease. 5. Medication noncompliance. 6. Cocaine abuse disorder. This patient was admitted to the hospital. She does have some evidence of congestive heart failure, but she does have also underlying COPD . She will be on some diuretics. Echocardiogram did not show any significant left ventricular systolic dysfunction, but she has what was felt on this echocardiogram to be moderate mitral regurgitation and tricuspid regurgitation, but no significant pulmonary hypertension, although that may be poorly visualized. Last echocardiogram showed severe MR and ejection fraction of 55% and pulmonary pressures of 57. Recommend administration of diuretics. She should have anticoagulation resumed with the dose of Coumadin and avoidance of beta-agonist if at all possible and until her Coumadin is therapeutic, I do agree with administration of Lovenox, although I doubt that she will be compliant based on her history. I have recommended that she see her primary care doctor or have labs drawn on a monthly basis, not on an every 3-month basis for [employer] evaluation. Yao Suazo M.D. DR: Katie JOB#: [id number] CC:
[2017-06-18 00:24] VITALS: BP 142/99
[2017-06-18] MEDS: Solu-MEDROL 125mg Inj IV SCH ×4 (00:44→17:26)
[2017-06-18] MEDS: Enoxaparin 60mg Inj SUBQ SCH ×2 (03:04→14:53)
[2017-06-18 04:19] VITALS: BP 138/86
[2017-06-18] MEDS: dilTIAZem HCl 60mg tab ORAL SCH ×3 (05:29→21:59)
[2017-06-18] MEDS: HydrALAZINE 50mg tab ORAL SCH ×3 (05:29→21:56)
[2017-06-18] MEDS: Zosyn 3.375gm/50ml Premix 50 ML IVPB SCH ×3 (05:33→21:57)
[2017-06-18 08:09] LABS: PROTHROMBIN TIME 10.5 SEC (9.30-11.50)
[2017-06-18 08:19] VITALS: BP 140/87
[2017-06-18] MEDS: Carvedilol 12.5mg tab ORAL SCH (10:59)
[2017-06-18] MEDS: Furosemide 40mg tab ORAL SCH (10:59)
[2017-06-18] MEDS: Theophylline ER 100mg ORAL SCH ×2 (11:00→21:54)
[2017-06-18 11:24] VITALS: BP 163/111
[2017-06-18] MEDS ORDERED: NS 275ml ONE (14:12)
[2017-06-18] MEDS ORDERED: Tubing IV Secondary IV ONE (14:12)
[2017-06-18 16:04] VITALS: BP 154/96
[2017-06-18] MEDS ORDERED: Warfarin Sodium 7.5mg ORAL ONE (17:00)
--- NOTE | 2017-06-18 17:39 | Pulmonology Progress Note ---
Assessment/Plan Problems: (1) COPD exacerbation (2) Afib (3) HTN (hypertension) Assessment/Plan in and out of sinus echo reviewed. f/u cardiology recommendations. 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 ROS Limited/Unobtainable: No Constitutional: Reports: no symptoms HEENT: Repors: no symptoms Respiratory: Reports: no symptoms Allergies: Coded Allergies: SULFA (SULFONAMIDE ANTIBIOTICS) (Unverified Allergy, Unknown, 03/29/14) Objective Last 24 Hour Vital Signs Date Time Temp Pulse Resp B/P (MAP) Pulse Ox O2 Delivery O2 Flow Rate FiO2 06/18/17 16:04 97.9 94 18 154/96 99 Room Air 06/18/17 14:46 163/111 06/18/17 14:46 75 163/111 06/18/17 11:24 97.3 75 18 163/111 100 Room Air 06/18/17 10:59 79 140/87 06/18/17 08:19 97.9 79 18 140/87 100 Room Air 06/18/17 08:00 84 06/18/17 05:29 138/86 06/18/17 05:29 75 138/86 06/18/17 04:19 96.8 75 20 138/86 94 Room Air 06/18/17 04:00 90 06/18/17 00:24 96.4 80 20 142/99 Room Air 06/18/17 00:00 79 06/17/17 22:03 145/95 06/17/17 21:38 86 145/95 06/17/17 21:37 86 145/95 06/17/17 20:13 97.3 86 20 145/95 95 Room Air 06/17/17 20:00 91 Intake and Output 06/18/17 06/19/17 19:00 07:00 Intake Total 570 ml Balance 570 ml Intake Oral 570 ml # Voids 4 # Bowel Movements 1 Microbiology Date/Time Source Procedure Growth Status 06/16/17 21:00 Sputum Gram Stain - Final Resulted 06/16/17 21:00 Sputum Sputum Culture - Preliminary NORMAL UPPER RESPIRATORY PRO PRESENT Resulted 06/16/17 18:30 Nasal Nares MRSA Culture - Final NO METHICILLIN RESISTANT STAPH AUREUS... Complete 06/16/17 18:30 Rectum VRE Culture - Final NO VANCOMYCIN RESISTANT ENTEROCOCCUS ... Complete Laboratory Tests 06/18/17 04:40: Prothrombin Time 10.5, Prothromb Time International Ratio 1.0 Current Medications Medications (Trade) Dose Ordered Sig/Ruben Route PRN Reason Start Time Stop Time Status Last Admin Dose Admin Albuterol/ Ipratropium (DuoNeb 0.5-3(2.5)mg/3ml) 3 ml EVERY 4 HOURS PRN HHN dyspnea 06/16/17 07:15 06/21/17 07:14 Carvedilol (Coreg) 25 mg Q12HR ORAL 06/18/17 21:00 07/16/17 20:59 Dextrose (Dextrose 50%) STAT PRN IV Hypoglycemia 06/16/17 07:15 07/16/17 07:14 Diltiazem HCl (Cardizem) 60 mg EVERY 8 HOURS ORAL 06/16/17 14:00 07/16/17 13:59 06/18/17 14:46 Enoxaparin Sodium (Lovenox) 60 mg Q12H SUBQ 06/16/17 14:00 07/16/17 13:59 06/18/17 14:53 Furosemide (Lasix) 40 mg DAILY ORAL 06/16/17 12:00 07/16/17 11:59 06/18/17 10:59 Hydralazine HCl (Apresoline) 50 mg EVERY 8 HOURS ORAL 06/16/17 14:00 07/16/17 13:59 06/18/17 14:46 Lorazepam (Ativan 2mg/ml 1ml) 0.5 mg Q4H PRN IV For Anxiety 06/16/17 07:15 06/23/17 07:14 Methylprednisolone Sodium Succinate (Solu-MEDROL) 60 mg EVERY 6 HOURS IV 06/16/17 12:00 07/16/17 11:59 06/18/17 17:26 Morphine Sulfate (Morphine 10mg/ 5ml Oral Soln) 6 mg Q4H PRN ORAL SEVERE PAIN 06/17/17 16:00 06/24/17 15:59 Nitroglycerin (Ntg) 0.4 mg Q5M X 3 DOSES PRN SL Prn Chest Pain 06/16/17 07:15 07/16/17 07:14 Ondansetron HCl (Zofran) 4 mg Q6H PRN IVP Nausea & Vomiting 06/16/17 07:15 07/16/17 07:14 Piperacillin/ Tazobactam/ Dextrose 50 ml @ 12.5 mls/hr EVERY 8 HOURS IVPB 06/16/17 12:00 06/23/17 11:59 06/18/17 14:46 Promethazine HCl/ Codeine (Phenergan with Codeine) 5 ml EVERY 6 HOURS PRN ORAL cough 06/16/17 07:15 07/16/17 07:14 06/17/17 17:27 Temazepam (Restoril) 15 mg HSPRN PRN ORAL Insomnia 06/16/17 07:15 06/23/17 07:14 Theophylline (Vasiliy-Dur) 100 mg EVERY 12 HOURS ORAL 06/16/17 12:00 07/16/17 11:59 06/18/17 11:00 Warfarin Sodium (Coumadin per pharmacy) 1 ea DAILYPRN PRN MISC Per rx protocol 06/16/17 07:15 07/16/17 07:14 CANDIDO MARQUES Jun 18, 2017 17:39
--- NOTE | 2017-06-18 19:00 | Cardiology Progress Note ---
Assessment/Plan Assessment/Plan 1. Permanent atrial fibrillation. 2. History of mitral regurgitation and tricuspid regurgitation. 3. History of congestive heart failure. 4. History of chronic obstructive pulmonary disease. 5. Medication noncompliance. 6. Cocaine abuse disorder. hr is fine needs bp cntrol acei anticoagualtion on couamdin Subjective Cardiovascular: Denies: chest pain, lightheadedness, palpitations Respiratory: Denies: shortness of breath Objective Last 24 Hour Vital Signs Date Time Temp Pulse Resp B/P (MAP) Pulse Ox O2 Delivery O2 Flow Rate FiO2 06/18/17 16:04 97.9 94 18 154/96 99 Room Air 06/18/17 16:00 93 06/18/17 14:46 163/111 06/18/17 14:46 75 163/111 06/18/17 12:00 82 06/18/17 11:24 97.3 75 18 163/111 100 Room Air 06/18/17 10:59 79 140/87 06/18/17 08:19 97.9 79 18 140/87 100 Room Air 06/18/17 08:00 84 06/18/17 05:29 138/86 06/18/17 05:29 75 138/86 06/18/17 04:19 96.8 75 20 138/86 94 Room Air 06/18/17 04:00 90 06/18/17 00:24 96.4 80 20 142/99 Room Air 06/18/17 00:00 79 06/17/17 22:03 145/95 06/17/17 21:38 86 145/95 06/17/17 21:37 86 145/95 06/17/17 20:13 97.3 86 20 145/95 95 Room Air 06/17/17 20:00 91 Intake and Output 06/18/17 06/19/17 19:00 07:00 Intake Total 820 ml Balance 820 ml Intake Oral 820 ml # Voids 5 # Bowel Movements 1 Laboratory Tests Test 06/18/17 04:40 Prothrombin Time 10.5 SEC (9.30-11.50) Prothromb Time International Ratio 1.0 (0.9-1.1) Microbiology Date/Time Source Procedure Growth Status 06/16/17 21:00 Sputum Gram Stain - Final Resulted 06/16/17 21:00 Sputum Sputum Culture - Preliminary NORMAL UPPER RESPIRATORY PRO PRESENT Resulted 06/16/17 18:30 Nasal Nares MRSA Culture - Final NO METHICILLIN RESISTANT STAPH AUREUS... Complete 06/16/17 18:30 Rectum VRE Culture - Final NO VANCOMYCIN RESISTANT ENTEROCOCCUS ... Complete DAWNA GURROLA Jun 18, 2017 19:00
[2017-06-18 20:00] VITALS: BP 134/81
[2017-06-18] MEDS: Carvedilol 25mg Tab ORAL SCH (21:55)
[2017-06-19] VITALS: BP 105/75
[2017-06-19] MEDS: Solu-MEDROL 125mg Inj IV SCH ×4 (00:33→17:43)
[2017-06-19] MEDS: Enoxaparin 60mg Inj SUBQ SCH ×2 (02:45→14:40)
[2017-06-19 04:17] VITALS: BP 142/106
[2017-06-19] MEDS: dilTIAZem HCl 60mg tab ORAL SCH ×2 (06:05→14:38)
[2017-06-19] MEDS: Zosyn 3.375gm/50ml Premix 50 ML IVPB SCH (06:05)
[2017-06-19] MEDS: HydrALAZINE 50mg tab ORAL SCH ×2 (06:06→14:38)
[2017-06-19 08:00] VITALS: BP 141/90
[2017-06-19] MEDS ORDERED: Lisinopril 20mg tab ORAL SCH (09:00)
[2017-06-19] MEDS: Furosemide 40mg tab ORAL SCH (09:29)
[2017-06-19] MEDS: Theophylline ER 100mg ORAL SCH (09:29)
[2017-06-19] MEDS: Carvedilol 25mg Tab ORAL SCH (09:30)
[2017-06-19 09:42] LABS: INR 1.5 (0.9-1.1); PROTHROMBIN TIME 15.6 SEC (9.30-11.50)
--- NOTE | 2017-06-19 10:18 | Pulmonology Progress Note ---
Assessment/Plan Problems: (1) COPD exacerbation (2) Afib (3) HTN (hypertension) Assessment/Plan heart rate controlled echo reviewed. f/u cardiology recommendations. dc home with outpatient f/u Subjective ROS Limited/Unobtainable: No Constitutional: Reports: no symptoms HEENT: Repors: no symptoms Respiratory: Reports: no symptoms Allergies: Coded Allergies: SULFA (SULFONAMIDE ANTIBIOTICS) (Unverified Allergy, Unknown, 03/29/14) Objective Last 24 Hour Vital Signs Date Time Temp Pulse Resp B/P (MAP) Pulse Ox O2 Delivery O2 Flow Rate FiO2 06/19/17 09:30 141/90 06/19/17 09:30 88 141/90 06/19/17 08:00 97.9 88 18 141/90 95 Room Air 06/19/17 06:06 142/106 06/19/17 06:05 82 142/106 06/19/17 04:17 97.3 82 18 142/106 92 Room Air 06/19/17 04:00 78 06/19/17 00:00 92.6 78 18 105/75 98 Room Air 06/19/17 00:00 76 06/18/17 21:59 85 134/81 06/18/17 21:56 134/81 06/18/17 21:55 85 134/81 06/18/17 20:00 98.2 85 18 134/81 97 Room Air 06/18/17 20:00 85 06/18/17 16:04 97.9 94 18 154/96 99 Room Air 06/18/17 16:00 93 06/18/17 14:46 163/111 06/18/17 14:46 75 163/111 06/18/17 12:00 82 06/18/17 11:24 97.3 75 18 163/111 100 Room Air 06/18/17 10:59 79 140/87 Intake and Output 06/19/17 06/20/17 19:00 07:00 Intake Total 360 ml Balance 360 ml Intake Oral 360 ml # Voids 1 General Appearance: WD/WN HEENT: normocephalic, atraumatic Respiratory/Chest: chest wall non-tender, normal breath sounds Cardiovascular: normal peripheral pulses Abdomen: soft, non tender, no organomegaly Genitourinary: normal external genitalia Extremities: no cyanosis Skin: no rash Microbiology Date/Time Source Procedure Growth Status 06/16/17 21:00 Sputum Gram Stain - Final Complete 06/16/17 21:00 Sputum Sputum Culture - Final NORMAL UPPER RESPIRATORY PRO AT 48 ... Complete 06/16/17 18:30 Nasal Nares MRSA Culture - Final NO METHICILLIN RESISTANT STAPH AUREUS... Complete 06/16/17 18:30 Rectum VRE Culture - Final NO VANCOMYCIN RESISTANT ENTEROCOCCUS ... Complete Laboratory Tests 06/19/17 07:10: Prothrombin Time 15.6H, Prothromb Time International Ratio 1.5H Current Medications Medications (Trade) Dose Ordered Sig/Ruben Route PRN Reason Start Time Stop Time Status Last Admin Dose Admin Albuterol/ Ipratropium (DuoNeb 0.5-3(2.5)mg/3ml) 3 ml EVERY 4 HOURS PRN HHN dyspnea 06/16/17 07:15 06/21/17 07:14 Carvedilol (Coreg) 25 mg Q12HR ORAL 06/18/17 21:00 07/16/17 20:59 06/19/17 09:30 Dextrose (Dextrose 50%) STAT PRN IV Hypoglycemia 06/16/17 07:15 07/16/17 07:14 Diltiazem HCl (Cardizem) 60 mg EVERY 8 HOURS ORAL 06/16/17 14:00 07/16/17 13:59 06/19/17 06:05 Enoxaparin Sodium (Lovenox) 60 mg Q12H SUBQ 06/16/17 14:00 07/16/17 13:59 06/19/17 02:45 Furosemide (Lasix) 40 mg DAILY ORAL 06/16/17 12:00 07/16/17 11:59 06/19/17 09:29 Hydralazine HCl (Apresoline) 50 mg EVERY 8 HOURS ORAL 06/16/17 14:00 07/16/17 13:59 06/19/17 06:06 Lisinopril (Prinivil) 20 mg DAILY ORAL 06/19/17 09:00 07/19/17 08:59 06/19/17 09:30 Lorazepam (Ativan 2mg/ml 1ml) 0.5 mg Q4H PRN IV For Anxiety 06/16/17 07:15 06/23/17 07:14 Methylprednisolone Sodium Succinate (Solu-MEDROL) 60 mg EVERY 6 HOURS IV 06/16/17 12:00 07/16/17 11:59 06/19/17 06:05 Morphine Sulfate (Morphine 10mg/ 5ml Oral Soln) 6 mg Q4H PRN ORAL SEVERE PAIN 06/17/17 16:00 06/24/17 15:59 Nitroglycerin (Ntg) 0.4 mg Q5M X 3 DOSES PRN SL Prn Chest Pain 06/16/17 07:15 07/16/17 07:14 Ondansetron HCl (Zofran) 4 mg Q6H PRN IVP Nausea & Vomiting 06/16/17 07:15 07/16/17 07:14 Piperacillin/ Tazobactam/ Dextrose 50 ml @ 12.5 mls/hr EVERY 8 HOURS IVPB 06/16/17 12:00 06/23/17 11:59 06/19/17 06:05 Promethazine HCl/ Codeine (Phenergan with Codeine) 5 ml EVERY 6 HOURS PRN ORAL cough 06/16/17 07:15 07/16/17 07:14 06/17/17 17:27 Temazepam (Restoril) 15 mg HSPRN PRN ORAL Insomnia 06/16/17 07:15 06/23/17 07:14 Theophylline (Vasiliy-Dur) 100 mg EVERY 12 HOURS ORAL 06/16/17 12:00 07/16/17 11:59 06/19/17 09:29 Warfarin Sodium (Coumadin per pharmacy) 1 ea DAILYPRN PRN MISC Per rx protocol 06/16/17 07:15 07/16/17 07:14 Warfarin Sodium (Coumadin) 7.5 mg COUMADIN ONCE ORAL 06/19/17 17:00 06/19/17 17:01 CANDIDO MARQUES Jun 19, 2017 10:18
[2017-06-19 12:00] VITALS: BP 148/95
[2017-06-19 16:59] VITALS: BP 143/85
[2017-06-19] MEDS ORDERED: Warfarin Sodium 7.5mg ORAL ONE (17:00)
[2017-06-19] MEDS ORDERED: NS 275ml ONE (18:29)
--- NOTE | 2017-06-20 18:35 | Cardiology Report ---
APPROVED REPORT EKG Measurement Heart [id number] Atrial fibrillation Voltage criteria for left ventricular hypertrophy Abnormal ECG
--- NOTE | 2017-06-21 13:55 | Discharge Summary ---
Discharge Summary Hospital Course Date of Admission Jun 16, 2017 at 06:56 Date of Discharge Jun 19, 2017 at 18:30 Admitting Diagnosis atrial fibrillation RYLEE Menezes is a 56 year old female who was admitted on Jun 16, 2017 at 06:56 for Atrial Fibrillation Hospital Course dc summary #[id number] Discharge Medications Continued Medications: Diltiazem Hcl* (Cardizem*) 60 Mg Tablet 60 MG ORAL EVERY 8 HOURS for 30 Days, TAB Furosemide* (Lasix*) 40 Mg Tablet 40 MG ORAL DAILY, TAB Hydralazine HCl (Hydralazine HCl) 50 Mg Tablet 50 MG ORAL EVERY 8 HOURS for 30 Days, TAB Warfarin Sod (Coumadin*) 7.5 Mg Tablet 7.5 MG ORAL DAILY, #5 TAB Discontinued Medications: Carvedilol (Coreg) 12.5 Mg Tablet 25 MG ORAL Q12HR for 30 Days, TAB Discharge Condition Upon Discharge: stable Discharge Disposition Patient was discharged to Home (01) Discharge Diagnoses: Discharge Instructions Discharge Instructions Special Instructions I have been assigned to complete a D/C Summary on this account. I was not involved in the patient management Akanksha Tavarez NP ([facility]) Jun 21, 2017 13:55
--- NOTE | 2017-06-22 08:01 | Discharge Summary 2 SIG ---
DATE OF ADMISSION: 06/16/2017 DATE OF DISCHARGE: 06/19/2017 REASON FOR ADMISSION: 56-year-old female with history of chronic obstructive pulmonary disease, hypertension, and congestive heart failure, presented to emergency department with difficulty breathing. She reported cough. She was using inhalers at home, but ran out of her medication. She reported increased congestion and wheezing. No nausea, no vomiting. Symptoms became progressively worse over the last couple of days. Workup in the emergency room revealed negative troponin. Blood pressure was elevated- 178/112. Chest x-ray showed borderline cardiomegaly, but no acute process. No leukocytosis. Stable hemoglobin and hematocrit. Stable electrolytes. ECG with evidence of atrial fibrillation, with controlled rate. The patient was admitted for further management. ADMITTING DIAGNOSES: 1. Chronic obstructive pulmonary disease exacerbation. 2. Congestive heart failure. 3. Atrial fibrillation. HOSPITAL COURSE: The patient was admitted to telemetry floor. Supplemental oxygen and pulmonary toilet were provided as needed. The patient was on the IV steroids. Sputum culture was negative. The patient was on empiric antibiotics. Trial of theophylline started. Chest x-ray revealed no acute cardiopulmonary pathology. Cardiology consult was requested. Top Installer seen and evaluated the patient. Top Installer concluded that the patient had a permanent atrial fibrillation. INR was subtherapeutic. The patient was on Lovenox and Coumadin to reach a goal of therapeutic INR. Serial troponin were negative. Echocardiogram revealed preserved ejection fraction of 60% to 65%, moderate left ventricular hypertrophy, moderate mitral regurgitation, moderate tricuspid regurgitation, right ventricular systolic pressure of 27. The patient was started on diuretic. According to industrial millwright, the patient had some evidence of diastolic dysfunction. Per industrial millwright, the patient should be on the diuretics while in the hospital. Top Installer recommended to check protime with the primary medical doctor once in a month (not every 3 months as done before). Top Installer also recommended to avoid beta-abimbola at all if possible. Continue blood pressure management with antihypertensive medications from other classes. Blood pressure was stable with current regimen. The patient was encouraged compliance with medication regimen. Urine toxicology screen was positive for cocaine. The patient was counseled on abstinence from street drugs The patient was stable for discharge home. FINAL DIAGNOSES: 1. Chronic obstructive pulmonary disease exacerbation. 2. Congestive heart failure with diastolic dysfunction. 3. Permanent atrial fibrillation. 4. Moderate tricuspid regurgitation. 5. Moderate mitral regurgitation. 6. Noncompliance. 7. Cocaine abuse. 8. Hypertension. DISCHARGE MEDICATIONS: Please refer to medication reconciliation list. DISCHARGE INSTRUCTIONS: The patient was discharged home. Follow up next week with the primary medical doctor to check Protime. Patient was encouraged compliance with medication. Enid Quezada M.D. I have been assigned to dictate discharge summary on this account and I was not involved in the patient's management. Akanksha Tavarez ([facility] CenterLalita NWilmar DR: ROGER JOB#: [id number] CC: SEAN
== END 2017-06-19 18:30 | disposition home or self-care (01) | DRG 140 ==
LOC: EMR 05:18 → 2E 06:56 → EDBEDREQ 10:17 → 2E 11:44
DX: J44.1 Chronic obstructive pulmonary disease with (acute) exacerbation (principal); I50.30 Unspecified diastolic (congestive) heart failure; I10 Essential (primary) hypertension; Z79.01 Long term (current) use of anticoagulants; Z88.2 Allergy status to sulfonamides; I48.91 Unspecified atrial fibrillation; I34.0 Nonrheumatic mitral (valve) insufficiency; I36.1 Nonrheumatic tricuspid (valve) insufficiency; I48.2 Chronic atrial fibrillation; Z91.19 Patient's noncompliance with other medical treatment and regimen; Z91.14 Patient's other noncompliance with medication regimen; F14.188 Cocaine abuse with other cocaine-induced disorder
CPT/HCPCS: 36415; 71010; 80053; 80307; 82550; 82553; 83880; 84484; 85025; 85610; 87070; 87081; 87205; 93005; 93306; 94640; 94664; 99285; J7620

== ENCOUNTER 2017-10-19 07:17 | Emergency (ER) | payer MEDICAID, OTHER ==
[~2017-10-19] VITALS: Ht 162.6 cm; Wt 63.5 kg
[2017-10-19] VITALS (18 sets, daily range): BP systolic 130–246; BP diastolic 74–174
--- NOTE | 2017-10-19 07:34 | Emergency Room Report ---
History of Present Illness General Chief Complaint: To Be Triaged Source: Family Member Present Illness HPI 57-year-old female, history of hypertension, presenting with altered mental status. History is obtained by . states he believes patient was smoking crack cocaine. Patient was awake and alert today. And then suddenly became unresponsive. states that it looked like she was having a stroke. Patient is denies any other drug use. Has been at her normal state of health states she is on xarelto but unknown reason Allergies: Coded Allergies: SULFA (SULFONAMIDE ANTIBIOTICS) (Unverified Allergy, Unknown, 03/29/14) Patient History Past Medical History: see triage record Past Surgical History: none Pertinent Family History: none Reviewed Nursing Documentation: PMH: Agreed, PSxH: Agreed Nursing Documentation-PMH Hx Cardiac Problems: Yes Hx Hypertension: Yes Hx Pacemaker: No Hx COPD: Yes Hx Cancer: No Hx Gastrointestinal Problems: No Hx Neurological Problems: No Review of Systems All Other Systems: limited Physical Exam Sp02 EP Interpretation: reviewed, normal General Appearance: other - Unresponsive, intermittently moving Head: normocephalic, atraumatic Eyes: bilateral eye other - R gaze, pupils 2mm nonreactive ENT: normal ENT inspection, normal pharynx, normal voice, moist mucus membranes Neck: no meningismus Respiratory: other - normal b/s, chest symmetrical Cardiovascular #1: normal inspection, regular rate, rhythm, no edema, normal capillary refill Cardiovascular #2: 2+ radial (R), 2+ radial (L) Gastrointestinal: soft, other - no grimace to deep palpation Musculoskeletal: normal inspection, back normal, normal range of motion, non- tender Neurologic: other - GCS 6 - nonverbal, R sided eye gaze when open eyelids, withdraws to pain. Psychiatric: other - not responsive Skin: normal inspection, normal color, no rash, warm/dry, well hydrated, normal turgor Procedures Critical Care Time Critical Care Time 40 minutes of CC time 57-year-old female, altered mental status Found to have intracranial bleed VS: Hypertensive PLAN: IV access, labs, CT head, intubation, meds Anticipate transfer to [facility] CC time also includes review of labs, review of EMR, discussion with family and paperwork from SNF, d/w hospitalist CC could include dosing of pressors, additional Abx CC time does not include procedures Intubation Intubation : Consent: Emergent Intubation Method: orotracheal Tube Size (cm): 7.5 Medications: Etomidate, Rocuronium Breath Sounds after Intubation: equal Intubation Complications: no complications Post Intubation Xray: Yes Attempts: One Patient Tolerated: Well Complications: None Medical Decision Making Diagnostic Impression: Primary Impression: Intraparenchymal hemorrhage of brain ER Course 57-year-old female presents with altered mental status DDX: Intoxication Electrolyte disturbance: hypoglycemia vs. hyponatremia vs. hypocalcemia vs. hypomagnesemia Cardiac: Arrythmia/acs Intracranial pathology: intracranial bleed, stroke Versus infections, UTI pneumonia meningitis Plan: BGM EKG Labs, tox labs Consider CT ER course: CT scan, patient with massive intraventricular/intraparenchymal hemorrhage Patient intubated immediately Mannitol 65 GM, Keppra, labetalol given Propofol drip started Nicardipine drip started FFP started in ED I spoke with patient's at bedside, he was told of patient's critical condition/significant morbidity [facility] contacted for transfer for higher level of care at 8:10am Disposition: Patient requires xfer to [facility] for higher level of care DW neurointensivist Dr Hernández who has accepted patient for transfer Please note that this Emergency Department Report was dictated using Gooddlerconstruction technician technology software, occasionally this can lead to erroneous entry secondary to interpretation by the dictation equipment. EKG Diagnostic Results EP Interpretation: Yes Rate: normal Rhythm: NSR ST Segments: ST depression V6, T wave inversion in V6 ASA given to patient: Yes Rhythm Strip EP Interpretation: Yes Rate: 80 Rhythm: NSR, no PVCs, no ectopy Chest X-ray CXR: Ordered: Yes 1 view Indication: Seizure EP interpretation: Yes Interpretation: ETT in appropriate position Impression: cardiomgealy, ETT in approp position Electronically signed by Amy Velez MD Laboratory Tests Test 10/19/17 07:20 10/19/17 08:14 White Blood Count 6.0 K/UL (4.8-10.8) Red Blood Count 6.40 M/UL (4.20-5.40) H Hemoglobin 17.8 G/DL (12.0-16.0) H Hematocrit 54.9 % (37.0-47.0) H Mean Corpuscular Volume 86 FL (80-99) Mean Corpuscular Hemoglobin 27.8 PG (27.0-31.0) Mean Corpuscular Hemoglobin Concent 32.4 G/DL (32.0-36.0) Red Cell Distribution Width 12.7 % (11.6-14.8) Platelet Count 131 K/UL (150-450) L Mean Platelet Volume 11.5 FL (6.5-10.1) H Neutrophils (%) (Auto) 67.4 % (45.0-75.0) Lymphocytes (%) (Auto) 22.9 % (20.0-45.0) Monocytes (%) (Auto) 6.3 % (1.0-10.0) Eosinophils (%) (Auto) 1.8 % (0.0-3.0) Basophils (%) (Auto) 1.7 % (0.0-2.0) Prothrombin Time 11.2 SEC (9.30-11.50) Prothrombin Time INR 1.1 (0.9-1.1) PTT 27 SEC (23-33) Urine Color Pale yellow Urine Appearance Clear Urine pH 8 (4.5-8.0) Urine Specific [place] 1.015 (1.005-1.035) Urine Protein 3+ (NEGATIVE) H Urine Glucose (UA) 1+ (NEGATIVE) H Urine Ketones Negative (NEGATIVE) Urine Occult Blood Negative (NEGATIVE) Urine Nitrite Negative (NEGATIVE) Urine Bilirubin Negative (NEGATIVE) Urine Urobilinogen Normal MG/DL (0.0-1.0) Urine Leukocyte Esterase Negative (NEGATIVE) Urine RBC 0-2 /HPF (0 - 2) Urine WBC 0-2 /HPF (0 - 2) Urine Squamous Epithelial Cells Occasional /LPF Urine Bacteria Occasional /HPF (NONE) Sodium Level 141 MMOL/L (136-145) Potassium Level 3.3 MMOL/L (3.5-5.1) L Chloride Level 102 MMOL/L (98-107) Carbon Dioxide Level 29 MMOL/L (21-32) Anion Gap 10 mmol/L (5-15) Blood Urea Nitrogen 17 mg/dL (7-18) Creatinine 1.2 MG/DL (0.55-1.30) Estimate Glomerular Filtration Rate 56.1 mL/min (>60) Glucose Level 142 MG/DL (74-106) H Calcium Level 9.0 MG/DL (8.5-10.1) Total Bilirubin 0.5 MG/DL (0.2-1.0) Aspartate Amino Transferase (AST) 18 U/L (15-37) Alanine Aminotransferase (ALT) 20 U/L (12-78) Alkaline Phosphatase 127 U/L (46-116) H Total Creatine Kinase 85 U/L (26-308) Troponin I 0.002 ng/mL (0.000-0.056) Pro-B-Type Natriuretic Peptide 1454 pg/mL (0-125) H Total Protein 7.6 G/DL (6.4-8.2) Albumin 4.0 G/DL (3.4-5.0) Globulin 3.6 g/dL Albumin/Globulin Ratio 1.1 (1.0-2.7) Salicylates Level 1.6 ug/mL (2.8-20) L Urine Opiates Screen Negative (NEGATIVE) Acetaminophen Level < 2 MCG/ML (10-30) L Urine Barbiturates Screen Negative (NEGATIVE) Phencyclidine (PCP) Screen Negative (NEGATIVE) Urine Amphetamines Screen Negative (NEGATIVE) Urine Benzodiazepines Screen Negative (NEGATIVE) Urine Cocaine Screen Positive (NEGATIVE) H Urine Marijuana (THC) Screen Negative (NEGATIVE) Serum Alcohol < 3 mg/dL Arterial Blood pH 7.300 (7.350-7.450) Arterial Blood Partial Pressure CO2 49.2 mmHg (35.0-45.0) H Arterial Blood Partial Pressure O2 202.4 mmHg (75.0-100.0) H Arterial Blood HCO3 23.8 mmol/L (22.0-26.0) Arterial Blood Oxygen Saturation 99.1 % (92.0-98.0) H Arterial Blood Base Excess -3.[address]/MRI/US Diagnostic Results CT/MRI/US Diagnostic Results : Imaging Test Ordered: CT head Impression CT HEAD: Comparison: None available Acute intraparenchymal hemorrhage in the left basal ganglia and left thalamus measuring 4.5 x 3.6 x 3.4 cm. There is perifocal edema. There is large amount of extension of hemorrhage into the ventricular system. There is midline shift to the right of 6 mm. Basal cisterns are still patent. Extensive periventricular and deep white matter chronic microvascular ischemic changes of the white matter. No skull fractures. Disposition: [facility] Condition: Critical Amy Velez M.D. Oct 19, 2017 07:34
[2017-10-19] MEDS ORDERED: XARELTO10 MG ORAL (07:42)
[2017-10-19] MEDS ORDERED: LISINOPRIL10 MG ORAL (07:42)
[2017-10-19] MEDS ORDERED: CARVEDILOL25 MG ORAL (07:43)
[2017-10-19 07:49] LABS: APPEARANCE,URINE CLEAR; BILIRUBIN, URINE NEGATIVE (NEGATIVE); COLOR,URINE PALE YELLOW; GLUCOSE, URINE (UA) 1+ (NEGATIVE); KETONES,URINE NEGATIVE (NEGATIVE); LEUKOCYTE ESTERASE ,URINE NEGATIVE (NEGATIVE); NITRITE,URINE NEGATIVE (NEGATIVE); PH,URINE 8 (4.5-8.0); PROTEIN,URINE 3+ (NEGATIVE); UROBILINOGEN,URINE NORMAL MG/DL (0.0-1.0)
[2017-10-19 07:55] LABS: BASOPHILS % (AUTO) 1.7 % (0.0-2.0); EOSINOPHILS % (AUTO) 1.8 % (0.0-3.0); HEMATOCRIT 54.9 % (37.0-47.0); HEMOGLOBIN 17.8 G/DL (12.0-16.0); LYMPHOCYTES % (AUTO) 22.9 % (20.0-45.0); MEAN CORPUSCULAR VOLUME 86 FL (80-99); MONOCYTES % (AUTO) 6.3 % (1.0-10.0); NEUTROPHILS % (AUTO) 67.4 % (45.0-75.0); PLATELET COUNT 131 K/UL (150-450); RED CELL DISTRIBUTION WIDTH 12.7 % (11.6-14.8)
[2017-10-19 08:11] LABS: ANION GAP 10 mmol/L (5-15); BLOOD UREA NITROGEN 17 mg/dL (7-18); CARBON DIOXIDE 29 MMOL/L (21-32); CHLORIDE 102 MMOL/L (98-107); CREATININE 1.2 MG/DL (0.55-1.30); POTASSIUM 3.3 MMOL/L (3.5-5.1); SODIUM 141 MMOL/L (136-145)
[2017-10-19] MEDS ORDERED: levETIRAcetam 500mg vial IV ONE (08:12)
[2017-10-19] MEDS ORDERED: Labetalol 5mg/ml 20ml vial IV ONE ×2 (08:15→08:30)
[2017-10-19] MEDS ORDERED: Mannitol 20% IV 500 ML ONE (08:20)
[2017-10-19] MEDS: levETIRAcetam 1,500 MG in D5W 95 ML IVPB SCH ×2 (08:21→08:28)
[2017-10-19 08:22] LABS: ALANINE AMINOTRANSFERASE 20 U/L (12-78); ALBUMIN/GLOBULIN RATIO 1.1 (1.0-2.7); ALKALINE PHOSPHATASE 127 U/L (46-116); ASPARTATE AMINO TRANSFERASE 18 U/L (15-37); BILIRUBIN,TOTAL 0.5 MG/DL (0.2-1.0)
[2017-10-19 08:25] LABS: INR 1.1 (0.9-1.1)
[2017-10-19 08:28] LABS: CREATINE KINASE 85 U/L (26-308)
[2017-10-19] MEDS ORDERED: Zemuron 50mg/5ml Inj IV ONE (08:30)
[2017-10-19] MEDS ORDERED: Etomidate 40mg/20ml Inj IV ONE (08:30)
[2017-10-19] MEDS ORDERED: Mannitol 20% IV 500 ML IV ONE (08:30)
--- NOTE | 2017-10-19 08:44 | Diagnostic Imaging Report ---
Indication: Headache. Altered mental status Technique: Contiguous 5 mm thick transaxial imaging of the head obtained in a Siemens Sensation [address] scanner. Soft tissue and bone windows generated. Automatic Exposure Control was utilized. Total Dose length Product (DLP): 1383.[address] Dose Index Volume (CTDIvol): 70.38 mGy Comparison: none Findings: 4.3 x 3.8 x 3.7 cm hematoma centered about the left thalamus demonstrated. The acute hematoma extends into the third ventricle. There is extensive blood within the third, lateral ventricles and fourth ventricle. There is partial effacement of the basal cisterns. There is midline shift from left to right of approximately 8 to 9 mm. Scattered white matter low-attenuation demonstrated, nonspecific but may be on the basis of chronic small vessel disease. The bones are unremarkable. IMPRESSION: Acute left thalamic bleed with intraventricular extension and mild hydrocephalus. Associated 8 mm eccp-og-agold subfalcine herniation. Nonspecific white matter low attenuation. Findings may be due to chronic small vessel disease. Critical value communication. Findings were discussed via telephone with Dr. Velez by the statrad physician 08:00, 10/19/[address] scanner at [facility] is accredited by the [employer] [employer] and the scans are performed using dose optimization techniques as appropriate to a performed exam including Automatic Exposure control.
[2017-10-19] MEDS ORDERED: niCARdipine HCl 200 ML IV SCH (08:45)
--- NOTE | 2017-10-19 10:01 | Diagnostic Imaging Report ---
Indication: Dyspnea Comparison: 06/16/2017 A single view chest radiograph was obtained. Findings: Perihilar congestion with prominent vascularity demonstrated. Heart is enlarged slightly. There is mild interstitial edema suspected. Endotracheal tube is in good position 5 cm above the milad. Bones are osteopenic. IMPRESSION: Evidence of mild CHF.
--- NOTE | 2017-10-19 18:29 | Cardiology Report ---
APPROVED REPORT EKG Measurement Heart [id number] Atrial fibrillation Voltage criteria for left ventricular hypertrophy Prolonged QT Abnormal ECG motion / tremor artifact randi affect interpretation
== END 2017-10-19 10:20 | disposition short-term general hospital (02) ==
LOC: EMR 07:30
DX: I61.8 Other nontraumatic intracerebral hemorrhage (principal); I10 Essential (primary) hypertension; J44.9 Chronic obstructive pulmonary disease, unspecified; Z88.2 Allergy status to sulfonamides; F14.90 Cocaine use, unspecified, uncomplicated
CPT/HCPCS: 31500; 36415; 36600; 70450; 71045; 80053; 80307; 80329; 81003; 82550; 83880; 84478; 84484; 85025; 85610; 85730; 86850; 86900; 86901; 86927; 93005; 94002; 94003; 94664; 96374; 96375; 99291; J1953; J2150; J2704; Z7502